=== PATIENT | male | born 1940 | race Caucasian/White ===

== ENCOUNTER → 2016-10-20 | Outpatient (CLI) | payer MEDICARE ==
[~2016-10-20] MED LIST: /WARF5TA; CORD200T; LASI40TA; LIPI80TA; LUMIGAN EYE; PRIN20TA3; TENO100T
[2016-10-20 07:56] LABS: INR 2.89
== END ==
LOC: M LAB 06:47
PROVIDERS: ATTEND Physician Assistant
DX: I48.0 Paroxysmal atrial fibrillation (principal)

== ENCOUNTER 2016-10-25 11:48 | Inpatient (IN) | payer MEDICARE ==
[~2016-10-25] VITALS: Ht 175.3 cm; Wt 99.5 kg
[~2016-10-25 11:48] MED LIST changes: -AMIO20TA PO; -AMLO5TAB2 PO; -ATEN50TA2 PO; -ATOR40TA PO; -AUGM875T27 PO; -BACL10TA2 PO; -DRIS50002 PO; -FURO40TA2 PO; -LISI40TAB PO; -LOSA100T36 PO; -METF-699 PO; -OLOP1OPD OU; -TRAV04OPD OU; -WARF-18 PO; -WARF-23 PO
[2016-10-25] MEDS ORDERED: ALBUTEROL SULFATE 2.5 MG/0.5 ML INH NEB SOLN As Ordered ONE (13:04)
[2016-10-25] MEDS ORDERED: IPRATROPIUM 0.5MG/ALBUTEROL 2.5MG INH SOL UD 3ML (DUONEB)(J7620) As Ordered ONE (13:04)
[2016-10-25] MEDS ORDERED: cefTRIAXone SOD 1 GM VIAL (J0696) As Ordered ONE (13:07)
[2016-10-25] MEDS ORDERED: AZITHROMYCIN INJ 500MG VIAL (J0456) As Ordered ONE (13:07)
[2016-10-25 13:17] LABS: BASO % 0.4 % (0.0-1.0); EOS # 0.1 K/mm3 (0.0-0.50); EOS % 1.7 % (0.0-3.0); LARGE UNSTAINED CELL # 0.2 K/mm3 (0.0-0.4); LARGE UNSTAINED CELL % 4.1 % (0.0-4.0); LYMPH # 0.8 K/mm3 (1.5-4.5); LYMPH % 17.5 % (24.0-44.0); MEAN CORPUSCULAR HGB CONC 34.5 g/dl (32.0-36.5); MEAN CORPUSCULAR VOLUME 89.9 fl (80.0-96.0); MONO # 0.3 K/mm3 (0.0-0.8); MONO % 6.1 % (0.0-5.0); NEUTROPHILS # 3.1 K/mm3 (1.8-7.7); NEUTROPHILS % 70.3 % (36.0-66.0); PLATELET COUNT, AUTOMATED 181 k/mm3 (150-450); RED CELL DISTRIBUTION WIDTH 13.3 % (11.5-14.5); WHITE BLOOD COUNT 4.3 K/mm3 (4.0-10.0)
[2016-10-25 13:27] LABS: INR 2.64
[2016-10-25 13:30] LABS: ANION GAP 9 MEQ/L (8-16); BLOOD UREA NITROGEN 16 MG/DL (7-18); CALCIUM LEVEL 8.2 MG/DL (8.8-10.2); CARBON DIOXIDE LEVEL 29 MEQ/L (21-32); CHLORIDE LEVEL 100 MEQ/L (98-107); CREATININE FOR GFR 1.06 MG/DL (0.70-1.30); GLOMERULAR FILTRATION RATE > 60.0 (>42); GLUCOSE, FASTING 130 MG/DL (83-110); POTASSIUM SERUM 3.6 MEQ/L (3.5-5.1); SODIUM LEVEL 138 MEQ/L (136-145)
[2016-10-25] MEDS ORDERED: WARF-18 PO (13:34)
[2016-10-25] MEDS ORDERED: FURO40TA2 PO (13:34)
[2016-10-25] MEDS ORDERED: ATEN50TA2 PO (13:34)
[2016-10-25] MEDS ORDERED: ATOR40TA PO (13:34)
[2016-10-25] MEDS ORDERED: LISI40TAB PO (13:34)
[2016-10-25] MEDS ORDERED: BACL10TA2 PO (13:34)
[2016-10-25] MEDS ORDERED: AMLO5TAB2 PO (13:34)
[2016-10-25] MEDS ORDERED: AMIO20TA PO (13:34)
[2016-10-25] MEDS ORDERED: WARF-23 PO (13:34)
[2016-10-25] MEDS ORDERED: METF-699 PO (13:34)
[2016-10-25] MEDS ORDERED: TRAV04OPD OU (13:35)
[2016-10-25] MEDS ORDERED: OLOP1OPD OU (13:35)
[2016-10-25] MEDS ORDERED: DRIS50002 PO (13:35)
[2016-10-25] MEDS ORDERED: LOSA100T36 PO (13:39)
[2016-10-25] MEDS ORDERED: IPRATROPIUM 0.5MG/ALBUTEROL 2.5MG INH SOL UD 3ML (DUONEB)(J7620) NEB PRN (14:45)
[2016-10-25] MEDS ORDERED: GLUCAGON FOR INJ 1 MG VIAL (J1610) SC PRN (14:45)
[2016-10-25] MEDS ORDERED: DEXTROSE 50% 50 ML SYRINGE IV PRN (14:45)
[2016-10-25] MEDS ORDERED: GLUCOSE 4 GM CHEW TABLET PO PRN (14:45)
[2016-10-25] MEDS ORDERED: WARFARIN SOD 5 MG TAB PO SCH (17:00)
--- NOTE | 2016-10-25 17:15 | EDDOCDS ---
Physician Documentation [facility] Name: Nick Bonner Age: 76 yrs Sex: Male : 1940 Arrival Date: 10/25/2016 Time: 11:48 Bed 18 Private MD: NO PRIMARY PHYSICIAN, . Disposition: 10/25/16 14:25 Hospitalization ordered by Harshad Burden for Inpatient Admission. Preliminary diagnosis are Pneumonia, unspecified organism, Acute combined systolic (congestive) and diastolic (congestive) heart failure. - Bed requested for 4 [place]. - Status is Inpatient Admission. [id number] - Condition is Stable. - Problem is an acute exacerbation. - Symptoms are unchanged. Historical: - Allergies: no known allergies; - Home Meds: 1. Coumadin 5 mg Oral tab 1 tab once daily (Last dose: 10/24/2016 17:00) 2. metformin 500 mg Oral tab 1 tab 2 times per day (Last dose: 10/25/2016) 3. atenolol 50 mg Oral tab 1 tab 2 times per day (Last dose: 10/25/2016) 4. amlodipine 5 mg Oral tab 1 tab once daily (Last dose: 10/25/2016) 5. cyclobenzaprine 10 mg Oral tab 1 tab 3 times per day (Last dose: 10/25/2016) 6. Lipitor 40 mg Oral tab 1 tab once daily (Last dose: 10/24/2016) 7. lisinopril 40 mg Oral tab 1 tab once daily (Last dose: 10/25/2016) 8. Pacerone 200 mg oral tab 1 tab once daily (Last dose: 10/25/2016) 9. furosemide 40 mg Oral tab 1 tab once daily (Last dose: 10/25/2016) - PMHx: Atrial Fib; CAD; CHF; Hypercholesterolemia; Hypertension; Diabetes - NIDDM: controlled; - PSHx: Pacemaker insertion 2010; Right ankle repair, nerve repair; - Social history: Smoking status: Patient states was never smoker of tobacco. No barriers to communication noted, The patient speaks fluent Armenian. - Family history: Not pertinent. - : The pt / caregiver states he / she is on anticoagulants: coumadin. Home medication list is obtained from the patient. - Exposure Risk Screening:: None identified. Vital Signs: 10/25 11:51 BP 152 / 78; Pulse 70; Resp 18 S; Temp 97.9(T); Pulse Ox 94% on R/A; Weight 102.06 kg / gr2 225 lbs (R); Height 5 ft. 9 in. (175.26 cm) (R); Pain 3/10; 12:16 BP 148 / 73 (auto/); cjh 12:20 Pulse 70 MON; Pulse Ox 92% ; cjh 12:29 Pulse 68 MON; Pulse Ox 94% ; cjh 12:31 BP 147 / 81 (auto/); cjh 12:46 BP 160 / 75 (auto/); cjh 12:47 Pulse 68 MON; Pulse Ox 96% ; cjh 13:01 BP 140 / 67 (auto/); cjh 13:01 Pulse 68 MON; Pulse Ox 95% ; cjh 14:16 BP 146 / 70 (auto/); cjh 14:16 Pulse 68 MON; Pulse Ox 96% ; cjh 14:31 BP 137 / 68 (auto/); cjh 14:31 Pulse 68 MON; Pulse Ox 96% ; cjh 14:45 Pulse 68 MON; Pulse Ox 95% ; cjh 14:46 BP 139 / 63 (auto/); cjh 15:00 Pulse 68 MON; Pulse Ox 96% ; cjh 15:01 BP 145 / 72 (auto/); cjh 15:15 Pulse 68 MON; Pulse Ox 95% ; cjh 15:16 BP 143 / 61 (auto/); cjh 15:30 Pulse 68 MON; Pulse Ox 95% ; cjh 15:31 BP 139 / 61 (auto/); cjh 15:45 Pulse 68 MON; Pulse Ox 95% ; cjh 15:46 BP 152 / 72 (auto/); cjh 16:16 BP 154 / 80 (auto/); cjh 16:16 BP 154 / 80; Pulse 68 MON; Resp 18; Temp 98.5; Pulse Ox 93% ; Pain 0/10; cjh 11:51 Body Mass Index 33.23 (102.06 kg, 175.26 cm) gr2 MDM: 12:11 ECG WITH READING ER PHYS+CARDIAG ordered. EDMS 12:57 azithromycin 500 mg IVPB once over 1 hrs; dilute in 250mL of D5W or NS ordered. ke 12:57 cefTRIAXone 1 grams IVPB once over 30 mins; dilute in 50mL of NS or D5W ordered. ke 12:57 -Blood Culture (Adults Only), peripheral from different site, or from device/port/PICC ke etc. if present ordered. 12:57 Christmas Tree Grower/Pulse Ox/q 15 min VS ordered. ke 12:57 IV Saline Lock ordered. ke 12:57 Oxygen at 4L/Min NC or Home dosage ordered. ke 12:57 Rhythm Strip to chart ordered. ke 12:57 Albuterol 5 mg Nebulizer once ordered. ke 12:57 Albuterol-Ipratropium 3 ml Inhalation once ordered. ke 12:57 Call Respiratory ordered. ke 12:58 Call Respiratory complete. ar3 12:58 B-Type Natiuretic Peptide Ordered. EDMS 12:58 Basic Metabolic Profile Ordered. EDMS 12:58 CBC with Diff Ordered. EDMS 12:58 Cardiac Injury Profile Ordered. EDMS 12:58 Troponin Ordered. EDMS 12:58 -Blood Culture (Adults Only), peripheral from different site, or from device/port/PICC ar3 etc. if present complete. 12:59 PT/INR Ordered. EDMS 12:59 -Blood Culture Ordered. EDMS 12:59 BED REQUEST+ADM ordered. EDMS 13:00 BLOOD CULTURES Ordered. EDMS 13:08 Financial registration complete. mm15 13:10 [facility] [place] was scanned into [employer] and attached to record. mm15 14:17 Misc Bulldogger Order ordered. ke 14:18 Misc Bulldogger Order complete. lbd 14:22 B-Type Natiuretic Peptide Reviewed. ke 14:22 Basic Metabolic Profile Reviewed. ke 14:22 CBC with Diff Reviewed. ke 14:22 PT/INR Reviewed. ke 14:22 Cardiac Injury Profile Reviewed. ke 14:22 Troponin Reviewed. ke 14:24 Reading, outside exam Ordered. EDMS 14:48 Admission / Observation Status ordered. EDMS 14:48 CONSISTENT CARBOHYDRATES ordered. EDMS 14:49 SPUTUM CULTURE AND GRAM STAIN Ordered. EDMS Administered Medications: 13:05 Drug: Albuterol 5 mg [albuterol sulfate 2.5 mg/0.5 mL solution for nebulization (1 mL)] 7 Route: Nebulizer; 13:15 Follow up: Response: Nebulizer completed sd7 13:05 Drug: Albuterol-Ipratropium 3 ml [ipratropium-albuterol 0.5 mg-3 mg(2.5 mg base)/3 mL sd7 nebulization soln (3 mL)] Route: Inhalation; 13:15 Follow up: Response: Nebulizer completed 13:21 Drug: cefTRIAXone 1 grams Route: IVPB; Infused Over: 30 mins; Site: right forearm; [facility] 14:11 Follow up: IV Status: Completed infusion; IV Intake: 50ml [facility] 14:11 Drug: azithromycin 500 mg [azithromycin 500 mg intravenous solution] Route: IVPB; cjh Infused Over: 1 hrs; Site: right forearm; 16:27 Follow up: IV Status: Completed infusion; IV Intake: 250ml [facility] Signatures: Dispatcher [employer] EDMS Saundra Weeks, Hazardous Materials Tanker Driver Unit lbd Nolbe Knight RN RN dwg Michele Sparrow, GRAIN BROKER AND MARKET OPERATOR GRAIN BROKER AND MARKET OPERATOR Radha King, SECURITIES LENDING TRADER SECURITIES LENDING TRADER ar3 Jenelle MagdalenoRN RN js13 Keysha Van RN RN [facility] [place] mm15 Micah Townsend RN Kathryn Moran sa RT The chart was reviewed and I authenticate all verbal orders and agree with the evaluation and treatment provided.Attachments: 13:10 [facility] Payment Agreement mm15 MTDD
--- NOTE | 2016-10-25 17:15 | EDDOCDS ---
Nurse's Notes [facility] Name: Nick Bonner Age: 76 yrs Sex: Male : 1940 Arrival Date: 10/25/2016 Time: 11:48 Bed 18 Private MD: NO PRIMARY PHYSICIAN, . Diagnosis: Pneumonia, unspecified organism;Acute combined systolic (congestive) and diastolic (congestive) heart failure Presentation: 10/25 11:55 Presenting complaint: Patient states: Productive cough, difficulty breathing for 5 dwg days, worsening progressively. Adult Sepsis Screening: The patient does not have new or worsening altered mentation. Patient's respiratory rate is less than 22. Systolic blood pressure is greater than 100. Patient has a qSOFA score of 0- Negative Sepsis Screen. Suicide/Homicide risk assessment- the patient denies having any suicidal and/or homicidal ideations and does not present with any other emotional, behavioral or mental health complaints. Status: Patient is not a digital service engineer or dependent. Transition of care: Patient was received from [facility]. Red Flag criteria, patient assessed and taken directly to a bed. 11:55 Acuity: INDIRA Level 3 [facility] 11:55 Method Of Arrival: Walkin/Carried/Asstd [facility] Triage Assessment: 12:02 General: Appears in no apparent distress. Pain: Denies pain. [facility] Historical: - Allergies: no known allergies; - Home Meds: 1. Coumadin 5 mg Oral tab 1 tab once daily (Last dose: 10/24/2016 17:00) 2. metformin 500 mg Oral tab 1 tab 2 times per day (Last dose: 10/25/2016) 3. atenolol 50 mg Oral tab 1 tab 2 times per day (Last dose: 10/25/2016) 4. amlodipine 5 mg Oral tab 1 tab once daily (Last dose: 10/25/2016) 5. cyclobenzaprine 10 mg Oral tab 1 tab 3 times per day (Last dose: 10/25/2016) 6. Lipitor 40 mg Oral tab 1 tab once daily (Last dose: 10/24/2016) 7. lisinopril 40 mg Oral tab 1 tab once daily (Last dose: 10/25/2016) 8. Pacerone 200 mg oral tab 1 tab once daily (Last dose: 10/25/2016) 9. furosemide 40 mg Oral tab 1 tab once daily (Last dose: 10/25/2016) - PMHx: Atrial Fib; CAD; CHF; Hypercholesterolemia; Hypertension; Diabetes - NIDDM: controlled; - PSHx: Pacemaker insertion 2010; Right ankle repair, nerve repair; - Social history: Smoking status: Patient states was never smoker of tobacco. No barriers to communication noted, The patient speaks fluent Nepali. - Family history: Not pertinent. - : The pt / caregiver states he / she is on anticoagulants: coumadin. Home medication list is obtained from the patient. - Exposure Risk Screening:: None identified. Screenin:20 Screening information is obtained from the patient. Fall risk: No risks identified. [facility] Assistance ADL's: requires no assistance with activities of daily living. Abuse/DV Screen: The patient / caregiver reports he/she is: not in a situation that causes fear, pain or injury. Nutritional screening: No deficits noted. Advance Directives: There is no active DNR order. home support is adequate. Assessment: 12:30 General: Appears in no apparent distress, Behavior is appropriate for age, cooperative. [facility] Pain: Denies pain. Neurological: Level of Consciousness is awake, alert, Oriented to person, place, time. Cardiovascular: Chest pain is denied. Respiratory: Airway is patent Respiratory effort is even, labored, Respiratory pattern is regular, symmetrical, Breath sounds are coarse bilaterally. GI: No deficits noted. : Urine is clear. Derm: Skin is pink, warm & dry. Musculoskeletal: Range of motion intact in all extremities. 13:21 General: no new problems or complaints, resting quietly, respiratory treatment in [facility] process, denies additional needs. 14:13 General: resting quietly, IV"s infusing without difficulty, awaiting dispo, no new [facility] problems or complaints. 15:30 General: IV medication infusing without difficulty, denies further needs at present. [facility] 16:29 General: Appears in no apparent distress, comfortable, Behavior is appropriate for age, [facility] cooperative, denies pain, visitor at bedside, no new problems or complaints, awaiting admission. 16:44 General: no changes from previous, transport to [facility] [place] pending. [facility] Vital Signs: 11:51 BP 152 / 78; Pulse 70; Resp 18 S; Temp 97.9(T); Pulse Ox 94% on R/A; Weight 102.06 kg gr2 (R); Height 5 ft. 9 in. (175.26 cm) (R); Pain 3/10; 12:16 BP 148 / 73 (auto/); cjh 12:20 Pulse 70 MON; Pulse Ox 92% ; cjh 12:29 Pulse 68 MON; Pulse Ox 94% ; cjh 12:31 BP 147 / 81 (auto/); cjh 12:46 BP 160 / 75 (auto/); cjh 12:47 Pulse 68 MON; Pulse Ox 96% ; cjh 13:01 BP 140 / 67 (auto/); cjh 13:01 Pulse 68 MON; Pulse Ox 95% ; cjh 14:16 BP 146 / 70 (auto/); cjh 14:16 Pulse 68 MON; Pulse Ox 96% ; cjh 14:31 BP 137 / 68 (auto/); cjh 14:31 Pulse 68 MON; Pulse Ox 96% ; cjh 14:45 Pulse 68 MON; Pulse Ox 95% ; cjh 14:46 BP 139 / 63 (auto/); cjh 15:00 Pulse 68 MON; Pulse Ox 96% ; cjh 15:01 BP 145 / 72 (auto/); cjh 15:15 Pulse 68 MON; Pulse Ox 95% ; cjh 15:16 BP 143 / 61 (auto/); cjh 15:30 Pulse 68 MON; Pulse Ox 95% ; cjh 15:31 BP 139 / 61 (auto/); cjh 15:45 Pulse 68 MON; Pulse Ox 95% ; cjh 15:46 BP 152 / 72 (auto/); cjh 16:16 BP 154 / 80 (auto/); cjh 16:16 BP 154 / 80; Pulse 68 MON; Resp 18; Temp 98.5; Pulse Ox 93% ; Pain 0/10; cjh 11:51 Body Mass Index 33.23 (102.06 kg, 175.26 cm) gr2 Vitals: 11:51 Log In Time: October 25, 2016 at 11:51. gr2 ED Course: 11:51 Patient visited by Toña Marrufo. gr2 11:51 NO PRIMARY PHYSICIAN, . is Private Physician. gr2 11:51 Patient moved to Waiting gr2 11:53 Patient visited by Toña Marrufo. gr2 11:53 Patient moved to Pre RCE gr2 11:57 Triage Initiated dwg 12:03 Patient moved to 18 dwg 12:18 EKG done. (by ED staff). Reviewed by Brandon Duval MD. ar3 12:20 Patient visited by Radha Terry PCA. ar3 12:20 The patient / caregiver is instructed regarding the plan of care and ED course. Patient saurabh has correct armband on for positive identification. Placed in gown. Bed in low position. Call light in reach. Side rails up X2. lgsw on. Pulse ox on. Cardiac monitoring not applicable on this patient. 12:20 Inserted saline lock: 20 gauge in right forearm and blood collected. The patient [facility] tolerated the procedure well. Labs drawn. (by ED staff). Sent per order to lab. Labs/Blood culture drawn. 12:45 [facility] Sparrow FNP [facility]. ke 12:45 Patient visited by Michele Sparrow FNP. ke 12:45 Patient visited by Michele Sparrow FNP. ke 12:59 PT/INR Sent. [facility] 13:00 -Blood Culture Sent. [facility] 13:00 B-Type Natiuretic Peptide Sent. [facility] 13:00 Basic Metabolic Profile Sent. [facility] 13:00 CBC with Diff Sent. [facility] 13:00 Cardiac Injury Profile Sent. [facility] 13:00 Troponin Sent. [facility] 13:10 [facility] Payment Agreement was scanned into [employer] and attached to record. mm15 13:17 Patient visited by Michele Sparrow FNP. ke 13:54 Patient visited by Michele Sparrow FNP. ke 14:21 Patient visited by Michele Sparrow FNP. ke 14:25 Harshad Burden is Hospitalizing Provider. ke 16:16 No procedures done that require assistance. [facility] Administered Medications: 13:05 Drug: Albuterol 5 mg [albuterol sulfate 2.5 mg/0.5 mL solution for nebulization (1 mL)] 7 Route: Nebulizer; 13:15 Follow up: Response: Nebulizer completed 13:05 Drug: Albuterol-Ipratropium 3 ml [ipratropium-albuterol 0.5 mg-3 mg(2.5 mg base)/3 mL sd7 nebulization soln (3 mL)] Route: Inhalation; 13:15 Follow up: Response: Nebulizer completed sd7 13:21 Drug: cefTRIAXone 1 grams Route: IVPB; Infused Over: 30 mins; Site: right forearm; cj 14:11 Follow up: IV Status: Completed infusion; IV Intake: 50ml cjh 14:11 Drug: azithromycin 500 mg [azithromycin 500 mg intravenous solution] Route: IVPB; cjh Infused Over: 1 hrs; Site: right forearm; 16:27 Follow up: IV Status: Completed infusion; IV Intake: 250ml cjh Intake: 14:11 IV: 50.00ml; Total: 50.00ml. cjh 16:27 IV: 250.00ml; Total: 300.00ml. cjh RT: 13:07 Initial Med Neb Given as ordered Patient was instructed and evaluated on procedure sd7 Patient tolerated procedure well without adverse effect. Respiratory: Airway is patent Respiratory effort is unlabored, Breath sounds with wheezes bilaterally. at expiration. Order Results: Lab Order: B-Type Natiuretic Peptide; SPEC'M 10/25/16 12:52 Test: BRAIN NATRIURETIC PEPTIDE; Value: 186; Range: <100; Abnormal: Above high normal; Units: PG/ML; Status: F Lab Order: Basic Metabolic Profile; SPEC'M 10/25/16 12:52 Test: GLUCOSE, FASTING; Value: 130; Range: 83-110; Abnormal: Above high normal; Units: MG/DL; Status: F Test: BLOOD UREA NITROGEN; Value: 16; Range: 7-18; Units: MG/DL; Status: F Test: CREATININE FOR GFR; Value: 1.06; Range: 0.70-1.30; Units: MG/DL; Status: F Test: GLOMERULAR FILTRATION RATE; Value: > 60.0; Range: >42; Status: F Test: SODIUM LEVEL; Value: 138; Range: 136-145; Units: MEQ/L; Status: F Test: POTASSIUM SERUM; Value: 3.6; Range: 3.5-5.1; Units: MEQ/L; Status: F Test: CHLORIDE LEVEL; Value: 100; Range: 98-107; Units: MEQ/L; Status: F Test: CARBON DIOXIDE LEVEL; Value: 29; Range: 21-32; Units: MEQ/L; Status: F Test: ANION GAP; Value: 9; Range: 8-16; Units: MEQ/L; Status: F Test: CALCIUM LEVEL; Value: 8.2; Range: 8.8-10.2; Abnormal: Below low normal; Units: MG/DL; Status: F Test Note: ; Units are mL/min/1.73 m2 Chronic Kidney Disease Staging per NKF: Stage I & II GFR >=60 Normal to Mildly Decreased Stage III GFR 30-59 Moderately Decreased Stage IV GFR 15-29 Severely Decreased Stage V GFR <15 Very Little GFR Left ESRD GFR <15 on NAVIGATION TEACHER Lab Order: CBC with Diff; SPEC'M 10/25/16 12:52 Test: WHITE BLOOD COUNT; Value: 4.3; Range: 4.0-10.0; Units: K/mm3; Status: F Test: RED BLOOD COUNT; Value: 4.00; Range: 4.30-6.10; Abnormal: Below low normal; Units: M/mm3; Status: F Test: HEMOGLOBIN; Value: 12.4; Range: 14.0-18.0; Abnormal: Below low normal; Units: g/dl; Status: F Test: HEMATOCRIT; Value: 36.0; Range: 42.0-52.0; Abnormal: Below low normal; Units: %; Status: F Test: MEAN CORPUSCULAR VOLUME; Value: 89.9; Range: 80.0-96.0; Units: fl; Status: F Test: MEAN CORPUSCULAR HEMOGLOBIN; Value: 31.0; Range: 27.0-33.0; Units: pg; Status: F Test: MEAN CORPUSCULAR HGB CONC; Value: 34.5; Range: 32.0-36.5; Units: g/dl; Status: F Test: RED CELL DISTRIBUTION WIDTH; Value: 13.3; Range: 11.5-14.5; Units: %; Status: F Test: PLATELET COUNT, AUTOMATED; Value: 181; Range: 150-450; Units: k/mm3; Status: F Test: NEUTROPHILS %; Value: 70.3; Range: 36.0-66.0; Abnormal: Above high normal; Units: %; Status: F Test: LYMPH %; Value: 17.5; Range: 24.0-44.0; Abnormal: Below low normal; Units: %; Status: F Test: MONO %; Value: 6.1; Range: 0.0-5.0; Abnormal: Above high normal; Units: %; Status: F Test: EOS %; Value: 1.7; Range: 0.0-3.0; Units: %; Status: F Test: BASO %; Value: 0.4; Range: 0.0-1.0; Units: %; Status: F Test: LARGE UNSTAINED CELL %; Value: 4.1; Range: 0.0-4.0; Abnormal: Above high normal; Units: %; Status: F Test: NEUTROPHILS #; Value: 3.1; Range: 1.8-7.7; Units: K/mm3; Status: F Test: LYMPH #; Value: 0.8; Range: 1.5-4.5; Abnormal: Below low normal; Units: K/mm3; Status: F Test: MONO #; Value: 0.3; Range: 0.0-0.8; Units: K/mm3; Status: F Test: EOS #; Value: 0.1; Range: 0.0-0.50; Units: K/mm3; Status: F Test: BASO #; Value: 0.0; Range: 0.0-0.2; Units: K/mm3; Status: F Test: LARGE UNSTAINED CELL #; Value: 0.2; Range: 0.0-0.4; Units: K/mm3; Status: F Lab Order: Cardiac Injury Profile; SPEC'M 10/25/16 12:52 Test: CPK CREATINE PHOSPHOKINASE; Value: 83; Range: 39-308; Units: U/L; Status: F Test: CK-MB VALUE MASS; Value: 1.2; Range: 0.0-3.6; Units: NG/ML; Status: F Test: MB/CK RELATIVE INDEX; Value: 1.44; Range: < OR =4; Status: F Test Note: ; DIAGNOSIS CRITERIA MMB ng/ml Relative Index (RI) NON-AMI < or = 5 N/A [place] > 5 < or = 4 AMI > 5 > 4 Lab Order: Troponin; SPEC'M 10/25/16 12:52 Test: TROPONIN I; Value: < 0.02; Range: < 0.10; Units: NG/ML; Status: F Test Note: ; Troponin I Reference Interval for Siemens [place] LOCI: 99th Percentile= 0.00-0.045 ng/ml Risk Stratification: <= 0.10 ng/ml Decreased Risk for Adverse Clinical Events. 0.10-1.50 ng/ml Increased Risk for Adverse Clinical Events. Evaluation of additional criterion and/or repeat testing in 2-6 hours is suggested to rule out myocardial damage. >= 1.50 ng/ml Indicative of Myocardial Injury. Lab Order: PT/INR; SPEC'M 10/25/16 12:52 Test: PROTHROMBIN TIME; Value: 28.2; Range: 12.3-14.5; Abnormal: Above high normal; Units: SECONDS; Status: F Test: INR; Value: 2.64; Status: F Test Note: ; THERAPUTIC HUMAN INR VALUES INDICATIONS NORMAL RANGES PROPHYLAXIS/TREATMENT OF: VENOUS THROMBOSIS 2.0-3.0 PULMONARY EMBOLISM 2.0-3.0 PREVENTION OF SYSTEMIC EMBOLISM FROM: TISSUE HEART VALVES 2.0-3.0 ACUTE MYOCARDIAL INFARCTION 2.0-3.0 VALVULAR HEART DISEASE 2.0-3.0 ATRIAL FIBRILLATION 2.0-3.0 MECHANICAL VALVES(HIGH RISK) 2.5-3.5 RECURRENT MYOCARDIAL INFARCTION 2.5-3.5 Outcome: 14:25 Decision to Hospitalize by Provider. ke 16:42 Discharge Assessment: Patient awake, alert and oriented x 3. No cognitive and/or [facility] functional deficits noted. Patient verbalized understanding of disposition instructions. patient administered narcotics - no. The following High Risk Discharge criteria are identified: None. Admitted to Med/Surg via stretcher, with chart. Condition: good Condition: stable Condition: improved. No special radiology studies were completed. Property :Personal belongings accompany Pt. 17:14 Patient left the ED. [id number] Signatures: Noble Knight, RN RN Michele Shah, STEREOTYPER APPRENTICE STEREOTYPER APPRENTICE Radha King, MARCELL OFFSHORE DIVER wing3 Jenelle Magdaleno RN RN js13 Keysha Van RN RN [facility] Toña Marrufo gr2 [place] mm15 Kathryn Park,RT RT sd7 MTDD
[2016-10-25 17:20] VITALS: BP 161/85
[2016-10-25] MEDS: HumaLOG INSULIN (NovoLOG) PER UNIT SC SCH ×2 (17:30→20:06)
[2016-10-25] MEDS: FUROSEMIDE 40 MG/4 ML VIAL (J1940) IV SCH (18:04)
--- NOTE | 2016-10-25 18:04 | HPE ---
DATE OF ADMISSION: 10/25/2016 PRIMARY CARE PROVIDER: Priscilla Liriano REASON FOR ADMISSION: Shortness of breath getting progressively worse over the past 5 days. DOCUMENT IMPROVEMENT SPECIALIST: Dr. Kowalski HISTORY OF PRESENT ILLNESS: The patient is a 76-year-old male with past medical history significant for atrial fibrillation, coronary artery disease, congestive heart failure, hypertension, hyperlipidemia, non-insulin dependent diabetes presented to the emergency room complaining of worsening difficulty breathing for the past 5 days. Stated he had no sick contacts but has been having productive cough with green sputum. In the emergency room Chest xray from urgent care clinic was reviewed, which showed middle lobe pneumonia. He was given a dose of ceftriaxone and a dose of azithromycin as well as a breathing treatment. Hospitalist was called for the admission. The patient states he is not normally on any oxygen at home. He denied any chest pain. Denied any nausea or vomiting. Denied any palpitation. Denied any fevers but was complaining of chills. REVIEW OF SYSTEMS: 12-point review of systems obtained, all which was negative except for those mentioned above. PAST MEDICAL HISTORY: Significant for atrial fibrillation and coronary artery disease, congestive heart failure, hyperlipidemia, hypertension, non-insulin dependent diabetes. PAST SURGICAL HISTORY: Significant for pacemaker insertion in 2010, right ankle repair, pilonidal cyst. SOCIAL HISTORY: The patient denies any tobacco use. Lives at home with his sister. Drinks occasionally. ALLERGIES: No known drug allergies. HOME MEDICATIONS: Include - amiodarone 200 mg by mouth daily - amlodipine 5 mg by mouth daily - atenolol 50 mg by mouth twice a day - atorvastatin 40 mg at bedtime - baclofen 10 mg by mouth twice a day - Lasix 40 mg daily - lisinopril 40 mg daily - losartan 100 mg by mouth daily - metformin 500 mg by mouth twice a day with meals - Coumadin 2.5 mg Monday, Monday, Monday, 5 mg Monday, , Monday, Monday FAMILY HISTORY: Noncontributory. PHYSICAL EXAMINATION: Blood pressure 150/78, pulse 70, respiratory rate 18, temperature 97.9, pulse ox 94% on room air. HEENT: Pupils equal round reactive to light accommodation is supple. No jugular venous distention. LUNGS: Are clear bilaterally. ABDOMEN: Soft, nontender, nondistended. EXTREMITIES: No clubbing, cyanosis, trace edema. NEURO: Cranial nerves II XII grossly intact. No focal deficits. CARDIAC: Regular rate and rhythm. LABORATORY FINDINGS: WBC 4.3, hemoglobin 12.4, hematocrit 36, platelet count 181 , sodium 130, 1003.6, chloride 100, BUN 16, creatinine 1.06, fasting glucose 130. INR 2.64. IMAGING: Chest x-ray of the report was reviewed. The images being loaded into our system which showed right lobe pneumonia. ASSESSMENT/PLAN: 1. Shortness of breath, likely secondary to pneumonia plus or minus congestive heart failure. We will continue the patient's home dose of Lasix. Will continue antibiotics started in the emergency room; ceftriaxone, azithromycin. We will admit the patient to med/surg, monitor overnight. Continue oxygen, titrate for pulse ox of 90 or higher. Continue DuoNebs as needed sputum culture was ordered. Blood cultures were ordered from the emergency room as well as Acapella. 2. History of atrial fibrillation. Continue the patient's Pacerone as well as a Coumadin . Currently therapeutic. Will continue to order daily INRs. 3. History of congestive heart failure. No current echocardiogram on record. The patient had mildly elevated BNP of 186, does not appear to be grossly overloaded. 4. History of hypertension. Continue the patient's home medications of atenolol, amlodipine, lisinopril. 5. Hyperlipidemia. Continue Lipitor 40 mg daily. 6. Diabetes. Hold metformin while in the hospital. Will start the patient on insulin sliding scale with Accu-Cheks before meals and at bedtime 8. Deep vein thrombosis. The patient is already on Coumadin with a therapeutic INR. 9. History of coronary artery disease. No history of stents or bypass. The patient denies any chest pain at this time and negative troponin. The patient will be seen by Dr. Richardson in the morning. SHYAM
[2016-10-25] MEDS: ATENOLOL 50 MG TAB PO SCH (20:07)
[2016-10-25] MEDS: BACLOFEN 10 MG TAB PO SCH (20:08)
[2016-10-25] MEDS: ATORVASTATIN 20 MG TAB PO SCH (20:08)
[2016-10-25] MEDS: LATANOPROST 0.005% OPHTH SOLN 2.5 ML OU SCH (20:08)
[2016-10-25] MEDS: OLOPATADINE 0.1% OPHTH SOL 5ML(PATANOL) OU SCH (20:08)
[2016-10-25] MEDS: IPRATROPIUM 0.5MG/ALBUTEROL 2.5MG INH SOL UD 3ML (DUONEB)(J7620) NEB SCH (20:16)
[2016-10-25 22:00] VITALS: BP 161/76
[2016-10-26] MEDS: IPRATROPIUM 0.5MG/ALBUTEROL 2.5MG INH SOL UD 3ML (DUONEB)(J7620) NEB SCH ×4 (01:25→19:24)
[2016-10-26] MEDS: ACETAMINOPHEN TAB 650MG DOSE (2X325MG) PO PRN ×2 (01:47→15:19)
[2016-10-26 06:37] LABS: BASO % 0.7 % (0.0-1.0); EOS # 0.1 K/mm3 (0.0-0.50); EOS % 2.2 % (0.0-3.0); LARGE UNSTAINED CELL # 0.2 K/mm3 (0.0-0.4); LARGE UNSTAINED CELL % 3.1 % (0.0-4.0); LYMPH % 17.8 % (24.0-44.0); MEAN CORPUSCULAR HEMOGLOBIN 30.5 pg (27.0-33.0); MEAN CORPUSCULAR HGB CONC 33.2 g/dl (32.0-36.5); MONO # 0.3 K/mm3 (0.0-0.8); MONO % 5.6 % (0.0-5.0); NEUTROPHILS # 3.4 K/mm3 (1.8-7.7); NEUTROPHILS % 70.6 % (36.0-66.0); PLATELET COUNT, AUTOMATED 171 k/mm3 (150-450); RED CELL DISTRIBUTION WIDTH 14.1 % (11.5-14.5); WHITE BLOOD COUNT 4.9 K/mm3 (4.0-10.0)
[2016-10-26 06:42] LABS: INR 2.9
[2016-10-26 07:00] LABS: ALBUMIN 3.2 GM/DL (3.2-5.2); ALBUMIN/GLOBULIN RATIO 0.86 (1.00-1.93); ALKALINE PHOSPHATASE 95 U/L (45-117); ALT/SGPT 28 U/L (12-78); ANION GAP 9 MEQ/L (8-16); AST/SGOT 16 U/L (15-37); BILIRUBIN,TOTAL 0.5 MG/DL (0.2-1.0); BLOOD UREA NITROGEN 16 MG/DL (7-18); CALCIUM LEVEL 7.7 MG/DL (8.8-10.2); CARBON DIOXIDE LEVEL 30 MEQ/L (21-32); CHLORIDE LEVEL 101 MEQ/L (98-107); CREATININE FOR GFR 0.99 MG/DL (0.70-1.30); GLOMERULAR FILTRATION RATE > 60.0 (>42); GLUCOSE, FASTING 123 MG/DL (83-110); MAGNESIUM LEVEL 2.3 MG/DL (1.8-2.4); SODIUM LEVEL 140 MEQ/L (136-145); TOTAL PROTEIN 6.9 GM/DL (6.4-8.2)
--- NOTE | 2016-10-26 07:56 | ECGEPIP ---
Stationary ECG Study 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
[2016-10-26] MEDS: HumaLOG INSULIN (NovoLOG) PER UNIT SC SCH ×4 (09:00→21:00)
[2016-10-26] MEDS: BACLOFEN 10 MG TAB PO SCH ×2 (09:04→21:26)
[2016-10-26] MEDS: AMIODARONE 200 MG TAB (PACERONE) PO SCH (09:04)
[2016-10-26] MEDS: amLODIPine 5 MG TAB PO SCH (09:05)
[2016-10-26] MEDS: LOSARTAN 50 MG TAB PO SCH (09:05)
[2016-10-26] MEDS: ATENOLOL 50 MG TAB PO SCH ×2 (09:06→21:26)
[2016-10-26] MEDS: OLOPATADINE 0.1% OPHTH SOL 5ML(PATANOL) OU SCH ×2 (09:06→21:26)
[2016-10-26] MEDS: FUROSEMIDE 40 MG/4 ML VIAL (J1940) IV SCH ×2 (09:06→18:07)
[2016-10-26] MEDS: LISINOPRIL 40 MG TAB PO SCH (09:06)
--- NOTE | 2016-10-26 10:31 | IPN ---
DATE: 10/26/2016 Pleasant, 76-year-old gentleman seen at bedside resting comfortably. He continues on two liters of oxygen. This was titrated down earlier today. He feels that his breathing is moderately better. He denies any chest pain, productive sputum, cough or hemoptysis. OBJECTIVE: Temperature is 97.3, pulse 70, respiratory rate 20, blood pressure (BP) 123/61, SpO2 is 93% on 2 liters. General: The patient appears to be in no acute distress. He is alert and pleasant. HEENT: Unremarkable. Lungs: Diminished bibasilar breath sounds. Occasional wheeze, clears with cough. Heart: Regular rate and rhythm. Abdomen: Obese. Soft. Nontender. Nondistended. Positive bowel sounds. No masses. No rebound. Extremities: Trace edema at the ankles. No calf tenderness. LABORATORY DATA: White count 4.9, hemoglobin 12.0, and platelets 171,000. Sodium 140, potassium 3.0 - which we will supplement, chloride 101, bicarbonate 30, anion gap 9, BUN 16, creatinine is 0.99, glucose 123, magnesium 2.3, total bilirubin 0.5, AST 16, ALT 28, alkaline phosphatase 95, albumin 3.2, INR 2.90. Sputum culture is pending. Blood cultures are negative times two. ASSESSMENT AND PLAN: 1. Acute hypoxic respiratory failure secondary to community acquired pneumonia. Sputum culture is pending at this time. Will continue with Rocephin and Zithromax as well as Acapella and DuoNeb. His oxygen requirements are a little less today. Will continue to try and titrate. He has no history of requiring oxygen at home. 2. History of congestive heart failure. BNP was 186. He did not appear to be grossly volume over loaded. Will continue with his home dose of Lasix twice daily. However, his potassium was low today and will supplement this. 3. Hypokalemia. Will supplement with daily potassium. 4. Atrial fibrillation. He is currently rate controlled and therapeutic on his dose of Coumadin with INR between 2-3. 5. Hypertension. Stable on atenolol, amlodipine and lisinopril. 6. Hyperlipidemia. Continue Lipitor. 7. Diabetes. Metformin is on hold while he is in the hospital. Continue with finger sticks before meals and at bedtime. Consistent carbohydrate diet. Sliding scale insulin coverage. 8. Deep vein thrombosis (DVT) prophylaxis. He is currently therapeutic on his dose of Coumadin. 9. History of coronary artery disease. No history of stents or bypass. He denies chest pain. Had a negative troponin. Will continue to follow him daily. DISPOSITION: Anticipate home discharge in the next 24-48 hours.
[2016-10-26] MEDS: POTASSIUM CHLORIDE 10 MEQ SR TABLET PO SCH (11:27)
[2016-10-26] MEDS: AZITHROMYCIN 500 MG, VIAL MATE ADAPTER 1 EACH in D5W 250 ML IV SCH (13:01)
[2016-10-26 14:00] VITALS: BP 133/68
[2016-10-26] MEDS: cefTRIAXone SOD 1 GM in D5W MINI-BAG PLUS 50 ML IV SCH (14:53)
[2016-10-26] MEDS ORDERED: WARFARIN SOD 2.5 MG TAB PO SCH (17:00)
[2016-10-26] MEDS: ATORVASTATIN 20 MG TAB PO SCH (21:25)
[2016-10-26] MEDS: LATANOPROST 0.005% OPHTH SOLN 2.5 ML OU SCH (21:26)
[2016-10-26 22:00] VITALS: BP 124/85
[2016-10-27] MEDS: IPRATROPIUM 0.5MG/ALBUTEROL 2.5MG INH SOL UD 3ML (DUONEB)(J7620) NEB SCH ×4 (00:20→20:03)
[2016-10-27 06:00] VITALS: BP 146/86
[2016-10-27 06:38] LABS: BASO % 0.4 % (0.0-1.0); EOS # 0.1 K/mm3 (0.0-0.50); LARGE UNSTAINED CELL # 0.2 K/mm3 (0.0-0.4); LARGE UNSTAINED CELL % 4.3 % (0.0-4.0); LYMPH # 0.9 K/mm3 (1.5-4.5); LYMPH % 25.2 % (24.0-44.0); MEAN CORPUSCULAR HEMOGLOBIN 31.4 pg (27.0-33.0); MEAN CORPUSCULAR HGB CONC 35.1 g/dl (32.0-36.5); MEAN CORPUSCULAR VOLUME 89.7 fl (80.0-96.0); MONO # 0.2 K/mm3 (0.0-0.8); MONO % 6.4 % (0.0-5.0); NEUTROPHILS # 2.1 K/mm3 (1.8-7.7); NEUTROPHILS % 59.8 % (36.0-66.0); PLATELET COUNT, AUTOMATED 172 k/mm3 (150-450); RED CELL DISTRIBUTION WIDTH 13.2 % (11.5-14.5); WHITE BLOOD COUNT 3.6 K/mm3 (4.0-10.0)
[2016-10-27 06:43] LABS: INR 3.15
[2016-10-27 07:07] LABS: ALBUMIN 3.2 GM/DL (3.2-5.2); ALBUMIN/GLOBULIN RATIO 0.89 (1.00-1.93); ALKALINE PHOSPHATASE 90 U/L (45-117); ALT/SGPT 33 U/L (12-78); ANION GAP 10 MEQ/L (8-16); AST/SGOT 21 U/L (15-37); BILIRUBIN,TOTAL 0.4 MG/DL (0.2-1.0); BLOOD UREA NITROGEN 17 MG/DL (7-18); CALCIUM LEVEL 7.8 MG/DL (8.8-10.2); CARBON DIOXIDE LEVEL 28 MEQ/L (21-32); CHLORIDE LEVEL 102 MEQ/L (98-107); CREATININE FOR GFR 0.92 MG/DL (0.70-1.30); GLOMERULAR FILTRATION RATE > 60.0 (>42); GLUCOSE, FASTING 150 MG/DL (83-110); MAGNESIUM LEVEL 2.5 MG/DL (1.8-2.4); POTASSIUM SERUM 3.4 MEQ/L (3.5-5.1); SODIUM LEVEL 140 MEQ/L (136-145); TOTAL PROTEIN 6.8 GM/DL (6.4-8.2)
[2016-10-27] MEDS: AMIODARONE 200 MG TAB (PACERONE) PO SCH (09:16)
[2016-10-27] MEDS: HumaLOG INSULIN (NovoLOG) PER UNIT SC SCH ×4 (09:16→20:41)
[2016-10-27] MEDS: BACLOFEN 10 MG TAB PO SCH ×2 (09:16→20:44)
[2016-10-27] MEDS: amLODIPine 5 MG TAB PO SCH (09:17)
[2016-10-27] MEDS: POTASSIUM CHLORIDE 10 MEQ SR TABLET PO SCH (09:17)
[2016-10-27] MEDS: ATENOLOL 50 MG TAB PO SCH ×2 (09:18→20:44)
[2016-10-27] MEDS: LISINOPRIL 40 MG TAB PO SCH (09:18)
[2016-10-27] MEDS: FUROSEMIDE 40 MG/4 ML VIAL (J1940) IV SCH ×2 (09:18→17:09)
[2016-10-27] MEDS: LOSARTAN 50 MG TAB PO SCH (09:18)
[2016-10-27] MEDS: OLOPATADINE 0.1% OPHTH SOL 5ML(PATANOL) OU SCH ×2 (09:19→20:47)
[2016-10-27] MEDS: AZITHROMYCIN 500 MG, VIAL MATE ADAPTER 1 EACH in D5W 250 ML IV SCH (13:06)
--- NOTE | 2016-10-27 13:57 | IPN ---
DATE: 10/27/2016 76-year-old gentleman seen at bedside. No overnight issues. He was able to walk in the hallway today. However, he does continue with supplemental oxygen and we will see if we can further titrate his oxygen needs down today. He denies any chest pain, shortness of breath, productive sputum, but he does continue with intermittent cough. OBJECTIVE: Temperature 96.5, pulse 69, respiratory rate is 18, blood pressure 146/86, SpO2 93% of 2 liters. GENERAL: The patient appears to be in no acute distress. Is alert and oriented. HEENT: Head is atraumatic, normocephalic. Eyes: Pupils equal, round, and reactive to light and accommoddation. Throat clear. LUNGS: Intermittent expiratory wheeze more notably on the right, clears with cough. HEART: Regular rate and rhythm. ABDOMEN: Soft, obese, nontender. EXTREMITIES: No edema. No calf tenderness. LABORATORY DATA: White count 3.6, hemoglobin 11.9 and platelets are 172,000, sodium 140, potassium 3.4, which we will supplement, chloride 102, bicarbonate 28, anion gap 10, BUN 17, creatinine 0.92, glucose 150, calcium 7.8, magnesium 2.5, AST 21, ALT 33, alkaline phosphatase 90, albumin is 3.2, INR 3.15, will hold his Coumadin dose this evening. Gram stain of the sputum is negative. Blood cultures negative times two for 48 hours. ASSESSMENT/PLAN: 1. Shortness of breath, community-acquired pneumonia. Continue to supplement oxygen. Will try to titrate him down today. He is walking in the hallway. If need be, we will consider discharging him home with oxygen tomorrow as he continues to improve clinically. 2. History of congestive heart failure. On admission BNP was 186. He did not appear to be volume overloaded. He continues on his current home dose of Lasix for the time being. 3. Hypokalemia, replete. 4. Atrial fibrillation, he is currently rate controlled. His INR was elevated today. Will hold his Coumadin dose this evening. It is possibly related to the antibiotic use. Will continue to monitor his INR. Once he is discharged will need close followup on this as well. 5. Hypertension. Stable on atenolol, amlodipine, and lisinopril. 6. Hyperlipidemia. Continue with Lipitor. 7. Diabetes. Metformin on hold till he is discharged. For the time being continue with fingersticks before food and at bedtime, consistent carbohydrate diet, and sliding scale insulin coverage. 8. History of coronary artery disease. No history of stents or bypass. He denies chest pain. Negative troponin on admission. Will continue on his antihypertensives and statin therapy. 9. Deep venous thrombosis (DVT) prophylaxis. Currently on Coumadin. He is supratherapeutic today, but no active signs of bleeding or bruising. We will simply hold his dose this evening and repeat INR tomorrow. DISPOSITION: Anticipate home discharge tomorrow. He likely will not need any home services other than home oxygen which he may need for the next week or two as he continues to improve regarding his community-acquired pneumonia.
[2016-10-27 14:00] VITALS: BP 135/65
[2016-10-27] MEDS: cefTRIAXone SOD 1 GM in D5W MINI-BAG PLUS 50 ML IV SCH (15:13)
[2016-10-27] MEDS ORDERED: AUGM875T27 PO (15:58)
--- NOTE | 2016-10-27 18:15 | EDDOCDS ---
Physician Documentation Name: Nick Bonner Age: 76 yrs Sex: Male : 1940 Arrival Date: 10/25/2016 Time: 11:48 Bed 18 Private MD: NO PRIMARY PHYSICIAN, . Disposition: 10/25/16 14:25 Hospitalization ordered by Harshad Burden for Inpatient Admission. Preliminary diagnosis are Pneumonia, unspecified organism, Acute combined systolic (congestive) and diastolic (congestive) heart failure. - Bed requested for 4 [place]. - Status is Inpatient Admission. [id number] - Condition is Stable. - Problem is an acute exacerbation. - Symptoms are unchanged. Historical: - Allergies: no known allergies; - Home Meds: 1. Coumadin 5 mg Oral tab 1 tab once daily (Last dose: 10/24/2016 17:00) 2. metformin 500 mg Oral tab 1 tab 2 times per day (Last dose: 10/25/2016) 3. atenolol 50 mg Oral tab 1 tab 2 times per day (Last dose: 10/25/2016) 4. amlodipine 5 mg Oral tab 1 tab once daily (Last dose: 10/25/2016) 5. cyclobenzaprine 10 mg Oral tab 1 tab 3 times per day (Last dose: 10/25/2016) 6. Lipitor 40 mg Oral tab 1 tab once daily (Last dose: 10/24/2016) 7. lisinopril 40 mg Oral tab 1 tab once daily (Last dose: 10/25/2016) 8. Pacerone 200 mg oral tab 1 tab once daily (Last dose: 10/25/2016) 9. furosemide 40 mg Oral tab 1 tab once daily (Last dose: 10/25/2016) - PMHx: Atrial Fib; CAD; CHF; Hypercholesterolemia; Hypertension; Diabetes - NIDDM: controlled; - PSHx: Pacemaker insertion 2010; Right ankle repair, nerve repair; - Social history: Smoking status: Patient states was never smoker of tobacco. No barriers to communication noted, The patient speaks fluent Kazakh. - Family history: Not pertinent. - : The pt / caregiver states he / she is on anticoagulants: coumadin. Home medication list is obtained from the patient. - Exposure Risk Screening:: None identified. Vital Signs: 10/25 11:51 BP 152 / 78; Pulse 70; Resp 18 S; Temp 97.9(T); Pulse Ox 94% on R/A; Weight 102.06 kg / gr2 225 lbs (R); Height 5 ft. 9 in. (175.26 cm) (R); Pain 3/10; 12:16 BP 148 / 73 (auto/); cjh 12:20 Pulse 70 MON; Pulse Ox 92% ; cjh 12:29 Pulse 68 MON; Pulse Ox 94% ; cjh 12:31 BP 147 / 81 (auto/); cjh 12:46 BP 160 / 75 (auto/); cjh 12:47 Pulse 68 MON; Pulse Ox 96% ; cjh 13:01 BP 140 / 67 (auto/); cjh 13:01 Pulse 68 MON; Pulse Ox 95% ; cjh 14:16 BP 146 / 70 (auto/); cjh 14:16 Pulse 68 MON; Pulse Ox 96% ; cjh 14:31 BP 137 / 68 (auto/); cjh 14:31 Pulse 68 MON; Pulse Ox 96% ; cjh 14:45 Pulse 68 MON; Pulse Ox 95% ; cjh 14:46 BP 139 / 63 (auto/); cjh 15:00 Pulse 68 MON; Pulse Ox 96% ; cjh 15:01 BP 145 / 72 (auto/); cjh 15:15 Pulse 68 MON; Pulse Ox 95% ; cjh 15:16 BP 143 / 61 (auto/); cjh 15:30 Pulse 68 MON; Pulse Ox 95% ; cjh 15:31 BP 139 / 61 (auto/); cjh 15:45 Pulse 68 MON; Pulse Ox 95% ; cjh 15:46 BP 152 / 72 (auto/); cjh 16:16 BP 154 / 80 (auto/); cjh 16:16 BP 154 / 80; Pulse 68 MON; Resp 18; Temp 98.5; Pulse Ox 93% ; Pain 0/10; cjh 11:51 Body Mass Index 33.23 (102.06 kg, 175.26 cm) gr2 MDM: 12:11 ECG WITH READING ER PHYS+CARDIAG ordered. EDMS 12:57 azithromycin 500 mg IVPB once over 1 hrs; dilute in 250mL of D5W or NS ordered. ke 12:57 cefTRIAXone 1 grams IVPB once over 30 mins; dilute in 50mL of NS or D5W ordered. ke 12:57 -Blood Culture (Adults Only), peripheral from different site, or from device/port/PICC ke etc. if present ordered. 12:57 Burring Machine Operator/Pulse Ox/q 15 min VS ordered. ke 12:57 IV Saline Lock ordered. ke 12:57 Oxygen at 4L/Min NC or Home dosage ordered. ke 12:57 Rhythm Strip to chart ordered. ke 12:57 Albuterol 5 mg Nebulizer once ordered. ke 12:57 Albuterol-Ipratropium 3 ml Inhalation once ordered. ke 12:57 Call Respiratory ordered. ke 12:58 Call Respiratory complete. ar3 12:58 B-Type Natiuretic Peptide Ordered. EDMS 12:58 Basic Metabolic Profile Ordered. EDMS 12:58 CBC with Diff Ordered. EDMS 12:58 Cardiac Injury Profile Ordered. EDMS 12:58 Troponin Ordered. EDMS 12:58 -Blood Culture (Adults Only), peripheral from different site, or from device/port/PICC ar3 etc. if present complete. 12:59 PT/INR Ordered. EDMS 12:59 -Blood Culture Ordered. EDMS 12:59 BED REQUEST+ADM ordered. EDMS 13:00 BLOOD CULTURES Ordered. EDMS 13:08 Financial registration complete. mm15 13:10 [facility] [place] Payment Agreement was scanned into [employer] and attached to record. mm15 14:17 Misc Trimmer Tailer Order ordered. ke 14:18 Misc Trimmer Tailer Order complete. lbd 14:22 B-Type Natiuretic Peptide Reviewed. ke 14:22 Basic Metabolic Profile Reviewed. ke 14:22 CBC with Diff Reviewed. ke 14:22 PT/INR Reviewed. ke 14:22 Cardiac Injury Profile Reviewed. ke 14:22 Troponin Reviewed. ke 14:24 Reading, outside exam Ordered. EDMS 14:48 Admission / Observation Status ordered. EDMS 14:48 CONSISTENT CARBOHYDRATES ordered. EDMS 14:49 SPUTUM CULTURE AND GRAM STAIN Ordered. EDMS 10/26 12:04 T-Sheet-- Draft Copy was scanned into [employer] and attached to record. gb 12:05 ECG/EKG was scanned into [employer] and attached to record. gb Administered Medications: 10/25 13:05 Drug: Albuterol 5 mg [albuterol sulfate 2.5 mg/0.5 mL solution for nebulization (1 mL)] sd7 Route: Nebulizer; 13:15 Follow up: Response: Nebulizer completed 13:05 Drug: Albuterol-Ipratropium 3 ml [ipratropium-albuterol 0.5 mg-3 mg(2.5 mg base)/3 mL nebulization soln (3 mL)] Route: Inhalation; 13:15 Follow up: Response: Nebulizer completed 13:21 Drug: cefTRIAXone 1 grams Route: IVPB; Infused Over: 30 mins; Site: right forearm; [facility] 14:11 Follow up: IV Status: Completed infusion; IV Intake: 50ml [facility] 14:11 Drug: azithromycin 500 mg [azithromycin 500 mg intravenous solution] Route: IVPB; cjh Infused Over: 1 hrs; Site: right forearm; 16:27 Follow up: IV Status: Completed infusion; IV Intake: 250ml [facility] Signatures: Dispatcher Med[employer] EDMS Saundra Weeks, Crutcher Helper Unit lbd Noble Knight, RN RN dwg Lyly Brand, Reg Reg gb Michele Sparrow, BRAKE OPERATOR SHEET METAL BRAKE OPERATOR SHEET METAL ke Radha Terry, ASSOCIATE SALES MANAGER ASSOCIATE SALES MANAGER ar3 Jenelle MagdalenoRN RN js13 Keysha Van RN RN [facility] [place] mm15 Micah Townsend, RN RN Kathryn Hernandez RT The chart was reviewed and I authenticate all verbal orders and agree with the evaluation and treatment provided.Attachments: 13:10 [facility] Payment Agreement mm15 10/26 12:04 T-Sheet-- Draft Copy gb 12:05 ECG/EKG gb Chart Complete MTDD
--- NOTE | 2016-10-27 18:15 | EDDOCDS ---
Physician Documentation [facility] Name: Nick Bonner Age: 76 yrs Sex: Male : 1940 Arrival Date: 10/25/2016 Time: 11:48 Bed 18 Private MD: NO PRIMARY PHYSICIAN, . Disposition: 10/25/16 14:25 Hospitalization ordered by Harshad Burden for Inpatient Admission. Preliminary diagnosis are Pneumonia, unspecified organism, Acute combined systolic (congestive) and diastolic (congestive) heart failure. - Bed requested for 4 [place]. - Status is Inpatient Admission. [id number] - Condition is Stable. - Problem is an acute exacerbation. - Symptoms are unchanged. Historical: - Allergies: no known allergies; - Home Meds: 1. Coumadin 5 mg Oral tab 1 tab once daily (Last dose: 10/24/2016 17:00) 2. metformin 500 mg Oral tab 1 tab 2 times per day (Last dose: 10/25/2016) 3. atenolol 50 mg Oral tab 1 tab 2 times per day (Last dose: 10/25/2016) 4. amlodipine 5 mg Oral tab 1 tab once daily (Last dose: 10/25/2016) 5. cyclobenzaprine 10 mg Oral tab 1 tab 3 times per day (Last dose: 10/25/2016) 6. Lipitor 40 mg Oral tab 1 tab once daily (Last dose: 10/24/2016) 7. lisinopril 40 mg Oral tab 1 tab once daily (Last dose: 10/25/2016) 8. Pacerone 200 mg oral tab 1 tab once daily (Last dose: 10/25/2016) 9. furosemide 40 mg Oral tab 1 tab once daily (Last dose: 10/25/2016) - PMHx: Atrial Fib; CAD; CHF; Hypercholesterolemia; Hypertension; Diabetes - NIDDM: controlled; - PSHx: Pacemaker insertion 2010; Right ankle repair, nerve repair; - Social history: Smoking status: Patient states was never smoker of tobacco. No barriers to communication noted, The patient speaks fluent Divehi. - Family history: Not pertinent. - : The pt / caregiver states he / she is on anticoagulants: coumadin. Home medication list is obtained from the patient. - Exposure Risk Screening:: None identified. Vital Signs: 10/25 11:51 BP 152 / 78; Pulse 70; Resp 18 S; Temp 97.9(T); Pulse Ox 94% on R/A; Weight 102.06 kg / gr2 225 lbs (R); Height 5 ft. 9 in. (175.26 cm) (R); Pain 3/10; 12:16 BP 148 / 73 (auto/); cjh 12:20 Pulse 70 MON; Pulse Ox 92% ; cjh 12:29 Pulse 68 MON; Pulse Ox 94% ; cjh 12:31 BP 147 / 81 (auto/); cjh 12:46 BP 160 / 75 (auto/); cjh 12:47 Pulse 68 MON; Pulse Ox 96% ; cjh 13:01 BP 140 / 67 (auto/); cjh 13:01 Pulse 68 MON; Pulse Ox 95% ; cjh 14:16 BP 146 / 70 (auto/); cjh 14:16 Pulse 68 MON; Pulse Ox 96% ; cjh 14:31 BP 137 / 68 (auto/); cjh 14:31 Pulse 68 MON; Pulse Ox 96% ; cjh 14:45 Pulse 68 MON; Pulse Ox 95% ; cjh 14:46 BP 139 / 63 (auto/); cjh 15:00 Pulse 68 MON; Pulse Ox 96% ; cjh 15:01 BP 145 / 72 (auto/); cjh 15:15 Pulse 68 MON; Pulse Ox 95% ; cjh 15:16 BP 143 / 61 (auto/); cjh 15:30 Pulse 68 MON; Pulse Ox 95% ; cjh 15:31 BP 139 / 61 (auto/); cjh 15:45 Pulse 68 MON; Pulse Ox 95% ; cjh 15:46 BP 152 / 72 (auto/); cjh 16:16 BP 154 / 80 (auto/); cjh 16:16 BP 154 / 80; Pulse 68 MON; Resp 18; Temp 98.5; Pulse Ox 93% ; Pain 0/10; cjh 11:51 Body Mass Index 33.23 (102.06 kg, 175.26 cm) gr2 MDM: 12:11 ECG WITH READING ER PHYS+CARDIAG ordered. EDMS 12:57 azithromycin 500 mg IVPB once over 1 hrs; dilute in 250mL of D5W or NS ordered. ke 12:57 cefTRIAXone 1 grams IVPB once over 30 mins; dilute in 50mL of NS or D5W ordered. ke 12:57 -Blood Culture (Adults Only), peripheral from different site, or from device/port/PICC ke etc. if present ordered. 12:57 Performing Arts Technicians/Pulse Ox/q 15 min VS ordered. ke 12:57 IV Saline Lock ordered. ke 12:57 Oxygen at 4L/Min NC or Home dosage ordered. ke 12:57 Rhythm Strip to chart ordered. ke 12:57 Albuterol 5 mg Nebulizer once ordered. ke 12:57 Albuterol-Ipratropium 3 ml Inhalation once ordered. ke 12:57 Call Respiratory ordered. ke 12:58 Call Respiratory complete. ar3 12:58 B-Type Natiuretic Peptide Ordered. EDMS 12:58 Basic Metabolic Profile Ordered. EDMS 12:58 CBC with Diff Ordered. EDMS 12:58 Cardiac Injury Profile Ordered. EDMS 12:58 Troponin Ordered. EDMS 12:58 -Blood Culture (Adults Only), peripheral from different site, or from device/port/PICC ar3 etc. if present complete. 12:59 PT/INR Ordered. EDMS 12:59 -Blood Culture Ordered. EDMS 12:59 BED REQUEST+ADM ordered. EDMS 13:00 BLOOD CULTURES Ordered. EDMS 13:08 Financial registration complete. mm15 13:10 [facility] [place] Payment Agreement was scanned into [employer] and attached to record. mm15 14:17 Misc Assistant Operator Order ordered. ke 14:18 Misc Assistant Operator Order complete. lbd 14:22 B-Type Natiuretic Peptide Reviewed. ke 14:22 Basic Metabolic Profile Reviewed. ke 14:22 CBC with Diff Reviewed. ke 14:22 PT/INR Reviewed. ke 14:22 Cardiac Injury Profile Reviewed. ke 14:22 Troponin Reviewed. ke 14:24 Reading, outside exam Ordered. EDMS 14:48 Admission / Observation Status ordered. EDMS 14:48 CONSISTENT CARBOHYDRATES ordered. EDMS 14:49 SPUTUM CULTURE AND GRAM STAIN Ordered. EDMS 10/26 12:04 T-Sheet-- Draft Copy was scanned into Wing[employer] and attached to record. gb 12:05 ECG/EKG was scanned into [employer] and attached to record. gb Administered Medications: 10/25 13:05 Drug: Albuterol 5 mg [albuterol sulfate 2.5 mg/0.5 mL solution for nebulization (1 mL)] sd7 Route: Nebulizer; 13:15 Follow up: Response: Nebulizer completed 13:05 Drug: Albuterol-Ipratropium 3 ml [ipratropium-albuterol 0.5 mg-3 mg(2.5 mg base)/3 mL nebulization soln (3 mL)] Route: Inhalation; 13:15 Follow up: Response: Nebulizer completed 13:21 Drug: cefTRIAXone 1 grams Route: IVPB; Infused Over: 30 mins; Site: right forearm; [facility] 14:11 Follow up: IV Status: Completed infusion; IV Intake: 50ml [facility] 14:11 Drug: azithromycin 500 mg [azithromycin 500 mg intravenous solution] Route: IVPB; cjh Infused Over: 1 hrs; Site: right forearm; 16:27 Follow up: IV Status: Completed infusion; IV Intake: 250ml [facility] Signatures: Dispatcher Med[employer] EDMS Saundra Weeks, Mesh Man Unit lbd Noble Knight, RN RN dwg Lyly Brand, Reg Reg gb Michele Sparrow, ARMED SECURITY OFFICER ARMED SECURITY OFFICER ke Radha Terry, STEEPLECHASE JOCKEY STEEPLECHASE JOCKEY ar3 Jenelle MagdalenoRN RN js13 Keysha Van RN RN [facility] [place] mm15 Micah Townsend, RN RN Kathryn Hernandez RT The chart was reviewed and I authenticate all verbal orders and agree with the evaluation and treatment provided.Attachments: 13:10 [facility] Payment Agreement mm15 10/26 12:04 T-Sheet-- Draft Copy gb 12:05 ECG/EKG gb Chart Complete MTDD
--- NOTE | 2016-10-27 18:16 | EDDOCDS ---
Nurse's Notes [facility] Name: Nick Bonner Age: 76 yrs Sex: Male : 1940 Arrival Date: 10/25/2016 Time: 11:48 Bed 18 Private MD: NO PRIMARY PHYSICIAN, . Diagnosis: Pneumonia, unspecified organism;Acute combined systolic (congestive) and diastolic (congestive) heart failure Presentation: 10/25 11:55 Presenting complaint: Patient states: Productive cough, difficulty breathing for 5 dwg days, worsening progressively. Adult Sepsis Screening: The patient does not have new or worsening altered mentation. Patient's respiratory rate is less than 22. Systolic blood pressure is greater than 100. Patient has a qSOFA score of 0- Negative Sepsis Screen. Suicide/Homicide risk assessment- the patient denies having any suicidal and/or homicidal ideations and does not present with any other emotional, behavioral or mental health complaints. Status: Patient is not a shared services manager or dependent. Transition of care: Patient was received from [facility]. Red Flag criteria, patient assessed and taken directly to a bed. 11:55 Acuity: INDIRA Level [facility] 11:55 Method Of Arrival: Walkin/Carried/Asstd [facility] Triage Assessment: 12:02 General: Appears in no apparent distress. Pain: Denies pain. [facility] Historical: - Allergies: no known allergies; - Home Meds: 1. Coumadin 5 mg Oral tab 1 tab once daily (Last dose: 10/24/2016 17:00) 2. metformin 500 mg Oral tab 1 tab 2 times per day (Last dose: 10/25/2016) 3. atenolol 50 mg Oral tab 1 tab 2 times per day (Last dose: 10/25/2016) 4. amlodipine 5 mg Oral tab 1 tab once daily (Last dose: 10/25/2016) 5. cyclobenzaprine 10 mg Oral tab 1 tab 3 times per day (Last dose: 10/25/2016) 6. Lipitor 40 mg Oral tab 1 tab once daily (Last dose: 10/24/2016) 7. lisinopril 40 mg Oral tab 1 tab once daily (Last dose: 10/25/2016) 8. Pacerone 200 mg oral tab 1 tab once daily (Last dose: 10/25/2016) 9. furosemide 40 mg Oral tab 1 tab once daily (Last dose: 10/25/2016) - PMHx: Atrial Fib; CAD; CHF; Hypercholesterolemia; Hypertension; Diabetes - NIDDM: controlled; - PSHx: Pacemaker insertion 2010; Right ankle repair, nerve repair; - Social history: Smoking status: Patient states was never smoker of tobacco. No barriers to communication noted, The patient speaks fluent Portuguese. - Family history: Not pertinent. - : The pt / caregiver states he / she is on anticoagulants: coumadin. Home medication list is obtained from the patient. - Exposure Risk Screening:: None identified. Screenin:20 Screening information is obtained from the patient. Fall risk: No risks identified. [facility] Assistance ADL's: requires no assistance with activities of daily living. Abuse/DV Screen: The patient / caregiver reports he/she is: not in a situation that causes fear, pain or injury. Nutritional screening: No deficits noted. Advance Directives: There is no active DNR order. home support is adequate. Assessment: 12:30 General: Appears in no apparent distress, Behavior is appropriate for age, cooperative. [facility] Pain: Denies pain. Neurological: Level of Consciousness is awake, alert, Oriented to person, place, time. Cardiovascular: Chest pain is denied. Respiratory: Airway is patent Respiratory effort is even, labored, Respiratory pattern is regular, symmetrical, Breath sounds are coarse bilaterally. GI: No deficits noted. : Urine is clear. Derm: Skin is pink, warm & dry. Musculoskeletal: Range of motion intact in all extremities. 13:21 General: no new problems or complaints, resting quietly, respiratory treatment in [facility] process, denies additional needs. 14:13 General: resting quietly, IV"s infusing without difficulty, awaiting dispo, no new [facility] problems or complaints. 15:30 General: IV medication infusing without difficulty, denies further needs at present. [facility] 16:29 General: Appears in no apparent distress, comfortable, Behavior is appropriate for age, [facility] cooperative, denies pain, visitor at bedside, no new problems or complaints, awaiting admission. 16:44 General: no changes from previous, transport to [facility] [place] [facility] Vital Signs: 11:51 BP 152 / 78; Pulse 70; Resp 18 S; Temp 97.9(T); Pulse Ox 94% on R/A; Weight 102.06 kg gr2 (R); Height 5 ft. 9 in. (175.26 cm) (R); Pain 3/10; 12:16 BP 148 / 73 (auto/); cjh 12:20 Pulse 70 MON; Pulse Ox 92% ; cjh 12:29 Pulse 68 MON; Pulse Ox 94% ; cjh 12:31 BP 147 / 81 (auto/); cjh 12:46 BP 160 / 75 (auto/); cjh 12:47 Pulse 68 MON; Pulse Ox 96% ; cjh 13:01 BP 140 / 67 (auto/); cjh 13:01 Pulse 68 MON; Pulse Ox 95% ; cjh 14:16 BP 146 / 70 (auto/); cjh 14:16 Pulse 68 MON; Pulse Ox 96% ; cjh 14:31 BP 137 / 68 (auto/); cjh 14:31 Pulse 68 MON; Pulse Ox 96% ; cjh 14:45 Pulse 68 MON; Pulse Ox 95% ; cjh 14:46 BP 139 / 63 (auto/); cjh 15:00 Pulse 68 MON; Pulse Ox 96% ; cjh 15:01 BP 145 / 72 (auto/); cjh 15:15 Pulse 68 MON; Pulse Ox 95% ; cjh 15:16 BP 143 / 61 (auto/); cjh 15:30 Pulse 68 MON; Pulse Ox 95% ; cjh 15:31 BP 139 / 61 (auto/); cjh 15:45 Pulse 68 MON; Pulse Ox 95% ; cjh 15:46 BP 152 / 72 (auto/); cjh 16:16 BP 154 / 80 (auto/); cjh 16:16 BP 154 / 80; Pulse 68 MON; Resp 18; Temp 98.5; Pulse Ox 93% ; Pain 0/10; cjh 11:51 Body Mass Index 33.23 (102.06 kg, 175.26 cm) gr2 Vitals: 11:51 Log In Time: October 25, 2016 at 11:51. gr2 ED Course: 11:51 Patient visited by Toña Marrufo. gr2 11:51 NO PRIMARY PHYSICIAN, . is Private Physician. gr2 11:51 Patient moved to Waiting gr2 11:53 Patient visited by Toña Marrufo. gr2 11:53 Patient moved to Pre RCE gr2 11:57 Triage Initiated dwg 12:03 Patient moved to 18 dwg 12:18 EKG done. (by ED staff). Reviewed by Brandon Duval MD. ar3 12:20 Patient visited by Radha Terry PCA. ar3 12:20 The patient / caregiver is instructed regarding the plan of care and ED course. Patient saurabh has correct armband on for positive identification. Placed in gown. Bed in low position. Call light in reach. Side rails up X2. monitor technician on. Pulse ox on. Cardiac monitoring not applicable on this patient. 12:20 Inserted saline lock: 20 gauge in right forearm and blood collected. The patient raul tolerated the procedure well. Labs drawn. (by ED staff). Sent per order to lab. Labs/Blood culture drawn. 12:45 [facility] Sparrow FNP [facility] ke 12:45 Patient visited by Michele Sparrow FNP. ke 12:45 Patient visited by Michele Sparrow FNP. ke 12:59 PT/INR Sent. [facility] 13:00 -Blood Culture Sent. [facility] 13:00 B-Type Natiuretic Peptide Sent. [facility] 13:00 Basic Metabolic Profile Sent. [facility] 13:00 CBC with Diff Sent. [facility] 13:00 Cardiac Injury Profile Sent. [facility] 13:[address] [facility] 13:10 [facility] Payment Agreement was scanned into [employer] and attached to record. mm15 13:17 Patient visited by Michele Sparrow FNP. ke 13:54 Patient visited by Michele Sparrow FNP. ke 14:21 Patient visited by Michele Sparrow FNP. ke 14:25 Harshad Burden is Hospitalizing Provider. ke 16:16 No procedures done that require assistance. [facility] 10/26 12:04 T-Sheet-- Draft Copy was scanned into [employer] and attached to record. gb 12:05 ECG/EKG was scanned into [employer] and attached to record. gb Administered Medications: 10/25 13:05 Drug: Albuterol 5 mg [albuterol sulfate 2.5 mg/0.5 mL solution for nebulization (1 mL)] Route: Nebulizer; 13:15 Follow up: Response: Nebulizer completed sd 13:05 Drug: Albuterol-Ipratropium 3 ml [ipratropium-albuterol 0.5 mg-3 mg(2.5 mg base)/3 mL nebulization soln (3 mL)] Route: Inhalation; 13:15 Follow up: Response: Nebulizer completed 13:21 Drug: cefTRIAXone 1 grams Route: IVPB; Infused Over: 30 mins; Site: right forearm; [facility] 14:11 Follow up: IV Status: Completed infusion; IV Intake: 50ml [facility] 14:11 Drug: azithromycin 500 mg [azithromycin 500 mg intravenous solution] Route: IVPB; cjh Infused Over: 1 hrs; Site: right forearm; 16:27 Follow up: IV Status: Completed infusion; IV Intake: 250ml [facility] Intake: 14:11 IV: 50.00ml; Total: 50.00ml. [facility] 16:27 IV: 250.00ml; Total: 300.00ml. [facility] RT: 13:07 Initial Med Neb Given as ordered Patient was instructed and evaluated on procedure 7 Patient tolerated procedure well without adverse effect. Respiratory: Airway is patent Respiratory effort is unlabored, Breath sounds with wheezes bilaterally. at expiration. Order Results: Lab Order: B-Type Natiuretic Peptide; SPEC'M 10/25/16 12:52 Test: BRAIN NATRIURETIC PEPTIDE; Value: 186; Range: <100; Abnormal: Above high normal; Units: PG/ML; Status: F Lab Order: Basic Metabolic Profile; SPEC'M 10/25/16 12:52 Test: GLUCOSE, FASTING; Value: 130; Range: 83-110; Abnormal: Above high normal; Units: MG/DL; Status: F Test: BLOOD UREA NITROGEN; Value: 16; Range: 7-18; Units: MG/DL; Status: F Test: CREATININE FOR GFR; Value: 1.06; Range: 0.70-1.30; Units: MG/DL; Status: F Test: GLOMERULAR FILTRATION RATE; Value: > 60.0; Range: >42; Status: F Test: SODIUM LEVEL; Value: 138; Range: 136-145; Units: MEQ/L; Status: F Test: POTASSIUM SERUM; Value: 3.6; Range: 3.5-5.1; Units: MEQ/L; Status: F Test: CHLORIDE LEVEL; Value: 100; Range: 98-107; Units: MEQ/L; Status: F Test: CARBON DIOXIDE LEVEL; Value: 29; Range: 21-32; Units: MEQ/L; Status: F Test: ANION GAP; Value: 9; Range: 8-16; Units: MEQ/L; Status: F Test: CALCIUM LEVEL; Value: 8.2; Range: 8.8-10.2; Abnormal: Below low normal; Units: MG/DL; Status: F Test Note: ; Units are mL/min/1.73 m2 Chronic Kidney Disease Staging per NKF: Stage I & II GFR >=60 Normal to Mildly Decreased Stage III GFR 30-59 Moderately Decreased Stage IV GFR 15-29 Severely Decreased Stage V GFR <15 Very Little GFR Left ESRD GFR <15 on CATERPILLAR TRACTOR OPERATOR Lab Order: CBC with Diff; SPEC'M 10/25/16 12:52 Test: WHITE BLOOD COUNT; Value: 4.3; Range: 4.0-10.0; Units: K/mm3; Status: F Test: RED BLOOD COUNT; Value: 4.00; Range: 4.30-6.10; Abnormal: Below low normal; Units: M/mm3; Status: F Test: HEMOGLOBIN; Value: 12.4; Range: 14.0-18.0; Abnormal: Below low normal; Units: g/dl; Status: F Test: HEMATOCRIT; Value: 36.0; Range: 42.0-52.0; Abnormal: Below low normal; Units: %; Status: F Test: MEAN CORPUSCULAR VOLUME; Value: 89.9; Range: 80.0-96.0; Units: fl; Status: F Test: MEAN CORPUSCULAR HEMOGLOBIN; Value: 31.0; Range: 27.0-33.0; Units: pg; Status: F Test: MEAN CORPUSCULAR HGB CONC; Value: 34.5; Range: 32.0-36.5; Units: g/dl; Status: F Test: RED CELL DISTRIBUTION WIDTH; Value: 13.3; Range: 11.5-14.5; Units: %; Status: F Test: PLATELET COUNT, AUTOMATED; Value: 181; Range: 150-450; Units: k/mm3; Status: F Test: NEUTROPHILS %; Value: 70.3; Range: 36.0-66.0; Abnormal: Above high normal; Units: %; Status: F Test: LYMPH %; Value: 17.5; Range: 24.0-44.0; Abnormal: Below low normal; Units: %; Status: F Test: MONO %; Value: 6.1; Range: 0.0-5.0; Abnormal: Above high normal; Units: %; Status: F Test: EOS %; Value: 1.7; Range: 0.0-3.0; Units: %; Status: F Test: BASO %; Value: 0.4; Range: 0.0-1.0; Units: %; Status: F Test: LARGE UNSTAINED CELL %; Value: 4.1; Range: 0.0-4.0; Abnormal: Above high normal; Units: %; Status: F Test: NEUTROPHILS #; Value: 3.1; Range: 1.8-7.7; Units: K/mm3; Status: F Test: LYMPH #; Value: 0.8; Range: 1.5-4.5; Abnormal: Below low normal; Units: K/mm3; Status: F Test: MONO #; Value: 0.3; Range: 0.0-0.8; Units: K/mm3; Status: F Test: EOS #; Value: 0.1; Range: 0.0-0.50; Units: K/mm3; Status: F Test: BASO #; Value: 0.0; Range: 0.0-0.2; Units: K/mm3; Status: F Test: LARGE UNSTAINED CELL #; Value: 0.2; Range: 0.0-0.4; Units: K/mm3; Status: F Lab Order: Cardiac Injury Profile; SPEC'M 10/25/16 12:52 Test: CPK CREATINE PHOSPHOKINASE; Value: 83; Range: 39-308; Units: U/L; Status: F Test: CK-MB VALUE MASS; Value: 1.2; Range: 0.0-3.6; Units: NG/ML; Status: F Test: MB/CK RELATIVE INDEX; Value: 1.44; Range: < OR =4; Status: F Test Note: ; DIAGNOSIS CRITERIA MMB ng/ml Relative Index (RI) NON-AMI < or = 5 N/A ME[place]ONE > 5 < or = 4 AMI > 5 > 4 Lab Order: Troponin; SPEC'M 10/25/16 12:52 Test: TROPONIN I; Value: < 0.02; Range: < 0.10; Units: NG/ML; Status: F Test Note: ; Troponin I Reference Interval for Siemens [place] LOCI: 99th Percentile= 0.00-0.045 ng/ml Risk Stratification: <= 0.10 ng/ml Decreased Risk for Adverse Clinical Events. 0.10-1.50 ng/ml Increased Risk for Adverse Clinical Events. Evaluation of additional criterion and/or repeat testing in 2-6 hours is suggested to rule out myocardial damage. >= 1.50 ng/ml Indicative of Myocardial Injury. Lab Order: PT/INR; SPEC'M 10/25/16 12:52 Test: PROTHROMBIN TIME; Value: 28.2; Range: 12.3-14.5; Abnormal: Above high normal; Units: SECONDS; Status: F Test: INR; Value: 2.64; Status: F Test Note: ; THERAPUTIC HUMAN INR VALUES INDICATIONS NORMAL RANGES PROPHYLAXIS/TREATMENT OF: VENOUS THROMBOSIS 2.0-3.0 PULMONARY EMBOLISM 2.0-3.0 PREVENTION OF SYSTEMIC EMBOLISM FROM: TISSUE HEART VALVES 2.0-3.0 ACUTE MYOCARDIAL INFARCTION 2.0-3.0 VALVULAR HEART DISEASE 2.0-3.0 ATRIAL FIBRILLATION 2.0-3.0 MECHANICAL VALVES(HIGH RISK) 2.5-3.5 RECURRENT MYOCARDIAL INFARCTION 2.5-3.5 Outcome: 14:25 Decision to Hospitalize by Provider. ke 16:42 Discharge Assessment: Patient awake, alert and oriented x 3. No cognitive and/or [facility] functional deficits noted. Patient verbalized understanding of disposition instructions. patient administered narcotics - no. The following High Risk Discharge criteria are identified: None. Admitted to Med/Surg via stretcher, with chart. Condition: good Condition: stable Condition: improved. No special radiology studies were completed. Property :Personal belongings accompany Pt. 17:14 Patient left the ED. [id number] Signatures: Noble Knight RN RN Lyly Hong, Reg Reg gb Michele Sparrow, SPECIAL MACHINE STITCHER SPECIAL MACHINE STITCHER ke Radha Terry, CAR WHACKER CAR WHACKER ar3 Jenelle Magdaleno RN RN [id number] Keysha Van RN RN [facility] Toña Marrufo gr2 [place] mm15 Kathryn Park,RT RT sd7 Chart Complete MTDD
[2016-10-27 20:35] VITALS: BP 131/73
[2016-10-27] MEDS: ATORVASTATIN 20 MG TAB PO SCH (20:44)
[2016-10-27] MEDS: LATANOPROST 0.005% OPHTH SOLN 2.5 ML OU SCH (20:47)
[2016-10-28] MEDS: IPRATROPIUM 0.5MG/ALBUTEROL 2.5MG INH SOL UD 3ML (DUONEB)(J7620) NEB SCH ×2 (01:30→07:45)
[2016-10-28 06:25] VITALS: BP 137/78
[2016-10-28 07:05] LABS: BASO % 1.1 % (0.0-1.0); EOS # 0.2 K/mm3 (0.0-0.50); EOS % 4.6 % (0.0-3.0); LARGE UNSTAINED CELL # 0.2 K/mm3 (0.0-0.4); LYMPH # 1.1 K/mm3 (1.5-4.5); LYMPH % 30.3 % (24.0-44.0); MEAN CORPUSCULAR HEMOGLOBIN 30.4 pg (27.0-33.0); MEAN CORPUSCULAR HGB CONC 33.5 g/dl (32.0-36.5); MEAN CORPUSCULAR VOLUME 90.7 fl (80.0-96.0); MONO # 0.2 K/mm3 (0.0-0.8); MONO % 6.4 % (0.0-5.0); NEUTROPHILS # 1.9 K/mm3 (1.8-7.7); NEUTROPHILS % 52.6 % (36.0-66.0); PLATELET COUNT, AUTOMATED 199 k/mm3 (150-450); RED CELL DISTRIBUTION WIDTH 13.3 % (11.5-14.5); WHITE BLOOD COUNT 3.7 K/mm3 (4.0-10.0)
[2016-10-28 07:07] LABS: INR 2.72
[2016-10-28 07:20] LABS: ALBUMIN 3.3 GM/DL (3.2-5.2); ALBUMIN/GLOBULIN RATIO 0.83 (1.00-1.93); ALKALINE PHOSPHATASE 95 U/L (45-117); ALT/SGPT 34 U/L (12-78); ANION GAP 7 MEQ/L (8-16); AST/SGOT 18 U/L (15-37); BILIRUBIN,TOTAL 0.4 MG/DL (0.2-1.0); BLOOD UREA NITROGEN 17 MG/DL (7-18); CALCIUM LEVEL 8.3 MG/DL (8.8-10.2); CARBON DIOXIDE LEVEL 31 MEQ/L (21-32); CHLORIDE LEVEL 104 MEQ/L (98-107); CREATININE FOR GFR 0.95 MG/DL (0.70-1.30); GLOMERULAR FILTRATION RATE > 60.0 (>42); GLUCOSE, FASTING 141 MG/DL (83-110); MAGNESIUM LEVEL 2.6 MG/DL (1.8-2.4); POTASSIUM SERUM 3.8 MEQ/L (3.5-5.1); SODIUM LEVEL 142 MEQ/L (136-145); TOTAL PROTEIN 7.3 GM/DL (6.4-8.2)
[2016-10-28 08:35] VITALS: BP 166/81
[2016-10-28] MEDS: BACLOFEN 10 MG TAB PO SCH (08:35)
[2016-10-28] MEDS: LISINOPRIL 40 MG TAB PO SCH (08:35)
[2016-10-28] MEDS: ATENOLOL 50 MG TAB PO SCH (08:35)
[2016-10-28] MEDS: AMIODARONE 200 MG TAB (PACERONE) PO SCH (08:35)
[2016-10-28] MEDS: HumaLOG INSULIN (NovoLOG) PER UNIT SC SCH (08:35)
[2016-10-28] MEDS: amLODIPine 5 MG TAB PO SCH (08:36)
[2016-10-28] MEDS: LOSARTAN 50 MG TAB PO SCH (08:36)
[2016-10-28] MEDS: POTASSIUM CHLORIDE 10 MEQ SR TABLET PO SCH (08:36)
[2016-10-28] MEDS: FUROSEMIDE 40 MG/4 ML VIAL (J1940) IV SCH (08:37)
[2016-10-28] MEDS: OLOPATADINE 0.1% OPHTH SOL 5ML(PATANOL) OU SCH (08:37)
--- NOTE | 2016-10-28 14:07 | DSES ---
DATE OF ADMISSION: 10/27/2016 DATE OF DISCHARGE: 10/28/2016 PRIMARY CARE PROVIDER: Dr. Liriano CONSULTATIONS: None. PROCEDURES PERFORMED: None. COMPLICATIONS: None. ADMISSION/DISCHARGE DIAGNOSES: 1. Progressive shortness of breath related to pneumonia. 2. History of atrial fibrillation, rate controlled, on Pacerone and anticoagulated with Coumadin. 3. History of congestive heart failure (CHF), stable. 4. History of hypertension. 5. Hyperlipidemia. 6. Diabetes. 7. Coronary artery disease. BRIEF HOSPITAL COURSE: Mr. Bonner is a pleasant 76-year-old male who presented to the emergency department with acute onset shortness of breath, worsening over 24 hours, but after further history apparently it had been progressively getting worse for five days prior to presenting to the emergency department. He did have a productive cough with green sputum. The chest x-ray at urgent care did suggest a right middle lobe pneumonia. While in the emergency department, he was given a dose of Rocephin, Zithromax, and nebulizer. The hospitalist was called requesting for inpatient treatment. He was requiring between 2-3 liters of oxygen per nasal cannula which is new for him. His labs were relatively unremarkable. He did have a BNP of 186, but did not appear to be grossly volume overloaded. At any rate, he was admitted and continued on his medications. He was given pulmonary toilette, nebulizers, Rocephin and Zithromax. He was gradually titrated down to 1 liter per nasal cannula. On the day of discharge, he was felt to be relatively close to his baseline, but still requiring some intermittent oxygen supplementation. Will go ahead and discharge him home today with antibiotics and oxygen supplementation as needed. He can followup with Dr. Liriano within the next week or so. PHYSICAL EXAMINATION: Temperature is 96.7, pulse 70, respiratory rate 16, blood pressure (BP) 137/78, and SPO2 92% on 1 liter. He does desaturate to less than 86% on room air while at rest. White count 13.7, hemoglobin 11.9, platelets 199,000. Sodium 142, potassium 3.8, chloride 104, bicarb 31, anion gap 7, BUN 17, creatinine 0.95, glucose 141, magnesium 2.6, albumin is 3.3, INR 2.72. HEENT: Unremarkable. Lungs: Diminished bibasilar breath sounds with occasional rhonchi on the right, clears with cough. Heart regular rate and rhythm. Abdomen: Soft. Extremities: No edema. No calf tenderness. DISCHARGE CONDITION: Good. DISPOSITION: Discharge to home with supplemental oxygen. DISCHARGE MEDICATIONS: - Augmentin 875 mg twice a day - amiodarone 200 mg daily - Norvasc 5 mg daily - atenolol 50 mg twice a day - Lipitor 40 mg at bedtime - baclofen 10 mg twice a day - Lasix 40 mg daily - lisinopril 40 mg daily - losartan 100 mg daily - metformin 500 mg twice a day - Patanol eye drops 1 drop each eye twice a day - Travatan Z 1 drop each eye at bedtime - vitamin D 50,000 units monthly - Coumadin, 2.5 mg three times week and 5 mg four times weekly on alternating days DISCHARGE INSTRUCTIONS: Discharge to home. Follow up with Dr. Liriano in a week. Activity as tolerated and regular diet. He was set up with supplemental home oxygen which can be tapered off by Dr. Liriano when she sees him on followup. Finish his antibiotics and continue with his prescription medications. Consistent carb diet. Activity as tolerated. Return to the emergency department if symptoms should worsen or progress. He voices understanding.
== END 2016-10-28 11:35 | disposition home or self-care (01) | DRG 193 ==
LOC: M ED 11:48 → M ED INP 14:39 → M MSPAV 17:15 → OBSVTOIN 10-27 10:02
PROVIDERS: ADMIT Internal Medicine; ATTEND Hospitalist
DX: J18.9 Pneumonia, unspecified organism (principal); R06.02 Shortness of breath; I50.43 Acute on chronic combined systolic (congestive) and diastolic (congestive) heart failure; I10 Essential (primary) hypertension; E11.9 Type 2 diabetes mellitus without complications; E87.6 Hypokalemia; I25.10 Atherosclerotic heart disease of native coronary artery without angina pectoris; E78.5 Hyperlipidemia, unspecified; I48.91 Unspecified atrial fibrillation; Z79.01 Long term (current) use of anticoagulants; Z79.899 Other long term (current) drug therapy; Z95.0 Presence of cardiac pacemaker; Z79.84 Long term (current) use of oral hypoglycemic drugs

== ENCOUNTER → 2016-10-25 | Outpatient (REF) | payer MEDICARE ==
[~2016-10-25] MED LIST changes: +AMIO20TA PO; +AMLO5TAB2 PO; +ATEN50TA2 PO; +ATOR40TA PO; +AUGM875T27 PO; +BACL10TA2 PO; +DRIS50002 PO; +FURO40TA2 PO; +LISI40TAB PO; +LOSA100T36 PO; +METF-699 PO; +OLOP1OPD OU; +TRAV04OPD OU; +WARF-18 PO; +WARF-23 PO
[2016-10-25 12:21] LABS: ANION GAP 10 MEQ/L (8-16); BLOOD UREA NITROGEN 16 MG/DL (7-18); CALCIUM LEVEL 8.6 MG/DL (8.8-10.2); CARBON DIOXIDE LEVEL 30 MEQ/L (21-32); CHLORIDE LEVEL 99 MEQ/L (98-107); CREATININE FOR GFR 1.04 MG/DL (0.70-1.30); GLOMERULAR FILTRATION RATE > 60.0 (>42); GLUCOSE, FASTING 126 MG/DL (83-110); POTASSIUM SERUM 3.8 MEQ/L (3.5-5.1); SODIUM LEVEL 139 MEQ/L (136-145)
[2016-10-25 12:58] LABS: BASO % 0.4 % (0.0-1.0); EOS # 0.1 K/mm3 (0.0-0.50); EOS % 1.8 % (0.0-3.0); LARGE UNSTAINED CELL # 0.2 K/mm3 (0.0-0.4); LARGE UNSTAINED CELL % 4.2 % (0.0-4.0); LYMPH % 18.2 % (24.0-44.0); MEAN CORPUSCULAR HEMOGLOBIN 31.1 pg (27.0-33.0); MEAN CORPUSCULAR HGB CONC 34.5 g/dl (32.0-36.5); MONO # 0.4 K/mm3 (0.0-0.8); MONO % 6.5 % (0.0-5.0); NEUTROPHILS # 3.7 K/mm3 (1.8-7.7); NEUTROPHILS % 68.9 % (36.0-66.0); PLATELET COUNT, AUTOMATED 205 k/mm3 (150-450); RED CELL DISTRIBUTION WIDTH 13.3 % (11.5-14.5); WHITE BLOOD COUNT 5.4 K/mm3 (4.0-10.0)
== END ==
LOC: M LAB REF 12:02
PROVIDERS: ATTEND Physician Assistant
DX: R06.02 Shortness of breath (principal)

== ENCOUNTER → 2016-10-31 | Outpatient (CLI) | payer MEDICARE ==
[~2016-10-31] MED LIST changes: +AMIO20TA PO; +AMLO5TAB2 PO; +ATEN50TA2 PO; +ATOR40TA PO; +AUGM875T27 PO; +BACL10TA2 PO; +DRIS50002 PO; +FURO40TA2 PO; +LISI40TAB PO; +LOSA100T36 PO; +METF-699 PO; +OLOP1OPD OU; +TRAV04OPD OU; +WARF-18 PO; +WARF-23 PO
[2016-10-31 07:48] LABS: INR 2.4
== END ==
LOC: M LAB 06:32
PROVIDERS: ATTEND Hospitalist
DX: Z79.01 Long term (current) use of anticoagulants (principal)

== ENCOUNTER → 2016-12-14 | Outpatient (CLI) | payer MEDICARE ==
[2016-12-14 06:54] LABS: INR 1.66
== END ==
LOC: M LAB 06:17
PROVIDERS: ATTEND Physician Assistant
DX: I48.0 Paroxysmal atrial fibrillation (principal)

== ENCOUNTER → 2016-12-22 | Outpatient (CLI) | payer MEDICARE ==
[2016-12-22 08:57] LABS: MEAN CORPUSCULAR HEMOGLOBIN 30.9 pg (27.0-33.0); MEAN CORPUSCULAR HGB CONC 32.9 g/dl (32.0-36.5); MEAN CORPUSCULAR VOLUME 93.7 fl (80.0-96.0); RED CELL DISTRIBUTION WIDTH 14.6 % (11.5-14.5); WHITE BLOOD COUNT 6.1 K/mm3 (4.0-10.0)
[2016-12-22 09:06] LABS: INR 2.4
[2016-12-22 09:26] LABS: ALBUMIN 3.8 GM/DL (3.2-5.2); ALBUMIN/GLOBULIN RATIO 1.12 (1.00-1.93); ALKALINE PHOSPHATASE 99 U/L (45-117); ALT/SGPT 30 U/L (12-78); ANION GAP 7 MEQ/L (8-16); AST/SGOT 16 U/L (15-37); BILIRUBIN,TOTAL 0.5 MG/DL (0.2-1.0); BLOOD UREA NITROGEN 15 MG/DL (7-18); CALCIUM LEVEL 8.4 MG/DL (8.8-10.2); CARBON DIOXIDE LEVEL 31 MEQ/L (21-32); CHLORIDE LEVEL 102 MEQ/L (98-107); CREATININE FOR GFR 1.04 MG/DL (0.70-1.30); GLOMERULAR FILTRATION RATE > 60.0 (>42); GLUCOSE, FASTING 166 MG/DL (83-110); MAGNESIUM LEVEL 2.3 MG/DL (1.8-2.4); POTASSIUM SERUM 4.1 MEQ/L (3.5-5.1); SODIUM LEVEL 140 MEQ/L (136-145); TOTAL PROTEIN 7.2 GM/DL (6.4-8.2)
--- NOTE | 2016-12-22 09:29 | REP ---
PA and lateral chest: Comparison is 06/23/2016. Lung miller are clear. Cardiac size is normal. The ruthy, mediastinum, bony thorax are unremarkable and unchanged. A dual-chamber pacemaker is again identified. Impression: Essentially negative chest. No interval change. Dual-chamber pacemaker is again identified. Signed by Noble Salgado MD 12/22/2016 09:21 A
== END ==
LOC: M LAB 08:34
PROVIDERS: ATTEND Physician Assistant
DX: I50.32 Chronic diastolic (congestive) heart failure (principal)

== ENCOUNTER → 2017-01-19 | Outpatient (CLI) | payer MEDICARE ==
[2017-01-19 08:15] LABS: INR 3.27
== END ==
LOC: M LAB 07:36
PROVIDERS: ATTEND Physician Assistant
DX: I48.0 Paroxysmal atrial fibrillation (principal); Z51.81 Encounter for therapeutic drug level monitoring; Z79.01 Long term (current) use of anticoagulants

== ENCOUNTER → 2017-01-31 | Outpatient (CLI) | payer MEDICARE ==
[2017-01-31 09:31] LABS: INR 2.73
== END ==
LOC: M LAB 08:44
PROVIDERS: ATTEND Physician Assistant
DX: I48.0 Paroxysmal atrial fibrillation (principal)

== ENCOUNTER → 2017-02-14 | Outpatient (CLI) | payer MEDICARE ==
[2017-02-14 07:31] LABS: BASO % 0.5 % (0.0-1.0); EOS # 0.1 K/mm3 (0.0-0.50); LARGE UNSTAINED CELL # 0.2 K/mm3 (0.0-0.4); LARGE UNSTAINED CELL % 3.5 % (0.0-4.0); LYMPH # 1.5 K/mm3 (1.5-4.5); LYMPH % 23.7 % (24.0-44.0); MEAN CORPUSCULAR HEMOGLOBIN 32.3 pg (27.0-33.0); MEAN CORPUSCULAR HGB CONC 33.9 g/dl (32.0-36.5); MEAN CORPUSCULAR VOLUME 95.2 fl (80.0-96.0); MONO # 0.4 K/mm3 (0.0-0.8); MONO % 6.8 % (0.0-5.0); NEUTROPHILS % 63.6 % (36.0-66.0); PLATELET COUNT, AUTOMATED 264 k/mm3 (150-450); RED CELL DISTRIBUTION WIDTH 13.4 % (11.5-14.5); WHITE BLOOD COUNT 6.3 K/mm3 (4.0-10.0)
[2017-02-14 07:43] LABS: ALBUMIN 3.7 GM/DL (3.2-5.2); ALBUMIN/GLOBULIN RATIO 1.16 (1.00-1.93); ALKALINE PHOSPHATASE 79 U/L (45-117); ALT/SGPT 25 U/L (12-78); ANION GAP 7 MEQ/L (8-16); AST/SGOT 11 U/L (15-37); BILIRUBIN,TOTAL 0.5 MG/DL (0.2-1.0); BLOOD UREA NITROGEN 22 MG/DL (7-18); CALCIUM LEVEL 8.4 MG/DL (8.8-10.2); CARBON DIOXIDE LEVEL 31 MEQ/L (21-32); CHLORIDE LEVEL 103 MEQ/L (98-107); CHOLESTEROL LEVEL 143 MG/DL (<200); CREATININE FOR GFR 1.06 MG/DL (0.70-1.30); GLOMERULAR FILTRATION RATE > 60.0 (>42); GLUCOSE, FASTING 157 MG/DL (83-110); POTASSIUM SERUM 4.2 MEQ/L (3.5-5.1); SODIUM LEVEL 141 MEQ/L (136-145); TOTAL PROTEIN 6.9 GM/DL (6.4-8.2); TRIGLYCERIDES LEVEL 170 MG/DL (<150)
== END ==
LOC: M LAB 06:47
PROVIDERS: ATTEND Family Medicine
DX: E11.65 Type 2 diabetes mellitus with hyperglycemia (principal)

== ENCOUNTER → 2017-02-28 | Outpatient (CLI) | payer MEDICARE ==
[2017-02-28 11:13] LABS: INR 2.19
== END ==
LOC: M LAB 10:30
PROVIDERS: ATTEND Nurse Practitioner Family
DX: I48.0 Paroxysmal atrial fibrillation (principal)

== ENCOUNTER → 2017-03-30 | Outpatient (CLI) | payer MEDICARE ==
[2017-03-30 07:14] LABS: INR 2.08
== END ==
LOC: M LAB 06:50
PROVIDERS: ATTEND Nurse Practitioner Family
DX: I48.0 Paroxysmal atrial fibrillation (principal)

== ENCOUNTER → 2017-04-27 | Outpatient (CLI) | payer MEDICARE ==
[~2017-04-27] MED LIST changes: +AMIO200T PO; -AMIO20TA PO; -ATOR40TA PO; +ATOR40TA75 PO; -AUGM875T27 PO; +AUGM875T28 PO; +IRON18TA2 PO
[2017-04-27 07:50] LABS: INR 2.78
== END ==
LOC: M LAB 07:03
PROVIDERS: ATTEND Physician Assistant
DX: I48.0 Paroxysmal atrial fibrillation (principal)

== ENCOUNTER → 2017-05-04 | Outpatient (CLI) | payer MEDICARE ==
[2017-05-04 09:20] LABS: BASO % 0.6 % (0.0-1.0); EOS # 0.2 K/mm3 (0.0-0.50); LARGE UNSTAINED CELL # 0.2 K/mm3 (0.0-0.4); LARGE UNSTAINED CELL % 2.1 % (0.0-4.0); LYMPH # 1.5 K/mm3 (1.5-4.5); LYMPH % 17.2 % (24.0-44.0); MEAN CORPUSCULAR HEMOGLOBIN 31.4 pg (27.0-33.0); MEAN CORPUSCULAR HGB CONC 34.2 g/dl (32.0-36.5); MEAN CORPUSCULAR VOLUME 91.7 fl (80.0-96.0); MONO # 0.6 K/mm3 (0.0-0.8); MONO % 6.3 % (0.0-5.0); NEUTROPHILS # 6.3 K/mm3 (1.8-7.7); NEUTROPHILS % 71.8 % (36.0-66.0); PLATELET COUNT, AUTOMATED 309 k/mm3 (150-450); WHITE BLOOD COUNT 8.8 K/mm3 (4.0-10.0)
[2017-05-04 09:47] LABS: ALBUMIN 3.5 GM/DL (3.2-5.2); ALBUMIN/GLOBULIN RATIO 0.97 (1.00-1.93); ALKALINE PHOSPHATASE 80 U/L (45-117); ALT/SGPT 31 U/L (12-78); ANION GAP 6 MEQ/L (8-16); AST/SGOT 15 U/L (15-37); BILIRUBIN,TOTAL 0.7 MG/DL (0.2-1.0); BLOOD UREA NITROGEN 29 MG/DL (7-18); CALCIUM LEVEL 8.8 MG/DL (8.8-10.2); CARBON DIOXIDE LEVEL 31 MEQ/L (21-32); CHLORIDE LEVEL 99 MEQ/L (98-107); CREATININE FOR GFR 1.13 MG/DL (0.70-1.30); GLOMERULAR FILTRATION RATE > 60.0 (>42); GLUCOSE, FASTING 173 MG/DL (83-110); POTASSIUM SERUM 3.7 MEQ/L (3.5-5.1); SODIUM LEVEL 136 MEQ/L (136-145); TOTAL PROTEIN 7.1 GM/DL (6.4-8.2)
[2017-05-04 10:03] LABS: INR 2.76
== END ==
LOC: M LAB 08:31
PROVIDERS: ATTEND Family Medicine
DX: I48.1 Persistent atrial fibrillation (principal)

== ENCOUNTER → 2017-05-12 | Outpatient (CLI) | payer MEDICARE ==
[2017-05-12 08:03] LABS: BASO % 0.7 % (0.0-1.0); EOS # 0.2 K/mm3 (0.0-0.50); EOS % 2.3 % (0.0-3.0); LARGE UNSTAINED CELL # 0.2 K/mm3 (0.0-0.4); LARGE UNSTAINED CELL % 3.1 % (0.0-4.0); LYMPH # 1.3 K/mm3 (1.5-4.5); LYMPH % 18.9 % (24.0-44.0); MEAN CORPUSCULAR HEMOGLOBIN 30.9 pg (27.0-33.0); MEAN CORPUSCULAR HGB CONC 33.5 g/dl (32.0-36.5); MEAN CORPUSCULAR VOLUME 92.1 fl (80.0-96.0); MONO # 0.4 K/mm3 (0.0-0.8); MONO % 6.6 % (0.0-5.0); NEUTROPHILS # 4.6 K/mm3 (1.8-7.7); NEUTROPHILS % 68.3 % (36.0-66.0); PLATELET COUNT, AUTOMATED 367 k/mm3 (150-450); RED CELL DISTRIBUTION WIDTH 13.8 % (11.5-14.5); WHITE BLOOD COUNT 6.7 K/mm3 (4.0-10.0)
[2017-05-12 08:08] LABS: INR 3.29
[2017-05-12 08:27] LABS: ALBUMIN 3.8 GM/DL (3.2-5.2); ALBUMIN/GLOBULIN RATIO 1.09 (1.00-1.93); BILIRUBIN,TOTAL 0.5 MG/DL (0.2-1.0); CALCIUM LEVEL 9.1 MG/DL (8.8-10.2); CREATININE FOR GFR 1.44 MG/DL (0.70-1.30); GLOMERULAR FILTRATION RATE 50.9 (>42); POTASSIUM SERUM 4.4 MEQ/L (3.5-5.1); TOTAL PROTEIN 7.3 GM/DL (6.4-8.2)
== END ==
LOC: M LAB 06:33
PROVIDERS: ATTEND Family Medicine
DX: L03.116 Cellulitis of left lower limb (principal); Z79.01 Long term (current) use of anticoagulants

== ENCOUNTER → 2017-05-16 | Outpatient (CLI) | payer MEDICARE ==
[2017-05-16 09:03] LABS: BASO # 0.1 K/mm3 (0.0-0.2); EOS # 0.1 K/mm3 (0.0-0.50); EOS % 2.4 % (0.0-3.0); LARGE UNSTAINED CELL # 0.1 K/mm3 (0.0-0.4); LARGE UNSTAINED CELL % 2.2 % (0.0-4.0); LYMPH # 1.1 K/mm3 (1.5-4.5); LYMPH % 16.9 % (24.0-44.0); MEAN CORPUSCULAR HGB CONC 33.4 g/dl (32.0-36.5); MEAN CORPUSCULAR VOLUME 92.8 fl (80.0-96.0); MONO # 0.4 K/mm3 (0.0-0.8); MONO % 6.9 % (0.0-5.0); NEUTROPHILS % 70.6 % (36.0-66.0); PLATELET COUNT, AUTOMATED 317 k/mm3 (150-450); RED CELL DISTRIBUTION WIDTH 14.4 % (11.5-14.5); WHITE BLOOD COUNT 5.6 K/mm3 (4.0-10.0)
[2017-05-16 09:36] LABS: CALCIUM LEVEL 8.5 MG/DL (8.8-10.2); CREATININE FOR GFR 1.28 MG/DL (0.70-1.30); GLOMERULAR FILTRATION RATE 58.3 (>42); POTASSIUM SERUM 4.3 MEQ/L (3.5-5.1)
[2017-05-18 00:08] LABS: Lyme Disease IgG/IgM Antibodie <0.91 ISR (0.00-0.90); Lyme Disease IgM Ab Quantitati <0.80 index (0.00-0.79)
== END ==
LOC: M LAB 08:31
PROVIDERS: ATTEND Family Medicine
DX: L03.116 Cellulitis of left lower limb (principal)

== ENCOUNTER → 2017-05-29 | Outpatient (CLI) | payer MEDICARE ==
[2017-05-29 08:00] LABS: INR 3.07
== END ==
LOC: M LAB 06:41
PROVIDERS: ATTEND Physician Assistant
DX: I48.0 Paroxysmal atrial fibrillation (principal)

== ENCOUNTER → 2017-06-26 | Outpatient (CLI) | payer MEDICARE ==
[2017-06-26 07:06] LABS: INR 2.6
== END ==
LOC: M LAB 06:34
PROVIDERS: ATTEND Physician Assistant
DX: I48.0 Paroxysmal atrial fibrillation (principal)

== ENCOUNTER → 2017-06-27 | Outpatient (CLI) | payer MEDICARE ==
[2017-06-27 07:48] LABS: MEAN CORPUSCULAR HGB CONC 34.7 g/dl (32.0-36.5); MEAN CORPUSCULAR VOLUME 92.1 fl (80.0-96.0); RED CELL DISTRIBUTION WIDTH 13.7 % (11.5-14.5); WHITE BLOOD COUNT 6.7 K/mm3 (4.0-10.0)
[2017-06-27 08:03] LABS: ALBUMIN 3.8 GM/DL (3.2-5.2); ALBUMIN/GLOBULIN RATIO 1.09 (1.00-1.93); ALKALINE PHOSPHATASE 77 U/L (45-117); ALT/SGPT 30 U/L (12-78); ANION GAP 7 MEQ/L (8-16); AST/SGOT 14 U/L (15-37); BILIRUBIN,TOTAL 0.7 MG/DL (0.2-1.0); BLOOD UREA NITROGEN 21 MG/DL (7-18); CALCIUM LEVEL 8.6 MG/DL (8.8-10.2); CARBON DIOXIDE LEVEL 32 MEQ/L (21-32); CHLORIDE LEVEL 103 MEQ/L (98-107); CREATININE FOR GFR 1.11 MG/DL (0.70-1.30); GLOMERULAR FILTRATION RATE > 60.0 (>42); GLUCOSE, FASTING 147 MG/DL (83-110); MAGNESIUM LEVEL 2.5 MG/DL (1.8-2.4); POTASSIUM SERUM 4.1 MEQ/L (3.5-5.1); SODIUM LEVEL 142 MEQ/L (136-145); TOTAL PROTEIN 7.3 GM/DL (6.4-8.2)
== END ==
LOC: M LAB 06:39
PROVIDERS: ATTEND Physician Assistant
DX: I50.32 Chronic diastolic (congestive) heart failure (principal); I48.0 Paroxysmal atrial fibrillation

== ENCOUNTER → 2017-06-28 | Outpatient (CLI) | payer MEDICARE ==
--- NOTE | 2017-06-29 07:09 | REP ---
PA and lateral chest: Comparisons are 12/22/2016 and 06/23/2016. The small focal zone of increased density above the dome of the left hemidiaphragm as a change from prior studies, compatible with focal discoid atelectasis. The remainder the lung miller are clear and unchanged. Cardiac size is normal. There is a dual-chamber pacemaker, unchanged. The ruthy, mediastinum, and bony thorax are unremarkable except for mild grade 1 compression deformity of the T11 vertebral body, unchanged. Impression: Minor discoid atelectasis above the left hemidiaphragm. 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 Pacemaker. Otherwise, negative PA and lateral chest. Signed by Noble Salgado MD 06/28/2017 12:05 P
== END ==
LOC: M LAB 11:27 → M RAD 11:27
PROVIDERS: ATTEND Physician Assistant
DX: I48.0 Paroxysmal atrial fibrillation (principal)

== ENCOUNTER → 2017-07-25 | Outpatient (CLI) | payer MEDICARE ==
[2017-07-25 07:17] LABS: INR 2.23
== END ==
LOC: M LAB 06:37
PROVIDERS: ATTEND Physician Assistant
DX: I48.0 Paroxysmal atrial fibrillation (principal)

== ENCOUNTER → 2017-08-09 | Outpatient (CLI) | payer MEDICARE ==
[2017-08-09 07:30] LABS: ALBUMIN 3.7 GM/DL (3.2-5.2); ALBUMIN/GLOBULIN RATIO 1.06 (1.00-1.93); ALKALINE PHOSPHATASE 87 U/L (45-117); ALT/SGPT 27 U/L (12-78); ANION GAP 7 MEQ/L (8-16); AST/SGOT 11 U/L (7-37); BILIRUBIN,TOTAL 0.6 MG/DL (0.2-1.0); BLOOD UREA NITROGEN 24 MG/DL (7-18); CARBON DIOXIDE LEVEL 32 MEQ/L (21-32); CHLORIDE LEVEL 100 MEQ/L (98-107); CREATININE FOR GFR 0.97 MG/DL (0.70-1.30); GLOMERULAR FILTRATION RATE > 60.0 (>42); GLUCOSE, FASTING 158 MG/DL (83-110); POTASSIUM SERUM 3.8 MEQ/L (3.5-5.1); SODIUM LEVEL 139 MEQ/L (136-145); TOTAL PROTEIN 7.2 GM/DL (6.4-8.2)
== END ==
LOC: M LAB 06:20
PROVIDERS: ATTEND Family Medicine
DX: E11.65 Type 2 diabetes mellitus with hyperglycemia (principal)

== ENCOUNTER 2017-08-21 07:00 | Day surgery (SDC) | payer MEDICARE ==
[~2017-08-21] VITALS: Ht 175.3 cm; Wt 103.0 kg
[2017-08-21] MEDS ORDERED: NS 1,000 ML IV ONE (07:30)
[2017-08-21] MEDS ORDERED: PROPOFOL 200 MG/20 ML VIAL As Ordered ONE (08:28)
[2017-08-21] MEDS ORDERED: LIDOCAINE 2% INJ 100 MG/5 ML SDV (FOR ANES.) As Ordered ONE (08:29)
--- NOTE | 2017-08-21 08:42 | ROOR ---
Patient Name: Nick Bonner Procedure Date: 08/21/2017 8:10 AM Date of : 1940 Age: 77 Room: [facility] Gender: Male Note Status: Finalized Procedure: Total Colonoscopy to Cecum + Cold Snare Polypectomy + Hemoclips Indications: Screening for colorectal malignant neoplasm, Last colonoscopy: 2006 Providers: River Esposito MD Referring MD: Priscilla Liriano MD Requesting Provider: Medicines: Monitored Anesthesia Care Complications: No immediate complications. Procedure: Pre-Anesthesia Assessment: - The heart rate, respiratory rate, oxygen saturations, blood pressure, adequacy of pulmonary ventilation, and response to care were monitored throughout the procedure. The Colonoscope was introduced through the anus and advanced to the cecum, identified by appendiceal orifice and ileocecal valve. The colonoscopy was performed without difficulty. The patient tolerated the procedure well. The quality of the bowel preparation was excellent. Findings: The perianal and digital rectal examinations were normal. Non-bleeding internal hemorrhoids were found during retroflexion. The hemorrhoids were small and Grade I (internal hemorrhoids that do not prolapse). Multiple small and large-mouthed diverticula were found in the recto-sigmoid colon, sigmoid colon and descending colon. Multiple sessile polyps were found in the cecum. The polyps were small in size. These polyps were removed with a jumbo cold forceps. Resection and retrieval were complete. A medium polyp was found in the hepatic flexure. The polyp was sessile. The polyp was removed with a cold snare. Resection and retrieval were complete. To prevent bleeding after the polypectomy, three hemostatic clips were successfully placed (MR conditional). There was no bleeding at the end of the procedure. The exam was otherwise without abnormality on direct and retroflexion views. The exam was otherwise without abnormality. Impression: - Non-bleeding internal hemorrhoids. - Diverticulosis in the recto-sigmoid colon, in the sigmoid colon and in the descending colon. - Multiple small polyps in the cecum, removed with a jumbo cold forceps. Resected and retrieved. - One medium polyp at the hepatic flexure, removed with a cold snare. Resected and retrieved. Clips (MR conditional) were placed. - The examination was otherwise normal on direct and retroflexion views. - The examination was otherwise normal. - The exam was otherwise normal to the cecum. Recommendation: - Patient has a contact number available for emergencies. The signs and symptoms of potential delayed complications were discussed with the patient. Return to normal activities tomorrow. Written discharge instructions were provided to the patient. - High fiber diet. - Discharge patient to home. - Continue present medications. - Await pathology results. - Telephone GI clinic for pathology results in 1 week. - Repeat colonoscopy for symptoms only. - Check Portal Online for Path Results.([email or web address]) - Return to referring physician. - The findings and recommendations were discussed with the patient's family. River Esposito MD River Esposito MD 08/21/2017 8:41:42 AM This report has been signed electronically. Number of Addenda: 0 Note Initiated On: 08/21/2017 8:10 AM Estimated Blood Loss: Estimated blood loss: none.
[2017-08-21 09:01] VITALS: BP 130/71
== END 2017-08-21 09:04 | disposition home or self-care (01) ==
LOC: M OPP 07:00
PROVIDERS: ATTEND Internal Medicine Gastroenterology
DX: Z12.11 Encounter for screening for malignant neoplasm of colon (principal); K57.30 Diverticulosis of large intestine without perforation or abscess without bleeding; K64.0 First degree hemorrhoids; I11.0 Hypertensive heart disease with heart failure; E78.00 Pure hypercholesterolemia, unspecified; I50.9 Heart failure, unspecified; E11.9 Type 2 diabetes mellitus without complications; Z79.84 Long term (current) use of oral hypoglycemic drugs; Z79.01 Long term (current) use of anticoagulants; Z79.899 Other long term (current) drug therapy

== ENCOUNTER → 2017-08-24 | Outpatient (CLI) | payer MEDICARE ==
[2017-08-24 07:44] LABS: INR 1.25
== END ==
LOC: M LAB 06:35
PROVIDERS: ATTEND Nurse Practitioner Family
DX: I48.0 Paroxysmal atrial fibrillation (principal)

== ENCOUNTER → 2017-09-04 | Outpatient (CLI) | payer MEDICARE ==
[2017-09-04 07:51] LABS: INR 1.68
== END ==
LOC: M LAB 06:30
PROVIDERS: ATTEND Nurse Practitioner Family
DX: I48.0 Paroxysmal atrial fibrillation (principal)

== ENCOUNTER → 2017-09-11 | Outpatient (CLI) | payer MEDICARE ==
[~2017-09-11] MED LIST changes: +TRAM50TA2 PO; +[UNRECOGNIZED DRUG - CODE] XX
[2017-09-11 07:44] LABS: INR 2.01
== END ==
LOC: M LAB 06:13
PROVIDERS: ATTEND Physician Assistant
DX: I48.0 Paroxysmal atrial fibrillation (principal)

== ENCOUNTER 2017-09-13 19:31 | Emergency (ER) | payer MEDICARE ==
[~2017-09-13] VITALS: Ht 175.3 cm; Wt 100.0 kg
[~2017-09-13 19:31] MED LIST changes: -TRAM50TA2 PO; -[UNRECOGNIZED DRUG - CODE] XX
[2017-09-13] MEDS ORDERED: [UNRECOGNIZED DRUG - CODE] XX ×2 (21:49→21:52)
--- NOTE | 2017-09-13 21:50 | REP ---
AP pelvis and left hip: AP pelvis: There are no pelvic fracture. The sacroiliac articulations and right left hip articulations are unremarkable. There is lumbar scoliosis convex left. Impression: No pelvic fracture. Left hip AP and frog-leg views: There is no hip fracture or dislocation. Mineralization joint space are normal. There are no calcifications or foreign bodies. Impression: Negative left hip. Signed by Noble Salgado MD 09/13/2017 09:39 P
--- NOTE | 2017-09-13 21:50 | REP ---
Left femur two views: AP and lateral views of the mid and distal left femur are performed. Proximal femurs excluded at the film margin. There is no fracture or dislocation. There is a bone island in the distal femoral shaft. Signed by Noble Salgado MD 09/13/2017 09:41 P
[2017-09-13] MEDS ORDERED: PERCOCET 5MG/325MG TAB PO ONE (22:00)
[2017-09-13 22:08] VITALS: BP 148/83
[2017-09-18] MEDS ORDERED: TRAM50TA2 PO (20:21)
== END 2017-09-13 22:08 | disposition home or self-care (01) ==
LOC: M ED 19:31
DX: S76.112A Strain of left quadriceps muscle, fascia and tendon, initial encounter (principal); W19.XXXA Unspecified fall, initial encounter; Y92.410 Unspecified street and highway as the place of occurrence of the external cause; Y93.89 Activity, other specified; Y99.8 Other external cause status; Z79.899 Other long term (current) drug therapy; Z79.01 Long term (current) use of anticoagulants; Z79.84 Long term (current) use of oral hypoglycemic drugs

== ENCOUNTER 2017-09-18 18:15 | Inpatient (IN) | payer MEDICARE ==
[2017-09-18] MEDS ORDERED: AMMONIA AROMATIC INHALANT (FLOOR STOCK) As Ordered (19:21)
[2017-09-18] MEDS: NS 1,000 ML IV ×2 (19:45→23:23)
[2017-09-18] MEDS ORDERED: LIDOCAINE 2% 5ML JELLY UROJET As Ordered (19:58)
[2017-09-18 20:09] LABS: BASO % 0.1 % (0.0-1.0); IMMATURE GRANULOCYTE # 0.1 10^3/uL (0-0); IMMATURE GRANULOCYTE % 0.5 % (0-0); LYMPH # 0.6 10^3/uL (1.5-4.5); LYMPH % 4.4 % (24.0-44.0); MEAN CORPUSCULAR HEMOGLOBIN 31.3 pg (27.0-33.0); MEAN CORPUSCULAR HGB CONC 34.1 g/dl (32.0-36.5); MEAN CORPUSCULAR VOLUME 91.8 fl (80.0-96.0); MONO # 0.9 10^3/uL (0.0-0.8); MONO % 6.9 % (0.0-5.0); NEUTROPHILS # 11.9 10^3/uL (1.8-7.7); NEUTROPHILS % 88.1 % (36.0-66.0); PLATELET COUNT, AUTOMATED 332 10^3/uL (150-450); RED CELL DISTRIBUTION WIDTH 13.5 % (11.5-14.5); WHITE BLOOD COUNT 13.6 10^3/uL (4.0-10.0)
[2017-09-18 20:27] LABS: KETONE, URINE AUTO RFX NEGATIVE (NEGATIVE); LEUKOCYTE ESTERASE UR AUTO RFX NEGATIVE (NEGATIVE); MUCUS, URINE RFX SMALL (NEGATIVE); NITRITE, URINE AUTO RFX NEGATIVE (NEGATIVE); RBC, URINE AUTO RFX 0 /HPF (0-3); SPECIFIC GRAVITY UR AUTO RFX 1.013 (1.002-1.035); SQUAM EPITHELIAL CELL UR AURFX 0 /HPF (0-6); WBC, URINE AUTO RFX 0 /HPF (0-3)
[2017-09-18] MEDS ORDERED: GLUCOSE 4 GM CHEW TABLET PO (20:30)
[2017-09-18] MEDS ORDERED: DEXTROSE 50% 50 ML SYRINGE IV (20:30)
[2017-09-18] MEDS ORDERED: GLUCAGON FOR INJ 1 MG VIAL (J1610) SC (20:30)
[2017-09-18] MEDS: HumaLOG INSULIN (NovoLOG) PER UNIT SC (21:00)
[2017-09-18] MEDS: ATENOLOL 50 MG TAB PO (23:51)
[2017-09-18] MEDS: ATORVASTATIN 20 MG TAB PO (23:51)
[2017-09-18] MEDS: LATANOPROST 0.005% OPHTH SOLN 2.5 ML OU (23:53)
[2017-09-18] MEDS: WARFARIN SOD 5 MG TAB PO (23:53)
[2017-09-18] MEDS: OLOPATADINE 0.1% OPHTH SOL 5ML(PATANOL) OU (23:54)
[2017-09-19 07:13] LABS: MEAN CORPUSCULAR HEMOGLOBIN 32.2 pg (27.0-33.0); MEAN CORPUSCULAR HGB CONC 34.9 g/dl (32.0-36.5); MEAN CORPUSCULAR VOLUME 92.4 fl (80.0-96.0); RED CELL DISTRIBUTION WIDTH 13.6 % (11.5-14.5); WHITE BLOOD COUNT 7.8 10^3/uL (4.0-10.0)
[2017-09-19 07:15] LABS: PLATELET COUNT, AUTOMATED 222 10^3/uL (150-450)
[2017-09-19 07:37] LABS: ANION GAP 11 MEQ/L (8-16); BLOOD UREA NITROGEN 81 MG/DL (7-18); CALCIUM LEVEL 8.3 MG/DL (8.8-10.2); CARBON DIOXIDE LEVEL 26 MEQ/L (21-32); CHLORIDE LEVEL 101 MEQ/L (98-107); CREATININE FOR GFR 2.92 MG/DL (0.70-1.30); GLOMERULAR FILTRATION RATE 22.5 (>42); GLUCOSE, FASTING 178 MG/DL (83-110); POTASSIUM SERUM 3.6 MEQ/L (3.5-5.1); SODIUM LEVEL 138 MEQ/L (136-145)
[2017-09-19 08:12] LABS: MEAN CORPUSCULAR HEMOGLOBIN 31.4 pg (27.0-33.0); MEAN CORPUSCULAR HGB CONC 33.8 g/dl (32.0-36.5); MEAN CORPUSCULAR VOLUME 92.9 fl (80.0-96.0); PLATELET COUNT, AUTOMATED 228 10^3/uL (150-450); RED CELL DISTRIBUTION WIDTH 13.7 % (11.5-14.5); WHITE BLOOD COUNT 8.4 10^3/uL (4.0-10.0)
[2017-09-19] MEDS: amLODIPine 5 MG TAB PO (08:59)
[2017-09-19] MEDS: HumaLOG INSULIN (NovoLOG) PER UNIT SC ×4 (08:59→21:00)
[2017-09-19] MEDS: NS 1,000 ML IV ×3 (09:00→21:13)
[2017-09-19] MEDS: AMIODARONE 200 MG TAB (PACERONE) PO (09:00)
[2017-09-19] MEDS: ATENOLOL 50 MG TAB PO ×2 (09:00→21:13)
[2017-09-19] MEDS: OLOPATADINE 0.1% OPHTH SOL 5ML(PATANOL) OU ×2 (09:01→21:13)
[2017-09-19] MEDS: ACETAMINOPHEN 500 MG TAB PO (12:18)
[2017-09-19 13:37] LABS: IMMEDIATE SPIN CROSSMATCH 1 2
[2017-09-19] MEDS: ATORVASTATIN 20 MG TAB PO (21:12)
[2017-09-19] MEDS: LATANOPROST 0.005% OPHTH SOLN 2.5 ML OU (21:13)
[2017-09-20] MEDS: NS 1,000 ML IV ×2 (04:45→17:19)
[2017-09-20 06:03] LABS: MEAN CORPUSCULAR HGB CONC 34.4 g/dl (32.0-36.5); PLATELET COUNT, AUTOMATED 202 10^3/uL (150-450); RED CELL DISTRIBUTION WIDTH 14.8 % (11.5-14.5); WHITE BLOOD COUNT 7.3 10^3/uL (4.0-10.0)
[2017-09-20 06:12] LABS: INR 1.87
[2017-09-20 06:24] LABS: ANION GAP 8 MEQ/L (8-16); BLOOD UREA NITROGEN 61 MG/DL (7-18); CALCIUM LEVEL 7.8 MG/DL (8.8-10.2); CARBON DIOXIDE LEVEL 24 MEQ/L (21-32); CHLORIDE LEVEL 108 MEQ/L (98-107); CREATININE FOR GFR 2.27 MG/DL (0.70-1.30); GLUCOSE, FASTING 157 MG/DL (83-110); POTASSIUM SERUM 3.3 MEQ/L (3.5-5.1); SODIUM LEVEL 140 MEQ/L (136-145)
[2017-09-20] MEDS: HumaLOG INSULIN (NovoLOG) PER UNIT SC ×4 (08:01→20:55)
[2017-09-20] MEDS: POTASSIUM CHLORIDE 10 MEQ SR TABLET PO (08:01)
[2017-09-20] MEDS: AMIODARONE 200 MG TAB (PACERONE) PO (08:01)
[2017-09-20] MEDS: ATENOLOL 50 MG TAB PO ×2 (08:01→20:55)
[2017-09-20] MEDS: OLOPATADINE 0.1% OPHTH SOL 5ML(PATANOL) OU ×2 (08:02→20:56)
[2017-09-20] MEDS: amLODIPine 5 MG TAB PO (08:02)
[2017-09-20] MEDS: traMADol 50 MG TAB PO (10:00)
[2017-09-20] MEDS: ATORVASTATIN 20 MG TAB PO (20:55)
[2017-09-20] MEDS: LATANOPROST 0.005% OPHTH SOLN 2.5 ML OU (20:56)
[2017-09-21] MEDS: NS 1,000 ML IV ×2 (05:52→12:16)
[2017-09-21 06:05] LABS: MEAN CORPUSCULAR HEMOGLOBIN 30.8 pg (27.0-33.0); MEAN CORPUSCULAR HGB CONC 33.2 g/dl (32.0-36.5); MEAN CORPUSCULAR VOLUME 92.6 fl (80.0-96.0); PLATELET COUNT, AUTOMATED 270 10^3/uL (150-450); RED CELL DISTRIBUTION WIDTH 14.6 % (11.5-14.5); WHITE BLOOD COUNT 10.2 10^3/uL (4.0-10.0)
[2017-09-21 06:32] LABS: INR 1.67
[2017-09-21 06:41] LABS: ANION GAP 8 MEQ/L (8-16); BLOOD UREA NITROGEN 40 MG/DL (7-18); CALCIUM LEVEL 8.4 MG/DL (8.8-10.2); CARBON DIOXIDE LEVEL 29 MEQ/L (21-32); CHLORIDE LEVEL 105 MEQ/L (98-107); CREATININE FOR GFR 1.54 MG/DL (0.70-1.30); GLUCOSE, FASTING 149 MG/DL (83-110); POTASSIUM SERUM 3.9 MEQ/L (3.5-5.1); SODIUM LEVEL 142 MEQ/L (136-145)
[2017-09-21] MEDS: PHYTONADIONE 5 MG TAB PO (10:44)
[2017-09-21] MEDS: AMIODARONE 200 MG TAB (PACERONE) PO (10:45)
[2017-09-21] MEDS: ATENOLOL 50 MG TAB PO ×2 (10:45→20:52)
[2017-09-21] MEDS: amLODIPine 5 MG TAB PO (10:45)
[2017-09-21] MEDS: OLOPATADINE 0.1% OPHTH SOL 5ML(PATANOL) OU ×2 (10:47→20:51)
[2017-09-21] MEDS: HumaLOG INSULIN (NovoLOG) PER UNIT SC ×4 (10:49→20:53)
[2017-09-21] MEDS: SENNA 8.6 MG TAB (SENOKOT) PO ×2 (12:14→20:52)
[2017-09-21] MEDS: LATANOPROST 0.005% OPHTH SOLN 2.5 ML OU (20:51)
[2017-09-21] MEDS: ATORVASTATIN 20 MG TAB PO (20:52)
[2017-09-22 06:14] LABS: MEAN CORPUSCULAR HEMOGLOBIN 30.4 pg (27.0-33.0); MEAN CORPUSCULAR HGB CONC 33.7 g/dl (32.0-36.5); MEAN CORPUSCULAR VOLUME 90.2 fl (80.0-96.0); PLATELET COUNT, AUTOMATED 279 10^3/uL (150-450); RED CELL DISTRIBUTION WIDTH 14.1 % (11.5-14.5); WHITE BLOOD COUNT 9.1 10^3/uL (4.0-10.0)
[2017-09-22 06:32] LABS: INR 1.29
[2017-09-22 06:36] LABS: ANION GAP 9 MEQ/L (8-16); BLOOD UREA NITROGEN 26 MG/DL (7-18); CALCIUM LEVEL 7.8 MG/DL (8.8-10.2); CARBON DIOXIDE LEVEL 25 MEQ/L (21-32); CHLORIDE LEVEL 107 MEQ/L (98-107); CREATININE FOR GFR 1.27 MG/DL (0.70-1.30); GLOMERULAR FILTRATION RATE 58.7 (>42); GLUCOSE, FASTING 158 MG/DL (83-110); POTASSIUM SERUM 3.5 MEQ/L (3.5-5.1); SODIUM LEVEL 141 MEQ/L (136-145)
[2017-09-22] MEDS: SENNA 8.6 MG TAB (SENOKOT) PO ×2 (09:29→21:26)
[2017-09-22] MEDS: ATENOLOL 50 MG TAB PO ×2 (09:30→21:26)
[2017-09-22] MEDS: HumaLOG INSULIN (NovoLOG) PER UNIT SC ×4 (09:31→21:00)
[2017-09-22] MEDS: AMIODARONE 200 MG TAB (PACERONE) PO (09:31)
[2017-09-22] MEDS: OLOPATADINE 0.1% OPHTH SOL 5ML(PATANOL) OU ×2 (09:32→23:02)
[2017-09-22] MEDS ORDERED: fentaNYL 100 MCG/2 ML INJECTION (J3010) As Ordered ×2 (16:38→18:41)
[2017-09-22] MEDS ORDERED: MIDAZOLAM INJ 2 MG/2 ML VIAL (J2250) As Ordered (16:38)
[2017-09-22] MEDS ORDERED: KETAMINE HCL 200 MG/20 ML VIAL As Ordered (16:56)
[2017-09-22] MEDS: ceFAZolin 2 GM/D5W 50 ML IV BAG (J0690 PER 500MG) As Ordered (17:20)
[2017-09-22] MEDS: ceFAZolin 1GM INJ (J0690 PER 500MG) As Ordered ×2 (17:35→18:23)
[2017-09-22] MEDS: fentaNYL 100 MCG/2 ML INJECTION (J3010) IV ×4 (18:44→19:02)
[2017-09-22] MEDS: PERCOCET 5MG/325MG TAB PO ×2 (18:55→19:25)
[2017-09-22] MEDS ORDERED: PERCOCET 5MG/325MG TAB As Ordered ×2 (18:56→19:24)
[2017-09-22] MEDS: LR 1,000 ML IV (19:15)
[2017-09-22] MEDS ORDERED: ONDANSETRON 4MG/2ML VIAL (J2405) IV (19:15)
[2017-09-22] MEDS: MORPHINE 4 MG/ML 1ML SYRINGE IV (21:11)
[2017-09-22] MEDS: WARFARIN SOD 5 MG TAB PO (21:26)
[2017-09-22] MEDS: ATORVASTATIN 20 MG TAB PO (21:26)
[2017-09-22] MEDS: LATANOPROST 0.005% OPHTH SOLN 2.5 ML OU (23:02)
[2017-09-22] MEDS: NORCO, ANEXSIA 5/325MG TABLET (HYDROcodone/ACETAMINOPHEN) PO (23:04)
[2017-09-23] MEDS: MORPHINE 4 MG/ML 1ML SYRINGE IV (02:00)
[2017-09-23] MEDS: NORCO, ANEXSIA 5/325MG TABLET (HYDROcodone/ACETAMINOPHEN) PO ×4 (05:47→20:03)
[2017-09-23 06:23] LABS: MEAN CORPUSCULAR HEMOGLOBIN 31.1 pg (27.0-33.0); MEAN CORPUSCULAR HGB CONC 33.8 g/dl (32.0-36.5); PLATELET COUNT, AUTOMATED 288 10^3/uL (150-450); RED CELL DISTRIBUTION WIDTH 14.1 % (11.5-14.5); WHITE BLOOD COUNT 10.9 10^3/uL (4.0-10.0)
[2017-09-23 06:38] LABS: INR 1.25
[2017-09-23 07:02] LABS: ANION GAP 6 MEQ/L (8-16); BLOOD UREA NITROGEN 22 MG/DL (7-18); CARBON DIOXIDE LEVEL 28 MEQ/L (21-32); CHLORIDE LEVEL 104 MEQ/L (98-107); CREATININE FOR GFR 1.27 MG/DL (0.70-1.30); GLOMERULAR FILTRATION RATE 58.7 (>42); GLUCOSE, FASTING 197 MG/DL (83-110); POTASSIUM SERUM 3.8 MEQ/L (3.5-5.1); SODIUM LEVEL 138 MEQ/L (136-145)
[2017-09-23] MEDS: OLOPATADINE 0.1% OPHTH SOL 5ML(PATANOL) OU ×2 (08:55→20:02)
[2017-09-23] MEDS: SENNA 8.6 MG TAB (SENOKOT) PO ×2 (08:56→20:02)
[2017-09-23] MEDS: AMIODARONE 200 MG TAB (PACERONE) PO (08:56)
[2017-09-23] MEDS: HumaLOG INSULIN (NovoLOG) PER UNIT SC ×4 (08:57→20:12)
[2017-09-23] MEDS: amLODIPine 5 MG TAB PO (08:57)
[2017-09-23] MEDS: ATENOLOL 50 MG TAB PO ×2 (09:01→20:02)
[2017-09-23] MEDS: WARFARIN SOD 7.5 MG TAB PO (17:17)
[2017-09-23] MEDS: LATANOPROST 0.005% OPHTH SOLN 2.5 ML OU (20:02)
[2017-09-23] MEDS: ATORVASTATIN 20 MG TAB PO (20:02)
[2017-09-24 06:46] LABS: MEAN CORPUSCULAR HEMOGLOBIN 30.6 pg (27.0-33.0); MEAN CORPUSCULAR HGB CONC 32.9 g/dl (32.0-36.5); MEAN CORPUSCULAR VOLUME 92.9 fl (80.0-96.0); PLATELET COUNT, AUTOMATED 260 10^3/uL (150-450); RED CELL DISTRIBUTION WIDTH 13.9 % (11.5-14.5); WHITE BLOOD COUNT 10.1 10^3/uL (4.0-10.0)
[2017-09-24 06:59] LABS: INR 1.57
[2017-09-24 07:03] LABS: ANION GAP 8 MEQ/L (8-16); BLOOD UREA NITROGEN 20 MG/DL (7-18); CALCIUM LEVEL 7.5 MG/DL (8.8-10.2); CARBON DIOXIDE LEVEL 26 MEQ/L (21-32); CHLORIDE LEVEL 104 MEQ/L (98-107); CREATININE FOR GFR 1.22 MG/DL (0.70-1.30); GLOMERULAR FILTRATION RATE > 60.0 (>42); GLUCOSE, FASTING 192 MG/DL (83-110); POTASSIUM SERUM 3.6 MEQ/L (3.5-5.1); SODIUM LEVEL 138 MEQ/L (136-145)
[2017-09-24] MEDS: ATENOLOL 50 MG TAB PO ×2 (09:13→21:19)
[2017-09-24] MEDS: amLODIPine 5 MG TAB PO (09:13)
[2017-09-24] MEDS: SENNA 8.6 MG TAB (SENOKOT) PO ×2 (09:13→21:19)
[2017-09-24] MEDS: OLOPATADINE 0.1% OPHTH SOL 5ML(PATANOL) OU ×2 (09:14→21:19)
[2017-09-24] MEDS: AMIODARONE 200 MG TAB (PACERONE) PO (09:14)
[2017-09-24] MEDS: HumaLOG INSULIN (NovoLOG) PER UNIT SC ×4 (09:16→21:00)
[2017-09-24] MEDS: NORCO, ANEXSIA 5/325MG TABLET (HYDROcodone/ACETAMINOPHEN) PO ×4 (09:22→19:11)
[2017-09-24] MEDS: FUROSEMIDE 40 MG TAB PO (16:57)
[2017-09-24] MEDS: WARFARIN SOD 7.5 MG TAB PO (19:05)
[2017-09-24] MEDS: LATANOPROST 0.005% OPHTH SOLN 2.5 ML OU (21:19)
[2017-09-24] MEDS: ATORVASTATIN 20 MG TAB PO (21:19)
[2017-09-25] MEDS: NORCO, ANEXSIA 5/325MG TABLET (HYDROcodone/ACETAMINOPHEN) PO ×3 (04:52→17:30)
[2017-09-25 07:06] LABS: MEAN CORPUSCULAR HGB CONC 33.2 g/dl (32.0-36.5); MEAN CORPUSCULAR VOLUME 93.3 fl (80.0-96.0); PLATELET COUNT, AUTOMATED 266 10^3/uL (150-450); RED CELL DISTRIBUTION WIDTH 13.7 % (11.5-14.5); WHITE BLOOD COUNT 9.6 10^3/uL (4.0-10.0)
[2017-09-25 07:21] LABS: INR 1.87
[2017-09-25 07:31] LABS: ANION GAP 10 MEQ/L (8-16); BLOOD UREA NITROGEN 17 MG/DL (7-18); CALCIUM LEVEL 7.5 MG/DL (8.8-10.2); CARBON DIOXIDE LEVEL 26 MEQ/L (21-32); CHLORIDE LEVEL 104 MEQ/L (98-107); GLOMERULAR FILTRATION RATE > 60.0 (>42); GLUCOSE, FASTING 134 MG/DL (83-110); POTASSIUM SERUM 3.6 MEQ/L (3.5-5.1); SODIUM LEVEL 140 MEQ/L (136-145)
[2017-09-25] MEDS: AMIODARONE 200 MG TAB (PACERONE) PO (08:16)
[2017-09-25] MEDS: FUROSEMIDE 40 MG TAB PO (08:16)
[2017-09-25] MEDS: SENNA 8.6 MG TAB (SENOKOT) PO ×2 (08:16→20:55)
[2017-09-25] MEDS: HumaLOG INSULIN (NovoLOG) PER UNIT SC ×4 (08:16→21:00)
[2017-09-25] MEDS: ATENOLOL 50 MG TAB PO ×2 (08:17→20:58)
[2017-09-25] MEDS: OLOPATADINE 0.1% OPHTH SOL 5ML(PATANOL) OU ×2 (08:17→20:58)
[2017-09-25] MEDS: amLODIPine 5 MG TAB PO (08:17)
[2017-09-25] MEDS: MAGNESIUM CITRATE 300 ML BTL PO ×2 (10:45→13:19)
[2017-09-25] MEDS: MIRALAX *UNIT DOSE* 17GM PACKET PO (13:19)
[2017-09-25] MEDS: MOM 30ML SUSPENSION UDC PO (13:19)
[2017-09-25] MEDS: WARFARIN SOD 7.5 MG TAB PO (17:29)
[2017-09-25] MEDS: ATORVASTATIN 20 MG TAB PO (20:55)
[2017-09-25] MEDS: LATANOPROST 0.005% OPHTH SOLN 2.5 ML OU (20:58)
[2017-09-26 08:17] LABS: MEAN CORPUSCULAR HEMOGLOBIN 30.7 pg (27.0-33.0); MEAN CORPUSCULAR HGB CONC 33.1 g/dl (32.0-36.5); MEAN CORPUSCULAR VOLUME 92.9 fl (80.0-96.0); PLATELET COUNT, AUTOMATED 314 10^3/uL (150-450); RED CELL DISTRIBUTION WIDTH 13.7 % (11.5-14.5); WHITE BLOOD COUNT 9.9 10^3/uL (4.0-10.0)
[2017-09-26 08:40] LABS: ANION GAP 8 MEQ/L (8-16); BLOOD UREA NITROGEN 19 MG/DL (7-18); CALCIUM LEVEL 7.7 MG/DL (8.8-10.2); CARBON DIOXIDE LEVEL 29 MEQ/L (21-32); CHLORIDE LEVEL 102 MEQ/L (98-107); CREATININE FOR GFR 1.16 MG/DL (0.70-1.30); GLOMERULAR FILTRATION RATE > 60.0 (>42); GLUCOSE, FASTING 197 MG/DL (83-110); MAGNESIUM LEVEL 2.1 MG/DL (1.8-2.4); POTASSIUM SERUM 3.9 MEQ/L (3.5-5.1); SODIUM LEVEL 139 MEQ/L (136-145)
[2017-09-26] MEDS: HumaLOG INSULIN (NovoLOG) PER UNIT SC ×4 (08:45→21:00)
[2017-09-26] MEDS: AMIODARONE 200 MG TAB (PACERONE) PO (08:46)
[2017-09-26] MEDS: MIRALAX *UNIT DOSE* 17GM PACKET PO (08:46)
[2017-09-26] MEDS: SENNA 8.6 MG TAB (SENOKOT) PO ×2 (08:46→21:58)
[2017-09-26] MEDS: MOM 30ML SUSPENSION UDC PO (08:46)
[2017-09-26] MEDS: amLODIPine 5 MG TAB PO (08:47)
[2017-09-26] MEDS: NORCO, ANEXSIA 5/325MG TABLET (HYDROcodone/ACETAMINOPHEN) PO ×3 (08:47→21:59)
[2017-09-26] MEDS: FUROSEMIDE 40 MG TAB PO (08:48)
[2017-09-26] MEDS: OLOPATADINE 0.1% OPHTH SOL 5ML(PATANOL) OU ×2 (08:48→21:58)
[2017-09-26] MEDS: ATENOLOL 50 MG TAB PO ×2 (08:48→21:58)
[2017-09-26] MEDS: WARFARIN SOD 2.5 MG TAB PO (18:08)
[2017-09-26] MEDS: ATORVASTATIN 20 MG TAB PO (21:58)
[2017-09-26] MEDS: LATANOPROST 0.005% OPHTH SOLN 2.5 ML OU (21:58)
[2017-09-27] MEDS: NORCO, ANEXSIA 5/325MG TABLET (HYDROcodone/ACETAMINOPHEN) PO ×4 (04:45→22:13)
[2017-09-27 06:59] LABS: MEAN CORPUSCULAR HGB CONC 32.7 g/dl (32.0-36.5); MEAN CORPUSCULAR VOLUME 91.9 fl (80.0-96.0); PLATELET COUNT, AUTOMATED 338 10^3/uL (150-450); RED CELL DISTRIBUTION WIDTH 13.8 % (11.5-14.5); WHITE BLOOD COUNT 8.1 10^3/uL (4.0-10.0)
[2017-09-27 07:06] LABS: ANION GAP 6 MEQ/L (8-16); BLOOD UREA NITROGEN 18 MG/DL (7-18); CALCIUM LEVEL 7.5 MG/DL (8.8-10.2); CARBON DIOXIDE LEVEL 31 MEQ/L (21-32); CHLORIDE LEVEL 102 MEQ/L (98-107); GLOMERULAR FILTRATION RATE > 60.0 (>42); GLUCOSE, FASTING 137 MG/DL (83-110); MAGNESIUM LEVEL 2.3 MG/DL (1.8-2.4); SODIUM LEVEL 139 MEQ/L (136-145)
[2017-09-27] MEDS: MIRALAX *UNIT DOSE* 17GM PACKET PO (08:59)
[2017-09-27] MEDS: amLODIPine 5 MG TAB PO (08:59)
[2017-09-27] MEDS: HumaLOG INSULIN (NovoLOG) PER UNIT SC ×4 (08:59→21:00)
[2017-09-27] MEDS: MOM 30ML SUSPENSION UDC PO (08:59)
[2017-09-27] MEDS: SENNA 8.6 MG TAB (SENOKOT) PO ×2 (08:59→22:13)
[2017-09-27] MEDS: AMIODARONE 200 MG TAB (PACERONE) PO (09:00)
[2017-09-27] MEDS: ATENOLOL 50 MG TAB PO ×2 (09:00→22:14)
[2017-09-27] MEDS: FUROSEMIDE 40 MG TAB PO (09:00)
[2017-09-27] MEDS: OLOPATADINE 0.1% OPHTH SOL 5ML(PATANOL) OU ×2 (09:01→22:12)
[2017-09-27] MEDS: WARFARIN SOD 5 MG TAB PO (16:55)
[2017-09-27] MEDS: LATANOPROST 0.005% OPHTH SOLN 2.5 ML OU (22:12)
[2017-09-27] MEDS: ATORVASTATIN 20 MG TAB PO (22:13)
[2017-09-28] MEDS: HumaLOG INSULIN (NovoLOG) PER UNIT SC ×4 (08:05→21:00)
[2017-09-28] MEDS: MIRALAX *UNIT DOSE* 17GM PACKET PO (08:06)
[2017-09-28] MEDS: SENNA 8.6 MG TAB (SENOKOT) PO ×2 (08:06→22:31)
[2017-09-28] MEDS: MOM 30ML SUSPENSION UDC PO (08:06)
[2017-09-28] MEDS: FUROSEMIDE 40 MG TAB PO (08:07)
[2017-09-28] MEDS: AMIODARONE 200 MG TAB (PACERONE) PO (08:07)
[2017-09-28] MEDS: ATENOLOL 50 MG TAB PO ×3 (08:07→22:31)
[2017-09-28] MEDS: amLODIPine 5 MG TAB PO (08:08)
[2017-09-28] MEDS: OLOPATADINE 0.1% OPHTH SOL 5ML(PATANOL) OU ×2 (08:08→22:33)
[2017-09-28] MEDS: NORCO, ANEXSIA 5/325MG TABLET (HYDROcodone/ACETAMINOPHEN) PO ×2 (10:24→22:32)
[2017-09-28] MEDS: WARFARIN SOD 2.5 MG TAB PO (17:38)
[2017-09-28] MEDS: ATORVASTATIN 20 MG TAB PO (22:31)
[2017-09-28] MEDS: LATANOPROST 0.005% OPHTH SOLN 2.5 ML OU (22:33)
[2017-09-29 07:24] LABS: MEAN CORPUSCULAR HEMOGLOBIN 30.3 pg (27.0-33.0); MEAN CORPUSCULAR HGB CONC 32.6 g/dl (32.0-36.5); MEAN CORPUSCULAR VOLUME 93.1 fl (80.0-96.0); PLATELET COUNT, AUTOMATED 390 10^3/uL (150-450); RED CELL DISTRIBUTION WIDTH 13.5 % (11.5-14.5); WHITE BLOOD COUNT 8.2 10^3/uL (4.0-10.0)
[2017-09-29 07:38] LABS: INR 2.94
[2017-09-29 07:49] LABS: ANION GAP 3 MEQ/L (8-16); BLOOD UREA NITROGEN 17 MG/DL (7-18); CALCIUM LEVEL 8.1 MG/DL (8.8-10.2); CARBON DIOXIDE LEVEL 33 MEQ/L (21-32); CHLORIDE LEVEL 102 MEQ/L (98-107); CREATININE FOR GFR 1.03 MG/DL (0.70-1.30); GLOMERULAR FILTRATION RATE > 60.0 (>42); GLUCOSE, FASTING 133 MG/DL (83-110); MAGNESIUM LEVEL 2.6 MG/DL (1.8-2.4); POTASSIUM SERUM 4.6 MEQ/L (3.5-5.1); SODIUM LEVEL 138 MEQ/L (136-145)
[2017-09-29] MEDS: FUROSEMIDE 40 MG TAB PO (08:02)
[2017-09-29] MEDS: AMIODARONE 200 MG TAB (PACERONE) PO (08:02)
[2017-09-29] MEDS: SENNA 8.6 MG TAB (SENOKOT) PO ×2 (08:02→21:03)
[2017-09-29] MEDS: MIRALAX *UNIT DOSE* 17GM PACKET PO (08:02)
[2017-09-29] MEDS: MOM 30ML SUSPENSION UDC PO (08:02)
[2017-09-29] MEDS: ATENOLOL 50 MG TAB PO ×2 (08:03→21:03)
[2017-09-29] MEDS: amLODIPine 5 MG TAB PO (08:04)
[2017-09-29] MEDS: HumaLOG INSULIN (NovoLOG) PER UNIT SC ×4 (08:04→20:51)
[2017-09-29] MEDS: OLOPATADINE 0.1% OPHTH SOL 5ML(PATANOL) OU ×2 (09:00→21:03)
[2017-09-29] MEDS: NORCO, ANEXSIA 5/325MG TABLET (HYDROcodone/ACETAMINOPHEN) PO (13:53)
[2017-09-29] MEDS: WARFARIN SOD 4 MG TAB PO (17:15)
[2017-09-29] MEDS: ATORVASTATIN 20 MG TAB PO (21:02)
[2017-09-29] MEDS: LATANOPROST 0.005% OPHTH SOLN 2.5 ML OU (21:03)
[2017-09-30] MEDS: NORCO, ANEXSIA 5/325MG TABLET (HYDROcodone/ACETAMINOPHEN) PO ×3 (03:32→17:26)
[2017-09-30] MEDS: MIRALAX *UNIT DOSE* 17GM PACKET PO (08:54)
[2017-09-30] MEDS: MOM 30ML SUSPENSION UDC PO (08:54)
[2017-09-30] MEDS: HumaLOG INSULIN (NovoLOG) PER UNIT SC ×4 (08:54→21:00)
[2017-09-30] MEDS: AMIODARONE 200 MG TAB (PACERONE) PO (08:56)
[2017-09-30] MEDS: SENNA 8.6 MG TAB (SENOKOT) PO ×2 (08:56→22:01)
[2017-09-30] MEDS: amLODIPine 5 MG TAB PO (08:56)
[2017-09-30] MEDS: ATENOLOL 50 MG TAB PO ×2 (08:56→22:04)
[2017-09-30] MEDS: FUROSEMIDE 40 MG TAB PO (08:56)
[2017-09-30] MEDS: OLOPATADINE 0.1% OPHTH SOL 5ML(PATANOL) OU ×2 (08:57→22:05)
[2017-09-30] MEDS: WARFARIN SOD 2.5 MG TAB PO (17:25)
[2017-09-30] MEDS: ATORVASTATIN 20 MG TAB PO (22:00)
[2017-09-30] MEDS: LATANOPROST 0.005% OPHTH SOLN 2.5 ML OU (22:05)
[2017-10-01] MEDS: HumaLOG INSULIN (NovoLOG) PER UNIT SC ×4 (08:21→21:00)
[2017-10-01] MEDS: MOM 30ML SUSPENSION UDC PO (08:21)
[2017-10-01] MEDS: MIRALAX *UNIT DOSE* 17GM PACKET PO (08:21)
[2017-10-01] MEDS: SENNA 8.6 MG TAB (SENOKOT) PO ×2 (08:22→21:01)
[2017-10-01] MEDS: NORCO, ANEXSIA 5/325MG TABLET (HYDROcodone/ACETAMINOPHEN) PO ×2 (08:22→12:22)
[2017-10-01] MEDS: amLODIPine 5 MG TAB PO (08:23)
[2017-10-01] MEDS: AMIODARONE 200 MG TAB (PACERONE) PO (08:23)
[2017-10-01] MEDS: FUROSEMIDE 40 MG TAB PO (08:23)
[2017-10-01] MEDS: ATENOLOL 50 MG TAB PO ×2 (08:23→21:03)
[2017-10-01] MEDS: OLOPATADINE 0.1% OPHTH SOL 5ML(PATANOL) OU ×2 (08:24→21:03)
[2017-10-01] MEDS: WARFARIN SOD 4 MG TAB PO (17:37)
[2017-10-01] MEDS: ATORVASTATIN 20 MG TAB PO (21:02)
[2017-10-01] MEDS: LATANOPROST 0.005% OPHTH SOLN 2.5 ML OU (21:03)
[2017-10-02] MEDS: NORCO, ANEXSIA 5/325MG TABLET (HYDROcodone/ACETAMINOPHEN) PO ×3 (01:10→22:40)
[2017-10-02 06:31] LABS: MEAN CORPUSCULAR HEMOGLOBIN 30.7 pg (27.0-33.0); MEAN CORPUSCULAR HGB CONC 32.5 g/dl (32.0-36.5); MEAN CORPUSCULAR VOLUME 94.4 fl (80.0-96.0); PLATELET COUNT, AUTOMATED 482 10^3/uL (150-450); RED CELL DISTRIBUTION WIDTH 14.1 % (11.5-14.5); WHITE BLOOD COUNT 7.4 10^3/uL (4.0-10.0)
[2017-10-02 06:51] LABS: INR 2.72
[2017-10-02 06:56] LABS: ANION GAP 5 MEQ/L (8-16); BLOOD UREA NITROGEN 18 MG/DL (7-18); CALCIUM LEVEL 8.3 MG/DL (8.8-10.2); CARBON DIOXIDE LEVEL 32 MEQ/L (21-32); CHLORIDE LEVEL 100 MEQ/L (98-107); CREATININE FOR GFR 1.01 MG/DL (0.70-1.30); GLOMERULAR FILTRATION RATE > 60.0 (>42); GLUCOSE, FASTING 119 MG/DL (83-110); MAGNESIUM LEVEL 2.9 MG/DL (1.8-2.4); POTASSIUM SERUM 4.4 MEQ/L (3.5-5.1); SODIUM LEVEL 137 MEQ/L (136-145)
[2017-10-02] MEDS: HumaLOG INSULIN (NovoLOG) PER UNIT SC ×4 (07:30→20:30)
[2017-10-02] MEDS: OLOPATADINE 0.1% OPHTH SOL 5ML(PATANOL) OU ×2 (09:00→20:30)
[2017-10-02] MEDS: MIRALAX *UNIT DOSE* 17GM PACKET PO (09:00)
[2017-10-02] MEDS: SENNA 8.6 MG TAB (SENOKOT) PO ×2 (09:00→20:26)
[2017-10-02] MEDS: FUROSEMIDE 40 MG TAB PO (09:00)
[2017-10-02] MEDS: ATENOLOL 50 MG TAB PO ×2 (09:00→20:29)
[2017-10-02] MEDS: AMIODARONE 200 MG TAB (PACERONE) PO (09:00)
[2017-10-02] MEDS: amLODIPine 5 MG TAB PO (09:00)
[2017-10-02] MEDS: WARFARIN SOD 4 MG TAB PO (16:23)
[2017-10-02] MEDS: ATORVASTATIN 20 MG TAB PO (20:29)
[2017-10-02] MEDS: LATANOPROST 0.005% OPHTH SOLN 2.5 ML OU (20:30)
[2017-10-02] MEDS: RAMELTEON 8 MG TAB (ROZEREM) PO (21:00)
[2017-10-03] MEDS: HumaLOG INSULIN (NovoLOG) PER UNIT SC ×4 (08:20→21:00)
[2017-10-03] MEDS: FUROSEMIDE 40 MG TAB PO (08:21)
[2017-10-03] MEDS: amLODIPine 5 MG TAB PO (08:21)
[2017-10-03] MEDS: NORCO, ANEXSIA 5/325MG TABLET (HYDROcodone/ACETAMINOPHEN) PO ×2 (08:21→14:24)
[2017-10-03] MEDS: AMIODARONE 200 MG TAB (PACERONE) PO (08:21)
[2017-10-03] MEDS: ATENOLOL 50 MG TAB PO ×2 (08:22→21:10)
[2017-10-03] MEDS: SENNA 8.6 MG TAB (SENOKOT) PO ×2 (08:22→21:10)
[2017-10-03] MEDS: MIRALAX *UNIT DOSE* 17GM PACKET PO (08:22)
[2017-10-03] MEDS: OLOPATADINE 0.1% OPHTH SOL 5ML(PATANOL) OU ×2 (08:23→21:12)
[2017-10-03] MEDS: WARFARIN SOD 2.5 MG TAB PO (17:16)
[2017-10-03] MEDS: RAMELTEON 8 MG TAB (ROZEREM) PO (21:00)
[2017-10-03] MEDS: ATORVASTATIN 20 MG TAB PO (21:10)
[2017-10-03] MEDS: LATANOPROST 0.005% OPHTH SOLN 2.5 ML OU (21:12)
[2017-10-04] MEDS: NORCO, ANEXSIA 5/325MG TABLET (HYDROcodone/ACETAMINOPHEN) PO ×2 (01:25→12:51)
[2017-10-04] MEDS: MIRALAX *UNIT DOSE* 17GM PACKET PO (09:11)
[2017-10-04] MEDS: HumaLOG INSULIN (NovoLOG) PER UNIT SC ×2 (09:11→12:51)
[2017-10-04] MEDS: ATENOLOL 50 MG TAB PO (09:12)
[2017-10-04] MEDS: amLODIPine 5 MG TAB PO (09:12)
[2017-10-04] MEDS: SENNA 8.6 MG TAB (SENOKOT) PO (09:12)
[2017-10-04] MEDS: AMIODARONE 200 MG TAB (PACERONE) PO (09:12)
[2017-10-04] MEDS: FUROSEMIDE 40 MG TAB PO (09:13)
[2017-10-04] MEDS: OLOPATADINE 0.1% OPHTH SOL 5ML(PATANOL) OU (09:13)
== END 2017-10-04 15:00 | disposition home health service (06) | DRG 982 ==
LOC: M MS5PR 09-22 16:56 → M ED 18:15 → M ED INP 20:24 → M MS4PR 22:55 → M MSPAV 23:07
PROC: 0LQM0ZZ Repair Left Upper Leg Tendon, Open Approach (ICD-10-PCS; principal; 2017-09-22 16:53)
DX: N17.9 Acute kidney failure, unspecified (principal); D62 Acute posthemorrhagic anemia; S76.112A Strain of left quadriceps muscle, fascia and tendon, initial encounter; X58.XXXA Exposure to other specified factors, initial encounter; Y92.9 Unspecified place or not applicable; Y93.9 Activity, unspecified; S76.192A Other specified injury of left quadriceps muscle, fascia and tendon, initial encounter; I48.91 Unspecified atrial fibrillation; E11.9 Type 2 diabetes mellitus without complications; E78.5 Hyperlipidemia, unspecified; I25.10 Atherosclerotic heart disease of native coronary artery without angina pectoris; I50.9 Heart failure, unspecified; K42.9 Umbilical hernia without obstruction or gangrene; Z95.0 Presence of cardiac pacemaker; Z79.899 Other long term (current) drug therapy; I11.0 Hypertensive heart disease with heart failure; E86.0 Dehydration

== ENCOUNTER → 2017-09-18 | Outpatient (CLI) | payer MEDICARE ==
[~2017-09-18] MED LIST changes: +TRAM50TA2 PO; +[UNRECOGNIZED DRUG - CODE] XX
[2017-09-18 18:43] LABS: CALCIUM LEVEL 8.6 MG/DL (8.8-10.2); CREATININE FOR GFR 3.16 MG/DL (0.70-1.30); GLOMERULAR FILTRATION RATE 20.5 (>42)
[2017-09-18 18:47] LABS: INR 1.88
== END ==
LOC: M LAB 17:53
PROVIDERS: ATTEND Orthopaedic Surgery
DX: Z01.812 Encounter for preprocedural laboratory examination (principal); S76.112A Strain of left quadriceps muscle, fascia and tendon, initial encounter; X58.XXXA Exposure to other specified factors, initial encounter; Y92.9 Unspecified place or not applicable; Y93.9 Activity, unspecified

== ENCOUNTER → 2017-10-23 | Outpatient (CLI) | payer MEDICARE ==
[2017-10-23 10:57] LABS: INR 1.36; PROTHROMBIN TIME 17.1 SECONDS (12.4-14.5)
== END ==
LOC: M LAB 10:07
DX: I48.0 Paroxysmal atrial fibrillation (principal)
CPT/HCPCS: 85610

== ENCOUNTER → 2017-10-31 | Outpatient (CLI) | payer MEDICARE ==
[2017-10-31 09:59] LABS: INR 2.09; PROTHROMBIN TIME 24.2 SECONDS (12.4-14.5)
== END ==
LOC: M LAB 08:49
DX: I48.0 Paroxysmal atrial fibrillation (principal)
CPT/HCPCS: 85610

== ENCOUNTER → 2017-11-21 | Outpatient (CLI) | payer MEDICARE ==
[2017-11-21 10:09] LABS: INR 2.23; PROTHROMBIN TIME 25.5 SECONDS (12.4-14.5)
== END ==
LOC: M LAB 09:07
DX: I48.0 Paroxysmal atrial fibrillation (principal); Z51.81 Encounter for therapeutic drug level monitoring; Z79.01 Long term (current) use of anticoagulants

== ENCOUNTER → 2017-11-21 | Outpatient (CLI) | payer MEDICARE ==
[2017-11-21 09:55] LABS: BASO % 0.6 % (0.0-1.0); EOS # 0.2 10^3/uL (0.0-0.50); EOS % 3.2 % (0.0-3.0); HEMATOCRIT 31.8 % (42.0-52.0); HEMOGLOBIN 10.7 g/dl (14.0-18.0); IMMATURE GRANULOCYTE % 0.6 % (0-3.0); LYMPH # 1.2 10^3/uL (1.5-4.5); LYMPH % 16.5 % (24.0-44.0); MEAN CORPUSCULAR HEMOGLOBIN 30.8 pg (27.0-33.0); MEAN CORPUSCULAR HGB CONC 33.6 g/dl (32.0-36.5); MEAN CORPUSCULAR VOLUME 91.6 fl (80.0-96.0); MONO # 0.5 10^3/uL (0.0-0.8); MONO % 7.6 % (0.0-5.0); NEUTROPHILS # 5.1 10^3/uL (1.8-7.7); NEUTROPHILS % 71.5 % (36.0-66.0); PLATELET COUNT, AUTOMATED 244 10^3/uL (150-450); RED BLOOD COUNT 3.47 10^6/uL (4.30-6.10); RED CELL DISTRIBUTION WIDTH 13.6 % (11.5-14.5); WHITE BLOOD COUNT 7.1 10^3/uL (4.0-10.0)
[2017-11-21 10:09] LABS: ANION GAP 7 MEQ/L (8-16); BLOOD UREA NITROGEN 21 MG/DL (7-18); CALCIUM LEVEL 8.3 MG/DL (8.8-10.2); CARBON DIOXIDE LEVEL 32 MEQ/L (21-32); CHLORIDE LEVEL 100 MEQ/L (98-107); CREATININE FOR GFR 1.04 MG/DL (0.70-1.30); GLOMERULAR FILTRATION RATE > 60.0 (>42); GLUCOSE, FASTING 182 MG/DL (70-100); POTASSIUM SERUM 3.6 MEQ/L (3.5-5.1); SODIUM LEVEL 139 MEQ/L (136-145)
[2017-11-21 10:11] LABS: ESTIMATED AVERAGE GLUCOSE 148 MG/DL (60-110); HEMOGLOBIN A1c 6.8 %
== END ==
LOC: M LAB 09:10
DX: E11.65 Type 2 diabetes mellitus with hyperglycemia (principal); I48.0 Paroxysmal atrial fibrillation; Z51.81 Encounter for therapeutic drug level monitoring; Z79.01 Long term (current) use of anticoagulants
CPT/HCPCS: 83036

== ENCOUNTER → 2017-12-19 | Outpatient (CLI) | payer MEDICARE | LOC: M LAB 09:17 | DX: I48.0 Paroxysmal atrial fibrillation (principal) | CPT/HCPCS: 85610 ==

== ENCOUNTER → 2018-02-14 | Outpatient (CLI) | payer MEDICARE ==
[2018-02-14 07:41] LABS: CHOLESTEROL LEVEL 131 MG/DL (<200); CHOLESTEROL RISK RATIO 2.847 (<5); HDL CHOLESTEROL 46 MG/DL (>40); LDL CHOLESTEROL 48.4 MG/DL (<100); NON-HDL-C 85 MG/DL; TRIGLYCERIDES LEVEL 183 MG/DL (<150)
[2018-02-14 07:48] LABS: CREATININE, URINE 25.6 MG/DL; MALB URINE SIEMENS 23.4 MG/L; MAU/CREAT RATIO 91.4 MCG/MG (0.0-30.0)
== END ==
LOC: M LAB 06:33
DX: E11.69 Type 2 diabetes mellitus with other specified complication (principal); I48.0 Paroxysmal atrial fibrillation; Z79.01 Long term (current) use of anticoagulants
CPT/HCPCS: 80061

== ENCOUNTER → 2018-02-14 | Outpatient (CLI) | payer MEDICARE ==
[2018-02-14 07:21] LABS: INR 1.94; PROTHROMBIN TIME 22.8 SECONDS (12.4-14.5)
== END ==
LOC: M LAB 06:38
DX: I48.0 Paroxysmal atrial fibrillation (principal); Z79.01 Long term (current) use of anticoagulants

== ENCOUNTER → 2018-03-01 | Outpatient (CLI) | payer MEDICARE ==
[2018-03-01 08:24] LABS: PROTHROMBIN TIME 25.2 SECONDS (12.4-14.5)
== END ==
LOC: M LAB 07:32
DX: I48.0 Paroxysmal atrial fibrillation (principal); Z79.01 Long term (current) use of anticoagulants
CPT/HCPCS: 85610

== ENCOUNTER → 2018-03-20 | Outpatient (CLI) | payer MEDICARE ==
[2018-03-20 12:15] LABS: PROTHROMBIN TIME 22.4 SECONDS (12.4-14.5)
== END ==
LOC: M LAB 11:35
DX: I48.0 Paroxysmal atrial fibrillation (principal)
CPT/HCPCS: 85610

== ENCOUNTER → 2018-04-02 | Outpatient (CLI) | payer MEDICARE ==
[2018-04-02 16:12] LABS: HEMATOCRIT 33.3 % (42.0-52.0); HEMOGLOBIN 11.5 g/dl (13.5-17.5); MEAN CORPUSCULAR HGB CONC 34.5 g/dl (32.0-36.5); MEAN CORPUSCULAR VOLUME 89.8 fl (80.0-96.0); PLATELET COUNT, AUTOMATED 252 10^3/uL (150-450); RED BLOOD COUNT 3.71 10^6/uL (4.30-6.10); RED CELL DISTRIBUTION WIDTH 13.6 % (11.5-14.5); WHITE BLOOD COUNT 7.5 10^3/uL (4.0-10.0)
[2018-04-02 16:22] LABS: INR 2.56; PROTHROMBIN TIME 28.6 SECONDS (12.4-14.5)
[2018-04-02 16:46] LABS: ALBUMIN/GLOBULIN RATIO 1.11 (1.00-1.93); ALKALINE PHOSPHATASE 77 U/L (45-117); ALT/SGPT 24 U/L (12-78); ANION GAP 8 MEQ/L (8-16); AST/SGOT 11 U/L (7-37); BILIRUBIN,TOTAL 0.5 MG/DL (0.2-1.0); BLOOD UREA NITROGEN 28 MG/DL (7-18); CALCIUM LEVEL 8.1 MG/DL (8.8-10.2); CARBON DIOXIDE LEVEL 29 MEQ/L (21-32); CHLORIDE LEVEL 106 MEQ/L (98-107); CREATININE FOR GFR 1.21 MG/DL (0.70-1.30); GLOMERULAR FILTRATION RATE > 60.0 (>42); GLUCOSE, FASTING 93 MG/DL (70-100); MAGNESIUM LEVEL 2.3 MG/DL (1.8-2.4); POTASSIUM SERUM 3.4 MEQ/L (3.5-5.1); SODIUM LEVEL 143 MEQ/L (136-145); TOTAL PROTEIN 7.6 GM/DL (6.4-8.2)
== END ==
LOC: M LAB 15:43
DX: I48.0 Paroxysmal atrial fibrillation (principal); Z95.0 Presence of cardiac pacemaker
CPT/HCPCS: 71046

== ENCOUNTER → 2018-04-10 | Outpatient (CLI) | payer MEDICARE ==
[2018-04-10 07:28] LABS: POTASSIUM SERUM 3.4 MEQ/L (3.5-5.1)
[2018-04-10 07:34] LABS: INR 2.36; PROTHROMBIN TIME 26.3 SECONDS (12.1-14.4)
== END ==
LOC: M LAB 06:42
DX: I48.0 Paroxysmal atrial fibrillation (principal)
CPT/HCPCS: 84132

== ENCOUNTER → 2018-04-24 | Outpatient (CLI) | payer MEDICARE ==
[2018-04-24 07:40] LABS: POTASSIUM SERUM 3.9 MEQ/L (3.5-5.1)
== END ==
LOC: M LAB 06:41
DX: E87.6 Hypokalemia (principal)
CPT/HCPCS: 84132

== ENCOUNTER → 2018-05-08 | Outpatient (CLI) | payer MEDICARE ==
[2018-05-08 07:11] LABS: ESTIMATED AVERAGE GLUCOSE 120 MG/DL (60-110); HEMOGLOBIN A1c 5.8 %
[2018-05-08 07:14] LABS: ANION GAP 8 MEQ/L (8-16); BLOOD UREA NITROGEN 20 MG/DL (7-18); CALCIUM LEVEL 8.1 MG/DL (8.8-10.2); CARBON DIOXIDE LEVEL 29 MEQ/L (21-32); CHLORIDE LEVEL 106 MEQ/L (98-107); CREATININE FOR GFR 1.18 MG/DL (0.70-1.30); GLOMERULAR FILTRATION RATE > 60.0 (>42); GLUCOSE, FASTING 108 MG/DL (70-100); SODIUM LEVEL 143 MEQ/L (136-145)
[2018-05-08 12:21] LABS: INR 2.69; PROTHROMBIN TIME 29.2 SECONDS (12.1-14.4)
== END ==
LOC: M LAB 06:28
DX: Z51.81 Encounter for therapeutic drug level monitoring (principal); E11.36 Type 2 diabetes mellitus with diabetic cataract; I48.0 Paroxysmal atrial fibrillation; Z79.01 Long term (current) use of anticoagulants
CPT/HCPCS: 83036

== ENCOUNTER → 2018-05-28 | Outpatient (CLI) | payer MEDICARE ==
[2018-05-28 15:24] LABS: INR 2.43; PROTHROMBIN TIME 26.9 SECONDS (12.1-14.4)
== END ==
LOC: M LAB 14:18
DX: Z51.81 Encounter for therapeutic drug level monitoring (principal); Z79.01 Long term (current) use of anticoagulants; I48.0 Paroxysmal atrial fibrillation
CPT/HCPCS: 85610

== ENCOUNTER → 2018-06-26 | Outpatient (CLI) | payer MEDICARE ==
[2018-06-26 10:29] LABS: INR 1.75; PROTHROMBIN TIME 20.8 SECONDS (12.1-14.4)
== END ==
LOC: M LAB 09:30
DX: I48.0 Paroxysmal atrial fibrillation (principal)
CPT/HCPCS: 85610

== ENCOUNTER → 2018-07-02 | Outpatient (REF) | payer MEDICARE | LOC: M LAB REF 17:06 | DX: L03.116 Cellulitis of left lower limb (principal) | CPT/HCPCS: 87254 ==

== ENCOUNTER 2018-07-04 11:08 | Inpatient (IN) | payer MEDICARE ==
[2018-07-04 12:30] LABS: BASO % 0.3 % (0.0-1.0); EOS # 0.1 10^3/uL (0.0-0.50); EOS % 1.1 % (0.0-3.0); HEMATOCRIT 31.1 % (42.0-52.0); HEMOGLOBIN 10.1 g/dl (13.5-17.5); IMMATURE GRANULOCYTE % 1.1 % (0-3.0); LYMPH # 1.5 10^3/uL (1.5-4.5); LYMPH % 16.7 % (24.0-44.0); MEAN CORPUSCULAR HEMOGLOBIN 31.2 pg (27.0-33.0); MEAN CORPUSCULAR HGB CONC 32.5 g/dl (32.0-36.5); MONO # 0.7 10^3/uL (0.0-0.8); MONO % 7.8 % (0.0-5.0); NEUTROPHILS # 6.6 10^3/uL (1.8-7.7); PLATELET COUNT, AUTOMATED 370 10^3/uL (150-450); RED BLOOD COUNT 3.24 10^6/uL (4.30-6.10); RED CELL DISTRIBUTION WIDTH 13.8 % (11.5-14.5)
[2018-07-04] MEDS: IPRATROPIUM 0.5MG/ALBUTEROL 2.5MG INH SOL UD 3ML (DUONEB)(J7620) NEB ×2 (12:50→21:57)
[2018-07-04 12:54] LABS: ERYTHROCYTE SEDIMENTATION RATE 106 mm/hr (0-20)
[2018-07-04 13:49] LABS: ANION GAP 11 MEQ/L (8-16); BLOOD UREA NITROGEN 26 MG/DL (7-18); C REACTIVE PROTEIN QUANTITATIV 3.15 MG/DL (0.00-0.30); CALCIUM LEVEL 8.6 MG/DL (8.8-10.2); CARBON DIOXIDE LEVEL 28 MEQ/L (21-32); CHLORIDE LEVEL 104 MEQ/L (98-107); CREATININE FOR GFR 1.29 MG/DL (0.70-1.30); GLOMERULAR FILTRATION RATE 57.6 (>42); GLUCOSE, FASTING 79 MG/DL (70-100); NT-PRO BNP 730 PG/ML (<450); POTASSIUM SERUM 4.1 MEQ/L (3.5-5.1); SODIUM LEVEL 143 MEQ/L (136-145); TROPONIN I < 0.02 NG/ML (< 0.10)
[2018-07-04] MEDS: cefTRIAXone SOD 1 GM in D5W MINI-BAG PLUS 50 ML IV (15:00)
[2018-07-04] MEDS ORDERED: DEXTROSE 50% 50 ML SYRINGE IV (15:30)
[2018-07-04] MEDS ORDERED: GLUCAGON FOR INJ 1 MG VIAL (J1610) SC (15:30)
[2018-07-04] MEDS ORDERED: IPRATROPIUM 0.5MG/ALBUTEROL 2.5MG INH SOL UD 3ML (DUONEB)(J7620) NEB (15:30)
[2018-07-04] MEDS ORDERED: GLUCOSE 4 GM CHEW TABLET PO (15:30)
[2018-07-04] MEDS ORDERED: traMADol 50 MG TAB PO (15:30)
[2018-07-04] MEDS ORDERED: ACETAMINOPHEN TAB 650MG DOSE (2X325MG) PO (15:45)
[2018-07-04] MEDS: BACLOFEN 10 MG TAB PO ×2 (16:43→20:37)
[2018-07-04 16:54] LABS: PROTHROMBIN TIME 42.3 SECONDS (12.1-14.4)
[2018-07-04] MEDS ORDERED: VANCOMYCIN HCL 1,000 MG, VIAL MATE ADAPTER 1 EACH in D5W 250 ML IV (17:00)
[2018-07-04] MEDS: HumaLOG INSULIN (NovoLOG) PER UNIT SC ×2 (17:30→20:43)
[2018-07-04] MEDS: LACTOBACILLUS ACIDOPHILUS CAP (BACID) PO ×2 (18:33→20:37)
[2018-07-04] MEDS: VANCOMYCIN HCL 1,000 MG, VIAL MATE ADAPTER 1 EACH in D5W 250 ML IV ×2 (18:33→20:36)
[2018-07-04 20:21] LABS: BEDSIDE GLUCOSE 159 MG/DL (83-110)
[2018-07-04] MEDS: SENOKOT S TAB PO (20:36)
[2018-07-04] MEDS: amLODIPine 5 MG TAB PO (20:37)
[2018-07-04] MEDS: ATENOLOL 50 MG TAB PO (20:37)
[2018-07-04] MEDS: ATORVASTATIN 20 MG TAB PO (20:38)
[2018-07-04] MEDS: LATANOPROST 0.005% OPHTH SOLN 2.5 ML OU (23:20)
[2018-07-05] MEDS: CEFEPIME HCL 2 GM in D5W MINI-BAG PLUS 50 ML IV ×3 (00:08→20:20)
[2018-07-05] MEDS: IPRATROPIUM 0.5MG/ALBUTEROL 2.5MG INH SOL UD 3ML (DUONEB)(J7620) NEB ×4 (01:34→20:41)
[2018-07-05 06:31] LABS: HEMATOCRIT 29.6 % (42.0-52.0); HEMOGLOBIN 9.5 g/dl (13.5-17.5); MEAN CORPUSCULAR HGB CONC 32.1 g/dl (32.0-36.5); MEAN CORPUSCULAR VOLUME 96.7 fl (80.0-96.0); PLATELET COUNT, AUTOMATED 347 10^3/uL (150-450); RED BLOOD COUNT 3.06 10^6/uL (4.30-6.10); WHITE BLOOD COUNT 8.1 10^3/uL (4.0-10.0)
[2018-07-05 06:41] LABS: INR 3.45; PROTHROMBIN TIME 35.6 SECONDS (12.1-14.4)
[2018-07-05 07:03] LABS: ALBUMIN 2.9 GM/DL (3.2-5.2); ALBUMIN/GLOBULIN RATIO 0.64 (1.00-1.93); ALKALINE PHOSPHATASE 85 U/L (45-117); ALT/SGPT 33 U/L (12-78); ANION GAP 7 MEQ/L (8-16); AST/SGOT 13 U/L (7-37); BILIRUBIN,TOTAL 0.4 MG/DL (0.2-1.0); BLOOD UREA NITROGEN 25 MG/DL (7-18); C REACTIVE PROTEIN QUANTITATIV 2.02 MG/DL (0.00-0.30); CALCIUM LEVEL 8.4 MG/DL (8.8-10.2); CARBON DIOXIDE LEVEL 30 MEQ/L (21-32); CHLORIDE LEVEL 103 MEQ/L (98-107); CREATININE FOR GFR 1.24 MG/DL (0.70-1.30); FREE THYROXINE INDEX 3.9 % (1.4-3.8); GLOMERULAR FILTRATION RATE > 60.0 (>42); GLUCOSE, FASTING 98 MG/DL (70-100); POTASSIUM SERUM 4.2 MEQ/L (3.5-5.1); SODIUM LEVEL 140 MEQ/L (136-145); T UPTAKE 40 % (33-40); THYROXINE (T4) 9.7 UG/DL (4.5-12.0); TOTAL PROTEIN 7.4 GM/DL (6.4-8.2)
[2018-07-05] MEDS: HumaLOG INSULIN (NovoLOG) PER UNIT SC ×4 (07:30→20:21)
[2018-07-05] MEDS: ATENOLOL 50 MG TAB PO ×2 (08:26→20:20)
[2018-07-05] MEDS: AMIODARONE 200 MG TAB (PACERONE) PO (08:26)
[2018-07-05] MEDS: FUROSEMIDE 40 MG TAB PO (08:26)
[2018-07-05] MEDS: LACTOBACILLUS ACIDOPHILUS CAP (BACID) PO ×3 (08:26→20:21)
[2018-07-05] MEDS: SENOKOT S TAB PO ×2 (08:26→20:21)
[2018-07-05] MEDS: BACLOFEN 10 MG TAB PO ×3 (08:27→20:21)
[2018-07-05] MEDS: POTASSIUM CHLORIDE 10 MEQ SR TABLET PO (08:27)
[2018-07-05] MEDS: LOSARTAN 50 MG TAB PO (08:27)
[2018-07-05] MEDS: OLOPATADINE 0.1% OPHTH SOL 5ML(PATANOL) OU (10:54)
[2018-07-05] MEDS: VANCOMYCIN HCL 1,000 MG, VIAL MATE ADAPTER 1 EACH in D5W 250 ML IV (10:54)
[2018-07-05 16:47] LABS: BEDSIDE GLUCOSE 121 MG/DL (83-110)
[2018-07-05] MEDS ORDERED: WARFARIN SOD 2.5 MG TAB PO (17:00)
[2018-07-05] MEDS: WARFARIN SOD 2.5 MG TAB PO (17:05)
[2018-07-05] MEDS: amLODIPine 5 MG TAB PO (20:21)
[2018-07-05] MEDS: ATORVASTATIN 20 MG TAB PO (20:21)
[2018-07-05] MEDS: LATANOPROST 0.005% OPHTH SOLN 2.5 ML OU (20:22)
[2018-07-06] MEDS: IPRATROPIUM 0.5MG/ALBUTEROL 2.5MG INH SOL UD 3ML (DUONEB)(J7620) NEB ×4 (01:03→20:14)
[2018-07-06] MEDS: VANCOMYCIN HCL 1,000 MG, VIAL MATE ADAPTER 1 EACH in D5W 250 ML IV (04:32)
[2018-07-06 06:42] LABS: HEMATOCRIT 28.6 % (42.0-52.0); HEMOGLOBIN 9.5 g/dl (13.5-17.5); MEAN CORPUSCULAR HEMOGLOBIN 31.3 pg (27.0-33.0); MEAN CORPUSCULAR HGB CONC 33.2 g/dl (32.0-36.5); MEAN CORPUSCULAR VOLUME 94.1 fl (80.0-96.0); PLATELET COUNT, AUTOMATED 323 10^3/uL (150-450); RED BLOOD COUNT 3.04 10^6/uL (4.30-6.10); RED CELL DISTRIBUTION WIDTH 13.9 % (11.5-14.5); WHITE BLOOD COUNT 6.6 10^3/uL (4.0-10.0)
[2018-07-06 07:05] LABS: INR 2.49; PROTHROMBIN TIME 27.4 SECONDS (12.1-14.4)
[2018-07-06 07:15] LABS: ALBUMIN 2.6 GM/DL (3.2-5.2); ALBUMIN/GLOBULIN RATIO 0.57 (1.00-1.93); ALKALINE PHOSPHATASE 88 U/L (45-117); ALT/SGPT 29 U/L (12-78); ANION GAP 5 MEQ/L (8-16); AST/SGOT 12 U/L (7-37); BILIRUBIN,TOTAL 0.5 MG/DL (0.2-1.0); BLOOD UREA NITROGEN 17 MG/DL (7-18); C REACTIVE PROTEIN QUANTITATIV 1.21 MG/DL (0.00-0.30); CALCIUM LEVEL 7.8 MG/DL (8.8-10.2); CARBON DIOXIDE LEVEL 29 MEQ/L (21-32); CHLORIDE LEVEL 105 MEQ/L (98-107); CREATININE FOR GFR 1.23 MG/DL (0.70-1.30); GLOMERULAR FILTRATION RATE > 60.0 (>42); GLUCOSE, FASTING 146 MG/DL (70-100); POTASSIUM SERUM 4.1 MEQ/L (3.5-5.1); SODIUM LEVEL 139 MEQ/L (136-145); TOTAL PROTEIN 7.2 GM/DL (6.4-8.2)
[2018-07-06] MEDS: SENOKOT S TAB PO ×2 (08:13→21:06)
[2018-07-06] MEDS: BACLOFEN 10 MG TAB PO ×3 (08:13→21:06)
[2018-07-06] MEDS: HumaLOG INSULIN (NovoLOG) PER UNIT SC ×4 (08:13→21:00)
[2018-07-06] MEDS: LACTOBACILLUS ACIDOPHILUS CAP (BACID) PO ×3 (08:14→21:06)
[2018-07-06] MEDS: ATENOLOL 50 MG TAB PO ×2 (08:15→21:08)
[2018-07-06] MEDS: AMIODARONE 200 MG TAB (PACERONE) PO (08:15)
[2018-07-06] MEDS: LOSARTAN 50 MG TAB PO (08:15)
[2018-07-06] MEDS: FUROSEMIDE 40 MG TAB PO (08:16)
[2018-07-06] MEDS: POTASSIUM CHLORIDE 10 MEQ SR TABLET PO (08:16)
[2018-07-06] MEDS: OLOPATADINE 0.1% OPHTH SOL 5ML(PATANOL) OU (08:17)
[2018-07-06] MEDS: CEFEPIME HCL 2 GM in D5W MINI-BAG PLUS 50 ML IV (08:17)
[2018-07-06] MEDS ORDERED: WARFARIN SOD 5 MG TAB PO (17:00)
[2018-07-06] MEDS: WARFARIN SOD 2.5 MG TAB PO (17:05)
[2018-07-06] MEDS: ATORVASTATIN 20 MG TAB PO (21:06)
[2018-07-06] MEDS: DOXYCYCLINE HYCLATE 100 MG TAB PO (21:06)
[2018-07-06] MEDS: amLODIPine 5 MG TAB PO (21:07)
[2018-07-06] MEDS: LATANOPROST 0.005% OPHTH SOLN 2.5 ML OU (21:09)
[2018-07-07] MEDS: IPRATROPIUM 0.5MG/ALBUTEROL 2.5MG INH SOL UD 3ML (DUONEB)(J7620) NEB ×4 (01:37→20:40)
[2018-07-07 05:50] LABS: HEMATOCRIT 29.3 % (42.0-52.0); HEMOGLOBIN 9.7 g/dl (13.5-17.5); MEAN CORPUSCULAR HEMOGLOBIN 31.7 pg (27.0-33.0); MEAN CORPUSCULAR HGB CONC 33.1 g/dl (32.0-36.5); MEAN CORPUSCULAR VOLUME 95.8 fl (80.0-96.0); PLATELET COUNT, AUTOMATED 324 10^3/uL (150-450); RED BLOOD COUNT 3.06 10^6/uL (4.30-6.10); WHITE BLOOD COUNT 6.5 10^3/uL (4.0-10.0)
[2018-07-07 06:09] LABS: ALBUMIN 2.8 GM/DL (3.2-5.2); ALBUMIN/GLOBULIN RATIO 0.64 (1.00-1.93); ALKALINE PHOSPHATASE 91 U/L (45-117); ALT/SGPT 31 U/L (12-78); ANION GAP 8 MEQ/L (8-16); AST/SGOT 14 U/L (7-37); BILIRUBIN,TOTAL 0.4 MG/DL (0.2-1.0); BLOOD UREA NITROGEN 20 MG/DL (7-18); CALCIUM LEVEL 8.3 MG/DL (8.8-10.2); CARBON DIOXIDE LEVEL 29 MEQ/L (21-32); CHLORIDE LEVEL 104 MEQ/L (98-107); GLOMERULAR FILTRATION RATE 57.1 (>42); GLUCOSE, FASTING 128 MG/DL (70-100); POTASSIUM SERUM 3.9 MEQ/L (3.5-5.1); SODIUM LEVEL 141 MEQ/L (136-145); TOTAL PROTEIN 7.2 GM/DL (6.4-8.2)
[2018-07-07 06:10] LABS: INR 2.14; PROTHROMBIN TIME 24.3 SECONDS (12.1-14.4)
[2018-07-07] MEDS: LACTOBACILLUS ACIDOPHILUS CAP (BACID) PO ×3 (08:53→20:41)
[2018-07-07] MEDS: POTASSIUM CHLORIDE 10 MEQ SR TABLET PO (08:53)
[2018-07-07] MEDS: BACLOFEN 10 MG TAB PO ×3 (08:53→20:43)
[2018-07-07] MEDS: AMIODARONE 200 MG TAB (PACERONE) PO (08:54)
[2018-07-07] MEDS: ATENOLOL 50 MG TAB PO ×2 (08:54→20:42)
[2018-07-07] MEDS: SENOKOT S TAB PO ×2 (08:54→20:43)
[2018-07-07] MEDS: FUROSEMIDE 40 MG TAB PO (08:54)
[2018-07-07] MEDS: DOXYCYCLINE HYCLATE 100 MG TAB PO ×2 (08:54→20:41)
[2018-07-07] MEDS: LOSARTAN 50 MG TAB PO (08:54)
[2018-07-07] MEDS: OLOPATADINE 0.1% OPHTH SOL 5ML(PATANOL) OU (08:55)
[2018-07-07] MEDS: HumaLOG INSULIN (NovoLOG) PER UNIT SC ×4 (08:55→20:43)
[2018-07-07 11:43] LABS: BEDSIDE GLUCOSE 168 MG/DL (83-110)
[2018-07-07 11:43] LABS: BEDSIDE GLUCOSE 72 MG/DL (83-110)
[2018-07-07 11:43] LABS: BEDSIDE GLUCOSE 153 MG/DL (83-110)
[2018-07-07 11:44] LABS: BEDSIDE GLUCOSE 158 MG/DL (83-110)
[2018-07-07 11:44] LABS: BEDSIDE GLUCOSE 129 MG/DL (83-110)
[2018-07-07 11:44] LABS: BEDSIDE GLUCOSE 204 MG/DL (83-110)
[2018-07-07 11:44] LABS: BEDSIDE GLUCOSE 148 MG/DL (83-110)
[2018-07-07 16:38] LABS: BEDSIDE GLUCOSE 148 MG/DL (83-110)
[2018-07-07] MEDS: WARFARIN SOD 5 MG TAB PO (16:51)
[2018-07-07 19:57] LABS: BEDSIDE GLUCOSE 192 MG/DL (83-110)
[2018-07-07] MEDS: amLODIPine 5 MG TAB PO (20:42)
[2018-07-07] MEDS: ATORVASTATIN 20 MG TAB PO (20:43)
[2018-07-07] MEDS: LATANOPROST 0.005% OPHTH SOLN 2.5 ML OU (20:44)
[2018-07-08] MEDS: IPRATROPIUM 0.5MG/ALBUTEROL 2.5MG INH SOL UD 3ML (DUONEB)(J7620) NEB ×4 (02:10→20:22)
[2018-07-08 06:43] LABS: HEMATOCRIT 31.2 % (42.0-52.0); HEMOGLOBIN 10.3 g/dl (13.5-17.5); MEAN CORPUSCULAR HEMOGLOBIN 31.9 pg (27.0-33.0); MEAN CORPUSCULAR VOLUME 96.6 fl (80.0-96.0); PLATELET COUNT, AUTOMATED 367 10^3/uL (150-450); RED BLOOD COUNT 3.23 10^6/uL (4.30-6.10); RED CELL DISTRIBUTION WIDTH 14.2 % (11.5-14.5); WHITE BLOOD COUNT 6.4 10^3/uL (4.0-10.0)
[2018-07-08 06:54] LABS: INR 2.05; PROTHROMBIN TIME 23.5 SECONDS (12.1-14.4)
[2018-07-08 06:58] LABS: ALBUMIN 2.9 GM/DL (3.2-5.2); ALBUMIN/GLOBULIN RATIO 0.62 (1.00-1.93); ALKALINE PHOSPHATASE 99 U/L (45-117); ALT/SGPT 31 U/L (12-78); ANION GAP 5 MEQ/L (8-16); AST/SGOT 15 U/L (7-37); BILIRUBIN,TOTAL 0.4 MG/DL (0.2-1.0); BLOOD UREA NITROGEN 18 MG/DL (7-18); CARBON DIOXIDE LEVEL 31 MEQ/L (21-32); CHLORIDE LEVEL 104 MEQ/L (98-107); CREATININE FOR GFR 1.18 MG/DL (0.70-1.30); GLOMERULAR FILTRATION RATE > 60.0 (>42); GLUCOSE, FASTING 169 MG/DL (70-100); SODIUM LEVEL 140 MEQ/L (136-145); TOTAL PROTEIN 7.6 GM/DL (6.4-8.2)
[2018-07-08 07:02] LABS: C REACTIVE PROTEIN QUANTITATIV 0.62 MG/DL (0.00-0.30)
[2018-07-08] MEDS: LACTOBACILLUS ACIDOPHILUS CAP (BACID) PO ×3 (07:59→20:53)
[2018-07-08] MEDS: HumaLOG INSULIN (NovoLOG) PER UNIT SC ×4 (07:59→20:54)
[2018-07-08] MEDS: POTASSIUM CHLORIDE 10 MEQ SR TABLET PO (07:59)
[2018-07-08] MEDS: FUROSEMIDE 40 MG TAB PO (08:00)
[2018-07-08] MEDS: DOXYCYCLINE HYCLATE 100 MG TAB PO ×2 (08:00→20:54)
[2018-07-08] MEDS: BACLOFEN 10 MG TAB PO ×3 (08:00→20:53)
[2018-07-08] MEDS: LOSARTAN 50 MG TAB PO (08:02)
[2018-07-08] MEDS: ATENOLOL 50 MG TAB PO ×2 (08:02→20:53)
[2018-07-08] MEDS: AMIODARONE 200 MG TAB (PACERONE) PO (08:02)
[2018-07-08] MEDS: OLOPATADINE 0.1% OPHTH SOL 5ML(PATANOL) OU (08:02)
[2018-07-08] MEDS: SENOKOT S TAB PO ×2 (08:03→20:53)
[2018-07-08 11:53] LABS: BEDSIDE GLUCOSE 123 MG/DL (83-110)
[2018-07-08 17:06] LABS: BEDSIDE GLUCOSE 146 MG/DL (83-110)
[2018-07-08] MEDS: WARFARIN SOD 5 MG TAB PO (18:26)
[2018-07-08 20:02] LABS: BEDSIDE GLUCOSE 150 MG/DL (83-110)
[2018-07-08] MEDS: LATANOPROST 0.005% OPHTH SOLN 2.5 ML OU (20:54)
[2018-07-08] MEDS: ATORVASTATIN 20 MG TAB PO (20:54)
[2018-07-08] MEDS: amLODIPine 5 MG TAB PO (20:54)
[2018-07-09] MEDS: IPRATROPIUM 0.5MG/ALBUTEROL 2.5MG INH SOL UD 3ML (DUONEB)(J7620) NEB ×2 (01:47→08:02)
[2018-07-09 06:56] LABS: HEMATOCRIT 32.1 % (42.0-52.0); HEMOGLOBIN 10.3 g/dl (13.5-17.5); MEAN CORPUSCULAR HEMOGLOBIN 31.1 pg (27.0-33.0); MEAN CORPUSCULAR HGB CONC 32.1 g/dl (32.0-36.5); PLATELET COUNT, AUTOMATED 350 10^3/uL (150-450); RED BLOOD COUNT 3.31 10^6/uL (4.30-6.10); RED CELL DISTRIBUTION WIDTH 14.4 % (11.5-14.5); WHITE BLOOD COUNT 7.3 10^3/uL (4.0-10.0)
[2018-07-09 07:05] LABS: INR 1.96; PROTHROMBIN TIME 22.7 SECONDS (12.1-14.4)
[2018-07-09 07:14] LABS: ESTIMATED AVERAGE GLUCOSE 131 MG/DL (60-110); HEMOGLOBIN A1c 6.2 %
[2018-07-09 07:21] LABS: ALBUMIN 3.2 GM/DL (3.2-5.2); ALBUMIN/GLOBULIN RATIO 0.74 (1.00-1.93); ALKALINE PHOSPHATASE 99 U/L (45-117); ALT/SGPT 30 U/L (12-78); ANION GAP 6 MEQ/L (8-16); AST/SGOT 16 U/L (7-37); BILIRUBIN,TOTAL 0.4 MG/DL (0.2-1.0); BLOOD UREA NITROGEN 18 MG/DL (7-18); C REACTIVE PROTEIN QUANTITATIV 0.48 MG/DL (0.00-0.30); CALCIUM LEVEL 8.6 MG/DL (8.8-10.2); CARBON DIOXIDE LEVEL 31 MEQ/L (21-32); CHLORIDE LEVEL 105 MEQ/L (98-107); GLOMERULAR FILTRATION RATE > 60.0 (>42); GLUCOSE, FASTING 135 MG/DL (70-100); POTASSIUM SERUM 3.8 MEQ/L (3.5-5.1); SODIUM LEVEL 142 MEQ/L (136-145); TOTAL PROTEIN 7.5 GM/DL (6.4-8.2)
[2018-07-09] MEDS: SENOKOT S TAB PO (08:48)
[2018-07-09] MEDS: POTASSIUM CHLORIDE 10 MEQ SR TABLET PO (08:48)
[2018-07-09] MEDS: FUROSEMIDE 40 MG TAB PO (08:49)
[2018-07-09] MEDS: DOXYCYCLINE HYCLATE 100 MG TAB PO (08:49)
[2018-07-09] MEDS: AMIODARONE 200 MG TAB (PACERONE) PO (08:49)
[2018-07-09] MEDS: LOSARTAN 50 MG TAB PO (08:49)
[2018-07-09] MEDS: LACTOBACILLUS ACIDOPHILUS CAP (BACID) PO (08:49)
[2018-07-09] MEDS: ATENOLOL 50 MG TAB PO (08:49)
[2018-07-09] MEDS: BACLOFEN 10 MG TAB PO (08:49)
[2018-07-09] MEDS: HumaLOG INSULIN (NovoLOG) PER UNIT SC (08:50)
[2018-07-09] MEDS: OLOPATADINE 0.1% OPHTH SOL 5ML(PATANOL) OU (09:00)
== END 2018-07-09 10:59 | disposition home or self-care (01) | DRG 603 ==
LOC: M ED 11:08 → M ED INP 16:30 → M MSPAV 17:41
DX: L03.116 Cellulitis of left lower limb (principal); I48.91 Unspecified atrial fibrillation; E11.9 Type 2 diabetes mellitus without complications; E78.5 Hyperlipidemia, unspecified; N18.3 Chronic kidney disease, stage 3 (moderate); I27.20 Pulmonary hypertension, unspecified; I25.10 Atherosclerotic heart disease of native coronary artery without angina pectoris; Z79.899 Other long term (current) drug therapy; Z79.01 Long term (current) use of anticoagulants; I50.9 Heart failure, unspecified; I11.0 Hypertensive heart disease with heart failure; E66.9 Obesity, unspecified; Z68.34 Body mass index [BMI] 34.0-34.9, adult; H40.9 Unspecified glaucoma; Z79.4 Long term (current) use of insulin; R91.8 Other nonspecific abnormal finding of lung field

== ENCOUNTER → 2018-07-24 | Outpatient (CLI) | payer MEDICARE ==
[2018-07-24 07:46] LABS: PROTHROMBIN TIME 49.2 SECONDS (12.1-14.4)
== END ==
LOC: M LAB 06:37
DX: I48.0 Paroxysmal atrial fibrillation (principal)
CPT/HCPCS: 85610

== ENCOUNTER → 2018-07-26 | Outpatient (CLI) | payer MEDICARE ==
[2018-07-26 07:36] LABS: INR 3.68; PROTHROMBIN TIME 37.4 SECONDS (12.1-14.4)
== END ==
LOC: M LAB 06:56
DX: Z79.01 Long term (current) use of anticoagulants (principal); I48.0 Paroxysmal atrial fibrillation
CPT/HCPCS: 85610

== ENCOUNTER → 2018-08-02 | Outpatient (CLI) | payer MEDICARE ==
[2018-08-02 07:22] LABS: BASO # 0.1 10^3/uL (0.0-0.2); BASO % 0.6 % (0.0-1.0); EOS # 0.2 10^3/uL (0.0-0.50); EOS % 2.9 % (0.0-3.0); HEMATOCRIT 34.1 % (42.0-52.0); HEMOGLOBIN 11.2 g/dl (13.5-17.5); IMMATURE GRANULOCYTE % 0.5 % (0-3.0); LYMPH # 2.1 10^3/uL (1.5-4.5); MEAN CORPUSCULAR HGB CONC 32.8 g/dl (32.0-36.5); MEAN CORPUSCULAR VOLUME 97.4 fl (80.0-96.0); MONO # 0.6 10^3/uL (0.0-0.8); MONO % 7.9 % (0.0-5.0); NEUTROPHILS # 4.9 10^3/uL (1.8-7.7); NEUTROPHILS % 62.1 % (36.0-66.0); PLATELET COUNT, AUTOMATED 258 10^3/uL (150-450); RED CELL DISTRIBUTION WIDTH 14.4 % (11.5-14.5); WHITE BLOOD COUNT 7.9 10^3/uL (4.0-10.0)
[2018-08-02 07:38] LABS: ESTIMATED AVERAGE GLUCOSE 131 MG/DL (60-110); HEMOGLOBIN A1c 6.2 %
[2018-08-02 07:53] LABS: ALBUMIN 3.7 GM/DL (3.2-5.2); ALBUMIN/GLOBULIN RATIO 1.03 (1.00-1.93); ALKALINE PHOSPHATASE 93 U/L (45-117); ALT/SGPT 33 U/L (12-78); ANION GAP 6 MEQ/L (8-16); AST/SGOT 17 U/L (7-37); BILIRUBIN,TOTAL 0.5 MG/DL (0.2-1.0); BLOOD UREA NITROGEN 20 MG/DL (7-18); CALCIUM LEVEL 8.6 MG/DL (8.8-10.2); CARBON DIOXIDE LEVEL 30 MEQ/L (21-32); CHLORIDE LEVEL 105 MEQ/L (98-107); CHOLESTEROL LEVEL 166 MG/DL (<200); CHOLESTEROL RISK RATIO 3.018 (<5); CREATININE FOR GFR 1.24 MG/DL (0.70-1.30); GLOMERULAR FILTRATION RATE > 60.0 (>42); GLUCOSE, FASTING 106 MG/DL (70-100); HDL CHOLESTEROL 55 MG/DL (>40); LDL CHOLESTEROL 65 MG/DL (<100); NON-HDL-C 111 MG/DL; POTASSIUM SERUM 4.2 MEQ/L (3.5-5.1); SODIUM LEVEL 141 MEQ/L (136-145); TOTAL PROTEIN 7.3 GM/DL (6.4-8.2); TRIGLYCERIDES LEVEL 232 MG/DL (<150)
== END ==
LOC: M LAB 06:59
DX: E11.69 Type 2 diabetes mellitus with other specified complication (principal); I48.0 Paroxysmal atrial fibrillation; Z51.81 Encounter for therapeutic drug level monitoring; Z79.01 Long term (current) use of anticoagulants
CPT/HCPCS: 80053

== ENCOUNTER → 2018-08-02 | Outpatient (CLI) | payer MEDICARE ==
[2018-08-02 07:36] LABS: INR 2.65; PROTHROMBIN TIME 28.8 SECONDS (12.1-14.4)
== END ==
LOC: M LAB 06:57
DX: I48.0 Paroxysmal atrial fibrillation (principal); Z51.81 Encounter for therapeutic drug level monitoring; Z79.01 Long term (current) use of anticoagulants

== ENCOUNTER → 2018-08-27 | Outpatient (CLI) | payer MEDICARE ==
[2018-08-27 11:49] LABS: BASO % 0.5 % (0.0-1.0); EOS # 0.1 10^3/uL (0.0-0.50); EOS % 1.5 % (0.0-3.0); HEMATOCRIT 34.4 % (42.0-52.0); HEMOGLOBIN 11.5 g/dl (13.5-17.5); IMMATURE GRANULOCYTE % 0.5 % (0-3.0); LYMPH # 2.2 10^3/uL (1.5-4.5); MEAN CORPUSCULAR HEMOGLOBIN 31.7 pg (27.0-33.0); MEAN CORPUSCULAR HGB CONC 33.4 g/dl (32.0-36.5); MEAN CORPUSCULAR VOLUME 94.8 fl (80.0-96.0); MONO # 0.7 10^3/uL (0.0-0.8); MONO % 8.6 % (0.0-5.0); NEUTROPHILS # 5.5 10^3/uL (1.8-7.7); NEUTROPHILS % 63.9 % (36.0-66.0); PLATELET COUNT, AUTOMATED 273 10^3/uL (150-450); RED BLOOD COUNT 3.63 10^6/uL (4.30-6.10); RED CELL DISTRIBUTION WIDTH 13.7 % (11.5-14.5); WHITE BLOOD COUNT 8.6 10^3/uL (4.0-10.0)
[2018-08-27 12:21] LABS: FERRITIN 116 NG/ML (26-388); IRON (FE) 81 UG/DL (65-175); PERCENT SATURATION 23.5 % (19.7-50.0); TOTAL IRON BINDING CAPACITY 344 UG/DL (250-450)
== END ==
LOC: M LAB 10:59
DX: D50.9 Iron deficiency anemia, unspecified (principal); I48.0 Paroxysmal atrial fibrillation; Z51.81 Encounter for therapeutic drug level monitoring; Z79.899 Other long term (current) drug therapy
CPT/HCPCS: 83550

== ENCOUNTER → 2018-08-27 | Outpatient (CLI) | payer MEDICARE ==
[2018-08-27 12:00] LABS: PROTHROMBIN TIME 25.8 SECONDS (12.1-14.4)
== END ==
LOC: M LAB 11:04
DX: I48.0 Paroxysmal atrial fibrillation (principal)
CPT/HCPCS: 85610

== ENCOUNTER → 2018-09-24 | Outpatient (CLI) | payer MEDICARE ==
[~2018-09-24] MED LIST changes: -AMLO5TAB2 PO; +AMLO5TAB4 PO; +ATEN100T PO; +BACL1TAB9 PO; +CLEO300C2 PO; +COUM1TAB17 PO; +DOXY100T PO; -DRIS50002 PO; +DRIS50003 PO; +GLIM1TAB PO; +LOSA-4 PO; -LOSA100T36 PO; +NORCOTAB PO; +POTA20TA6 PO
[2018-09-24 07:39] LABS: INR 1.8; PROTHROMBIN TIME 21.2 SECONDS (12.1-14.4)
== END ==
LOC: M LAB 06:26
PROVIDERS: ATTEND Physician Assistant
DX: I48.0 Paroxysmal atrial fibrillation (principal)

== ENCOUNTER → 2018-10-04 | Outpatient (CLI) | payer MEDICARE ==
[~2018-10-04] MED LIST changes: -AMLO5TAB4 PO; +AMLO5TAB6 PO; +LISI40TA PO; -LISI40TAB PO; -LOSA-4 PO; +LOSA100T50 PO
[2018-10-04 07:23] LABS: HEMATOCRIT 33.6 % (42.0-52.0); MEAN CORPUSCULAR HEMOGLOBIN 31.5 pg (27.0-33.0); MEAN CORPUSCULAR HGB CONC 32.7 g/dl (32.0-36.5); MEAN CORPUSCULAR VOLUME 96.3 fl (80.0-96.0); PLATELET COUNT, AUTOMATED 227 10^3/uL (150-450); RED BLOOD COUNT 3.49 10^6/uL (4.30-6.10); WHITE BLOOD COUNT 6.5 10^3/uL (4.0-10.0)
[2018-10-04 07:39] LABS: INR 2.51; PROTHROMBIN TIME 27.6 SECONDS (12.1-14.4)
--- NOTE | 2018-10-04 08:10 | REP ---
Chest x-ray: Two views. History: Paroxysmal atrial fibrillation. Comparison chest x-ray: July 04, 2018. Findings: There is linear fibrosis in the left base. The lungs are otherwise well inflated and clear. The pleural angles are sharp. Heart is not felt to be enlarged. Bipolar pacemaker remains in place via the left side. There are mild degenerative changes in the thoracic spine and in the thoracic aorta. Impression: Mild linear fibrosis left base. Otherwise no acute disease. Electronically Signed by Will Monte MD 10/04/2018 08:50 A
[2018-10-04 09:49] LABS: ALBUMIN 3.7 GM/DL (3.2-5.2); BILIRUBIN,TOTAL 0.4 MG/DL (0.2-1.0); CALCIUM LEVEL 8.3 MG/DL (8.8-10.2); CREATININE FOR GFR 1.69 MG/DL (0.70-1.30); GLOMERULAR FILTRATION RATE 42.1 (>42); MAGNESIUM LEVEL 2.2 MG/DL (1.8-2.4); THYROID STIMULATING HORMONE 1.76 uIU/ML (0.358-3.740); TOTAL PROTEIN 7.1 GM/DL (6.4-8.2)
== END ==
LOC: M LAB 06:55
PROVIDERS: ATTEND Physician Assistant
DX: I48.0 Paroxysmal atrial fibrillation (principal); I50.32 Chronic diastolic (congestive) heart failure; J84.10 Pulmonary fibrosis, unspecified

== ENCOUNTER → 2018-11-05 | Outpatient (CLI) | payer MEDICARE ==
[2018-11-05 09:16] LABS: INR 1.72; PROTHROMBIN TIME 20.5 SECONDS (12.1-14.4)
== END ==
LOC: M LAB 08:10
PROVIDERS: ATTEND Physician Assistant
DX: Z79.01 Long term (current) use of anticoagulants (principal); I48.0 Paroxysmal atrial fibrillation

== ENCOUNTER → 2018-11-19 | Outpatient (CLI) | payer MEDICARE ==
[2018-11-19 07:22] LABS: INR 1.63; PROTHROMBIN TIME 19.6 SECONDS (12.1-14.4)
== END ==
LOC: M LAB 06:33
PROVIDERS: ATTEND Physician Assistant
DX: I48.0 Paroxysmal atrial fibrillation (principal)

== ENCOUNTER → 2018-11-23 | Outpatient (CLI) | payer MEDICARE ==
[2018-11-23 07:28] LABS: BASO # 0.1 10^3/uL (0.0-0.2); BASO % 0.6 % (0.0-1.0); EOS # 0.3 10^3/uL (0.0-0.50); EOS % 3.7 % (0.0-3.0); HEMATOCRIT 34.1 % (42.0-52.0); HEMOGLOBIN 11.1 g/dl (13.5-17.5); LYMPH # 2.2 10^3/uL (1.5-4.5); LYMPH % 28.2 % (24.0-44.0); MEAN CORPUSCULAR HEMOGLOBIN 31.3 pg (27.0-33.0); MEAN CORPUSCULAR HGB CONC 32.6 g/dl (32.0-36.5); MEAN CORPUSCULAR VOLUME 96.1 fl (80.0-96.0); MONO # 0.8 10^3/uL (0.0-0.8); MONO % 10.2 % (0.0-5.0); NEUTROPHILS # 4.4 10^3/uL (1.8-7.7); NEUTROPHILS % 56.9 % (36.0-66.0); PLATELET COUNT, AUTOMATED 244 10^3/uL (150-450); RED BLOOD COUNT 3.55 10^6/uL (4.30-6.10); WHITE BLOOD COUNT 7.7 10^3/uL (4.0-10.0)
[2018-11-23 08:03] LABS: ALT/SGPT 26 U/L (12-78); BILIRUBIN,TOTAL 0.4 MG/DL (0.2-1.0); BLOOD UREA NITROGEN 26 MG/DL (7-18); CALCIUM LEVEL 8.5 MG/DL (8.8-10.2); CARBON DIOXIDE LEVEL 30 MEQ/L (21-32); CHLORIDE LEVEL 105 MEQ/L (98-107); CHOLESTEROL LEVEL 156 MG/DL (<200); CREATININE FOR GFR 1.22 MG/DL (0.70-1.30); GLOMERULAR FILTRATION RATE > 60.0 (>42); GLUCOSE, FASTING 113 MG/DL (70-100); HDL CHOLESTEROL 48 MG/DL (>40); LDL CHOLESTEROL 68 MG/DL (<100); NON-HDL-C 108 MG/DL; POTASSIUM SERUM 4.2 MEQ/L (3.5-5.1); SODIUM LEVEL 141 MEQ/L (136-145); TOTAL PROTEIN 7.2 GM/DL (6.4-8.2); TRIGLYCERIDES LEVEL 199 MG/DL (<150)
[2018-11-23 08:06] LABS: MALB URINE SIEMENS 45.3 MG/L; MAU/CREAT RATIO 35.1 MCG/MG (0.0-30.0)
[2018-11-23 08:42] LABS: HEMOGLOBIN A1c 6.2 %
== END ==
LOC: M LAB 06:35
PROVIDERS: ATTEND Family Medicine
DX: E11.69 Type 2 diabetes mellitus with other specified complication (principal)

== ENCOUNTER → 2018-12-04 | Outpatient (CLI) | payer MEDICARE ==
[2018-12-04 07:13] LABS: INR 1.97; PROTHROMBIN TIME 22.8 SECONDS (12.1-14.4)
== END ==
LOC: M LAB 06:42
PROVIDERS: ATTEND Physician Assistant
DX: I48.0 Paroxysmal atrial fibrillation (principal)

== ENCOUNTER → 2018-12-17 | Outpatient (CLI) | payer MEDICARE ==
[2018-12-17 10:21] LABS: INR 2.57; PROTHROMBIN TIME 28.1 SECONDS (12.1-14.4)
== END ==
LOC: M LAB 08:58
PROVIDERS: ATTEND Physician Assistant
DX: I48.0 Paroxysmal atrial fibrillation (principal)

== ENCOUNTER → 2019-01-14 | Outpatient (CLI) | payer MEDICARE ==
[~2019-01-14] MED LIST changes: -/WARF5TA; +COUM1TAB17; +HYDR-3715 PO; -NORCOTAB PO; -OLOP1OPD OU; +PATA2.5S OU
[2019-01-14 07:08] LABS: INR 2.9
== END ==
LOC: M LAB 06:20
PROVIDERS: ATTEND Physician Assistant
DX: I48.0 Paroxysmal atrial fibrillation (principal); Z79.01 Long term (current) use of anticoagulants

== ENCOUNTER → 2019-02-13 | Outpatient (CLI) | payer MEDICARE ==
[2019-02-13 07:43] LABS: INR 2.22; PROTHROMBIN TIME 25.1 SECONDS (12.1-14.4)
== END ==
LOC: M LAB 06:58
PROVIDERS: ATTEND Physician Assistant
DX: I48.0 Paroxysmal atrial fibrillation (principal)

== ENCOUNTER → 2019-02-21 | Outpatient (CLI) | payer MEDICARE ==
[2019-02-21 08:29] LABS: BASO # 0.1 10^3/uL (0.0-0.2); BASO % 0.7 % (0.0-1.0); EOS # 0.2 10^3/uL (0.0-0.50); HEMATOCRIT 32.6 % (42.0-52.0); HEMOGLOBIN 10.8 g/dl (13.5-17.5); LYMPH # 1.5 10^3/uL (1.5-4.5); LYMPH % 22.8 % (24.0-44.0); MEAN CORPUSCULAR HEMOGLOBIN 31.4 pg (27.0-33.0); MEAN CORPUSCULAR HGB CONC 33.1 g/dl (32.0-36.5); MEAN CORPUSCULAR VOLUME 94.8 fl (80.0-96.0); MONO # 0.7 10^3/uL (0.0-0.8); NEUTROPHILS # 4.2 10^3/uL (1.8-7.7); NEUTROPHILS % 63.1 % (36.0-66.0); PLATELET COUNT, AUTOMATED 231 10^3/uL (150-450); RED BLOOD COUNT 3.44 10^6/uL (4.30-6.10); WHITE BLOOD COUNT 6.7 10^3/uL (4.0-10.0)
[2019-02-21 08:48] LABS: HEMOGLOBIN A1c 5.9 %
[2019-02-21 08:58] LABS: BLOOD UREA NITROGEN 26 MG/DL (7-18); CALCIUM LEVEL 8.9 MG/DL (8.8-10.2); CARBON DIOXIDE LEVEL 28 MEQ/L (21-32); CHLORIDE LEVEL 105 MEQ/L (98-107); CREATININE FOR GFR 1.15 MG/DL (0.70-1.30); FERRITIN 69 NG/ML (26-388); GLOMERULAR FILTRATION RATE > 60.0 (>42); GLUCOSE, FASTING 93 MG/DL (70-100); IRON (FE) 73 UG/DL (65-175); PERCENT SATURATION 21.7 % (19.7-50.0); SODIUM LEVEL 139 MEQ/L (136-145); TOTAL IRON BINDING CAPACITY 336 UG/DL (250-450)
== END ==
LOC: M LAB 07:38
PROVIDERS: ATTEND Physician Assistant
DX: E11.69 Type 2 diabetes mellitus with other specified complication (principal); D50.9 Iron deficiency anemia, unspecified

== ENCOUNTER → 2019-03-13 | Outpatient (CLI) | payer MEDICARE ==
[2019-03-13 07:07] LABS: INR 2.51; PROTHROMBIN TIME 27.6 SECONDS (12.1-14.4)
== END ==
LOC: M LAB 06:27
PROVIDERS: ATTEND Physician Assistant
DX: I48.0 Paroxysmal atrial fibrillation (principal)

== ENCOUNTER → 2019-04-08 | Outpatient (CLI) | payer MEDICARE ==
[~2019-04-08] MED LIST changes: +AMIO0.1T PO; +AQUAOIN12 TOP; +BENZ0.5T23 PO; +BENZ2TAB5 PO; -GLIM1TAB PO; +GLIM1TAB4 PO; +MIRA0.5T PO; +SYST1SOL4 OU
[2019-04-08 07:13] LABS: INR 3.05; PROTHROMBIN TIME 31.5 SECONDS (11.8-14.0)
== END ==
LOC: M LAB 06:32
PROVIDERS: ATTEND Physician Assistant
DX: I48.0 Paroxysmal atrial fibrillation (principal)

== ENCOUNTER → 2019-05-03 | Outpatient (CLI) | payer MEDICARE ==
[~2019-05-03] MED LIST changes: -AMIO0.1T PO; -AQUAOIN12 TOP; -BENZ0.5T23 PO; -BENZ2TAB5 PO; +GLIM1TAB PO; -GLIM1TAB4 PO; -MIRA0.5T PO; -SYST1SOL4 OU
[2019-05-03 09:59] LABS: INR 3.25; PROTHROMBIN TIME 33.1 SECONDS (11.8-14.0)
== END ==
LOC: M LAB 08:25
PROVIDERS: ATTEND Physician Assistant
DX: I48.0 Paroxysmal atrial fibrillation (principal)

== ENCOUNTER → 2019-05-20 | Outpatient (CLI) | payer MEDICARE ==
[2019-05-20 07:38] LABS: INR 2.55; PROTHROMBIN TIME 27.3 SECONDS (11.8-14.0)
== END ==
LOC: M LAB 06:26
PROVIDERS: ATTEND Physician Assistant
DX: I48.0 Paroxysmal atrial fibrillation (principal); Z79.01 Long term (current) use of anticoagulants

== ENCOUNTER → 2019-06-19 | Outpatient (CLI) | payer MEDICARE ==
[2019-06-19 08:52] LABS: INR 2.36; PROTHROMBIN TIME 25.6 SECONDS (11.8-14.0)
== END ==
LOC: M LAB 07:30
PROVIDERS: ATTEND Physician Assistant
DX: I48.0 Paroxysmal atrial fibrillation (principal)

== ENCOUNTER → 2019-07-17 | Outpatient (CLI) | payer MEDICARE ==
[2019-07-17 08:46] LABS: INR 2.86; PROTHROMBIN TIME 29.9 SECONDS (11.8-14.0)
== END ==
LOC: M LAB 07:42
PROVIDERS: ATTEND Physician Assistant
DX: I48.0 Paroxysmal atrial fibrillation (principal)

== ENCOUNTER 2019-08-11 01:12 | Inpatient (IN) | payer MEDICARE ==
[~2019-08-11] VITALS: Ht 175.3 cm; Wt 109.1 kg
[~2019-08-11 01:12] MED LIST changes: -GLIM1TAB PO; +GLIM1TAB2 PO
[2019-08-11 01:18] LABS: HEMATOCRIT 31.2 % (42.0-52.0); HEMOGLOBIN 10.2 g/dl (13.5-17.5); MEAN CORPUSCULAR HEMOGLOBIN 31.6 pg (27.0-33.0); MEAN CORPUSCULAR HGB CONC 32.7 g/dl (32.0-36.5); MEAN CORPUSCULAR VOLUME 96.6 fl (80.0-96.0); PLATELET COUNT, AUTOMATED 211 10^3/uL (150-450); RED BLOOD COUNT 3.23 10^6/uL (4.30-6.10)
[2019-08-11] MEDS ORDERED: MIRA0.5T PO (01:32)
[2019-08-11] MEDS ORDERED: BENZ0.5T23 PO (01:32)
--- NOTE | 2019-08-11 02:05 | REPVR ---
PROCEDURE INFORMATION: Exam: CT Head Without Contrast Exam date and time: 08/11/2019 1:09 AM Clinical history: 79 years old, male; Altered mental status/memory loss; Confusion or disorientation; Additional info: AMS TECHNIQUE: Imaging protocol: Computed tomography of the head without contrast. Radiation optimization: All CT scans at this facility use at least one of these dose optimization techniques: automated exposure control; mA and/or kV adjustment per patient size (includes targeted exams where dose is matched to clinical indication); or iterative reconstruction. COMPARISON: No relevant prior studies available. FINDINGS: Brain: Decreased attenuation of the supratentorial white matter is likely secondary to chronic microvascular ischemia. No acute intracranial hemorrhage. Ventricles: Ventricular and subarachnoid spaces are age appropriate. Bones/joints: Unremarkable. No acute fracture. Sinuses: Visualized sinuses are unremarkable. No fluid levels. Mastoid air cells: Visualized mastoid air cells are well aerated. Soft tissues: Unremarkable. Vasculature: Intracranial vascular calcification. IMPRESSION: No acute intracranial abnormality. Electronically signed by: Hu Barfield On 08/11/2019 02:05:13 AM
[2019-08-11 02:23] LABS: ALBUMIN 3.8 GM/DL (3.2-5.2); ALT/SGPT 22 U/L (12-78); BILIRUBIN,DIRECT < 0.1 MG/DL (0.0-0.2); BILIRUBIN,TOTAL 0.5 MG/DL (0.2-1.0); BLOOD UREA NITROGEN 26 MG/DL (7-18); CALCIUM LEVEL 8.4 MG/DL (8.8-10.2); CARBON DIOXIDE LEVEL 28 MEQ/L (21-32); CHLORIDE LEVEL 106 MEQ/L (98-107); CK-MB VALUE MASS < 1.0 NG/ML (<3.6); CPK CREATINE PHOSPHOKINASE 108 U/L (39-308); CREATININE FOR GFR 1.43 MG/DL (0.70-1.30); GLOMERULAR FILTRATION RATE 50.9 (>42); GLUCOSE, FASTING 112 MG/DL (70-100); MB/CK RELATIVE INDEX 0.93 (< OR =4); POTASSIUM SERUM 3.6 MEQ/L (3.5-5.1); SODIUM LEVEL 141 MEQ/L (136-145); TOTAL PROTEIN 7.1 GM/DL (6.4-8.2); TROPONIN I < 0.02 NG/ML (< 0.10)
[2019-08-11 03:35] LABS: AMPHETAMINES LEVEL URINE NEGATIVE (NEGATIVE); BARBITURATES URINE NEGATIVE (NEGATIVE); BENZODIAZEPINES URINE NEGATIVE (NEGATIVE); CANNABINOIDS URINE NEGATIVE (NEGATIVE); COCAINE METABOLITE URINE NEGATIVE (NEGATIVE); METHADONE URINE NEGATIVE (NEGATIVE); OPIATES URINE NEGATIVE (NEGATIVE); PHENCYCLIDINE URINE NEGATIVE (NEGATIVE)
[2019-08-11] MEDS ORDERED: DEXTROSE 50% 50 ML SYRINGE IV PRN (04:00)
[2019-08-11] MEDS ORDERED: GLUCOSE 4 GM CHEW TABLET PO PRN (04:00)
[2019-08-11] MEDS ORDERED: GLUCAGON FOR INJ 1 MG VIAL (J1610) SC PRN (04:00)
[2019-08-11] MEDS ORDERED: amLODIPine 10 MG TAB PO ONE (04:00)
[2019-08-11] MEDS ORDERED: AQUAOIN12 TOP (04:42)
[2019-08-11] MEDS ORDERED: WARF-23 PO ×2 (04:42)
[2019-08-11] MEDS ORDERED: SYST1SOL4 OU (04:42)
[2019-08-11] MEDS ORDERED: BENZ2TAB5 PO (04:42)
[2019-08-11] MEDS ORDERED: AMIO0.1T PO (04:42)
[2019-08-11 05:30] VITALS: BP 137/70
[2019-08-11 05:34] LABS: INR 2.35; PROTHROMBIN TIME 25.6 SECONDS (11.8-14.0)
[2019-08-11] MEDS: HumaLOG INSULIN (NovoLOG) PER UNIT SC SCH ×4 (07:30→21:00)
[2019-08-11 08:10] VITALS: BP 135/69
[2019-08-11] MEDS: AMIODARONE 100MG TABLET (PACERONE) PO SCH (08:21)
[2019-08-11] MEDS: FUROSEMIDE 40 MG TAB PO SCH (08:21)
[2019-08-11] MEDS: PRAMIPEXOLE 0.25 MG TAB PO SCH ×3 (08:21→21:50)
[2019-08-11] MEDS: amLODIPine 5 MG TAB PO SCH (08:21)
[2019-08-11] MEDS: LOSARTAN 50 MG TAB PO SCH (08:22)
[2019-08-11] MEDS: GLIMEPIRIDE 1 MG TABLET PO SCH (08:22)
[2019-08-11] MEDS: POTASSIUM CHLORIDE 10 MEQ SR TABLET PO SCH (08:22)
[2019-08-11] MEDS: ATORVASTATIN 20 MG TAB PO SCH (08:22)
[2019-08-11] MEDS: ATENOLOL 50 MG TAB PO SCH ×2 (08:23→21:50)
--- NOTE | 2019-08-11 08:23 | REP ---
Clinical: Altered mental status . Comparison: 04/29/2019 . Findings: The mediastinum and cardiac silhouette are stable and within normal limits for portable technique. The lung miller are clear without acute consolidation, effusion, or pneumothorax. Stable scarring at the left base. Skeletal structures are intact. Impression: No acute cardiopulmonary process appreciated. Electronically Signed by Suhail Dean MD 08/11/2019 08:14 A
--- NOTE | 2019-08-11 10:48 | HPE ---
DATE OF ADMISSION: 08/11/2019 PRIMARY CARE PROVIDER: Dr. Priscilla Liriano LEAD FURNACE OPERATOR: Dr. Eamon Kowalski NEUROLOGIST: Dr. Jaida Gunderson CHIEF COMPLAINT: Confusion with hallucination, worsening tremors and fall due to gait imbalance. HISTORY OF PRESENT ILLNESS: This is a 79-year-old male FULL CODE, brought in by family due to worsening hallucinations which started Monday evening. According to the sister who lives with the patient at home, the patient has been seeing things, talking to people who are not in the room. Has been increasingly agitated at home and not making any sense since benztropine was started last Monday for tremors. Due to multiple comorbidities other medications could not be given according to the patient's sister and since he has been on benztropine patient has been talking to people who are not there, grabbing things in thin air. He has conversations such as inviting people to sit down and introducing his sister, saying "you remember my sister here". He said that there are four baths in the bathroom yesterday. He said that there was an accident in front of the house when there was not. He has not been sleeping for the past one to two nights. Gets startled easily and jumps up and asked "what is over there, what is going on?". Patient took his hat and coat and got up to take his girlfriend home. Patient currently is not in a relationship. The sister had to remind him that he was at home and that there was no one to take home. He told his sister that there are two teenagers outside with 4 x 4 lumber trying to do something to his truck. He went out to lock his truck, but there were no teenagers outside that the sister could see. When the sister asked where are the kids, the patient said "oh they are around the house somewhere". According to the rest of the family including his [id number] and his friend Len who are present at the bedside, the patient recognizes them, able to converse adequately and appropriately, but within a few minutes, patient then goes off and has more hallucinations and says that he is also hearing voices. He asked his sister if he could stay here referring to the house and she said to him that he does live there with her and that it would be alright. He was brought in to the hospital, CT of the head was negative due to worsening gait imbalance. He did fall at home, landing on his left thigh with a bruise because he had a thermometer in his pocket and he landed on this, while he is on Coumadin. CT of the head did not show any hematoma. Due to chronic cough, which is nonproductive, without fever or chills, chest x-ray was performed, which was also negative. CBC, metabolic panel, cardiac markers were all essentially unremarkable. TSH was normal. Urine toxicology screen was negative. Urinalysis head was also clean with no signs of polyuria or bacteruria. Hospitalist was called to admit for acute delirium most likely secondary to medication given at the correct dose with an adverse reaction. PAST MEDICAL HISTORY: Atrial fibrillation, on Coumadin. Type 2 diabetes. Hyperlipidemia. Chronic kidney disease, stage II to III. Obesity. BMI 35.5. Coronary artery disease. Hyperlipidemia. Hypertension. Glaucoma. Moderate pulmonary hypertension. Moderate aortic stenosis, ejection fraction 70%. Congestive heart failure. Coronary artery disease. Familial essential tremors. Posterior tibial tendinitis in the right ankle and a grade I posterior tibial tendon tear. ALLERGIES: No known drug allergies. HOME MEDICATIONS: - benztropine 1 mg twice a day - vitamin D 50,000 units monthly - warfarin 5 mg three times a week - metformin 2 grams every p.m. 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 Lives with his sister. Healthcare proxy Jennifer Steele, currently a FULL CODE as he had not discussed advanced directives previously. Phone number [phone]. Denies current tobacco use, alcohol use. Has one brother, one sister. Never been . No children. REVIEW OF SYSTEMS: Per HPI, 12 point system otherwise negative. PHYSICAL EXAMINATION: Temperature 98.8, pulse, 75, respiratory rate 18, blood pressure 136/65, 97% on room air. GENERAL: The patient is awake, alert, oriented to person only. Able to state his name and date of . He knew he was at [facility], but thought that he was in [place]. Could not tell us the date. The patient is cooperative. Still hallucinating, but able to recognize his [id number], but it took about 2 minutes to remember her name. He is able to converse appropriately. His speech is fluent but muffled. He currently has no respiratory distress. No use of respiratory accessory muscles. Poor dentition. Dry mucous membranes. No jugular venous distention (JVD), thyromegaly. He follows commands. Face is symmetric. Tongue is midline. Significant dysmetria in finger to nose testing with resting tremors and worsened with fine motor skills. LUNGS: Diminished breath sounds but clear to auscultation. No wheezing, rales or rhonchi. HEART: S1, S2, currently sinus rhythm. Systolic ejection murmur at the apex, radiation to the carotids. ABDOMEN: Obese, soft, nontender, nondistended. Positive bowel sounds. No rebound, guarding. No abdominal bruits. EXTREMITIES: Chronic trace 1+ pitting edema. SKIN: Patient does have a bruise under the left breast secondary to recent fall. He has no contusions. Otherwise, on the bilateral upper and lower extremities he has resting tremors both bilateral upper extremities and he has increasing myoclonus and jerking of the lower extremities which are involuntary. His gait was not tested, but appears to have significant imbalance when he attempts to get up. Unable to get up unassisted. LABORATORY DATA: White count 8, hemoglobin 10, hematocrit 31, platelet count 211, sodium 141, potassium 3.6, chloride 106, bicarbonate 28, BUN 26, creatinine 1.43, glucose 112, calcium 8.4. T-bilirubin 0.5, direct bilirubin 11.1, AST 10, ALT 22, alkaline phosphatase 82, total CK 108, MB fraction less than 1. Troponin less than 0.02. Total protein 7.1. Albumin of 3.3, TSH of 2.210. Urinalysis: Yellow appearance, clear, pH of 5, specific gravity 1.02. Negative protein, glucose, ketone, blood, nitrite, bilirubin, urobilinogen, leukocyte esterase, 1 WBC, 0 RBC, negative bacteria. Toxicology screen is negative. Microbiology: None. CT head: No acute intracranial abnormality. Chest x-ray pending results. Appears clear. ASSESSMENT AND PLAN: This is a 79-year-old male, history of atrial fibrillation, type 2 diabetes, hyperlipidemia, coronary artery disease (CAD), heart failure, diastolic dysfunction, ejection fraction (EF) of 70%, he has moderate pulmonary hypertension, glaucoma, hyperlipidemia, hypertension, obesity, BMI of 35.5, chronic kidney disease stage II to III, familial essential tremors, pacemaker placement, right ankle repair, pilonidal cyst drainage presents with acute onset of visual and auditory hallucinations, combativeness since being started on benztropine last Monday. Patient is admitted for the following issues: 1. Adverse affect to a medication given at the correct dose and frequency. Patient is having acute delirium secondary to benztropine which was started just last Monday. Patient is admitted with a sitter due to risk of falls and significant confusion. Benztropine has been discontinued. Neurologist is to be called by 7:00 a.m. hospitalist attending for consultation. 2. Atrial fibrillation. On chronic Coumadin. Check INR secondary to recent fall from gait imbalance. Continue with amiodarone and warfarin and hold the warfarin if INR is greater than 3. Currently his blood pressure is well maintained. 3. History of congestive heart failure. EF of 70%, currently euvolemic. No signs of acute decompensation. He is continued on his home dose of Lasix 40 mg daily, atenolol 50 mg twice a day, atorvastatin 40 daily, losartan of 100 daily and potassium 20 mEq daily. 4. Hypertension, stable on atenolol and amlodipine. 5. Chronic kidney disease, stage III, stable on losartan 100 mg daily at baseline creatinine. 6. Dyslipidemia. On chronic atorvastatin. Check lipid panel in the morning. 7. Type 2 diabetes. Currently on sliding scale and consistent carbohydrate diet. 8. Familial essential tremors. Hold off on patient's benztropine. Neurology consult. 9. Recent fall, secondary to gait imbalance. CT of the head was negative for any intracranial hemorrhage or subdural hematoma. Assisted ambulation only and consult acute rehabilitation unit. DIET: Consistent carbohydrate 2 gram sodium diet. CODE STATUS: FULL CODE. Healthcare proxy is Jennifer Steele, sister. Patient was never and has no children. Healthcare proxy phone number is [phone]. [facility]
--- NOTE | 2019-08-11 12:00 | ECGEPIP ---
[facility] - ED Test Date: 2019-08-11 Pat Name: MIKE PAIZ Department: Room: [place] [address] Gender: Male Linemarker: : 1940 Requested By: ARASH Armas Order Number: [id number] Reading MD: Aimee Dickson Measurements Intervals [place] Rate: 69 P: 57 W[place]: 276 QRS: -11 QRSD: 85 T: 253 QT: 411 QTc: 443 Interpretive Statements ELECTRONIC ATRIAL PACEMAKER LEFT VENTRICULAR HYPERTROPHY AND ST-T CHANGE NSTTW abnormalities Electronically Signed on 08-11-2019 12:00:38 EST by Aimee Dickson
[2019-08-11 14:00] VITALS: BP 156/82
[2019-08-11] MEDS: WARFARIN SOD 2.5 MG TAB PO SCH (16:48)
[2019-08-11 21:45] VITALS: BP 136/70
[2019-08-11] MEDS: LATANOPROST 0.005% OPHTH SOLN 2.5 ML OU SCH (21:50)
[2019-08-11 22:00] VITALS: BP 138/71
[2019-08-12 06:00] VITALS: BP 137/71
[2019-08-12 06:13] LABS: HEMATOCRIT 31.8 % (42.0-52.0); HEMOGLOBIN 10.3 g/dl (13.5-17.5); MEAN CORPUSCULAR HEMOGLOBIN 31.5 pg (27.0-33.0); MEAN CORPUSCULAR HGB CONC 32.4 g/dl (32.0-36.5); MEAN CORPUSCULAR VOLUME 97.2 fl (80.0-96.0); PLATELET COUNT, AUTOMATED 213 10^3/uL (150-450); RED BLOOD COUNT 3.27 10^6/uL (4.30-6.10); WHITE BLOOD COUNT 7.4 10^3/uL (4.0-10.0)
[2019-08-12 06:21] LABS: INR 2.19; PROTHROMBIN TIME 24.2 SECONDS (11.8-14.0)
[2019-08-12 06:38] LABS: BLOOD UREA NITROGEN 25 MG/DL (7-18); CALCIUM LEVEL 8.4 MG/DL (8.8-10.2); CARBON DIOXIDE LEVEL 29 MEQ/L (21-32); CHLORIDE LEVEL 106 MEQ/L (98-107); CREATININE FOR GFR 1.23 MG/DL (0.70-1.30); GLOMERULAR FILTRATION RATE > 60.0 (>42); GLUCOSE, FASTING 118 MG/DL (70-100); POTASSIUM SERUM 3.5 MEQ/L (3.5-5.1); SODIUM LEVEL 139 MEQ/L (136-145)
[2019-08-12] MEDS: ATORVASTATIN 20 MG TAB PO SCH (08:15)
[2019-08-12] MEDS: HumaLOG INSULIN (NovoLOG) PER UNIT SC SCH ×4 (08:16→21:00)
[2019-08-12] MEDS: PRAMIPEXOLE 0.25 MG TAB PO SCH ×3 (08:16→21:39)
[2019-08-12] MEDS: GLIMEPIRIDE 1 MG TABLET PO SCH (08:16)
[2019-08-12] MEDS: AMIODARONE 100MG TABLET (PACERONE) PO SCH (08:17)
[2019-08-12] MEDS: LOSARTAN 50 MG TAB PO SCH (08:17)
[2019-08-12] MEDS: amLODIPine 5 MG TAB PO SCH (08:17)
[2019-08-12] MEDS: FUROSEMIDE 40 MG TAB PO SCH (08:17)
[2019-08-12] MEDS: POTASSIUM CHLORIDE 10 MEQ SR TABLET PO SCH (08:17)
[2019-08-12] MEDS: ATENOLOL 50 MG TAB PO SCH ×2 (08:18→21:40)
--- NOTE | 2019-08-12 09:24 | IPNPDOC ---
Text Note Date of Service The patient was seen on 08/12/19. NOTE Mr. Bonner was seen this morning and states he is "not too bad". He states that he is still seeing visual hallucinations including cats. He does admit to auditory hallucinations that are consistent in intensity to his previous hallucinations. He states he hears voices but cannot quite make out what they are saying. He denies command hallucinations or suicidal/homicidal intentions. He states that he slept well. His sister was present and states that these hallucinations are non-existent at his baseline. She states as of last week that he was driving and was coherent without major disability. Per the patient's he was seen by PT and OT today. He denies overnight fevers, chills, SOB, chest or abdominal pain, nausea or vomiting. Physical Exam: General: Mr. Bonner is a 79 year old male laying in his bed in no apparent distress. Slight speech impediment noted HEENT: Atraumatic, normocephalic, EOMI, PERRLA. Trachea midline Respiratory: Lungs CTA B/L Cardiovascular: Grade 2/6 systolic murmur noted on exam consistent with echocardiogram report of Aortic stenosis. Normal and regular ventricular rate noted. No knocks or rubs noted. GI: Umbilical hernia noted. Abdomen appears distended. No guarding, bruising, organomegaly palpated. Psych: Well mannered, cooperative to exam, full affect noted, appropriate answers. Does not appear to be responding to internal stimuli Neuro: Alert and Aware X3. Muscle strength 5/5 in all UE and LE planes. Cranial nerves II-XII grossly intact. Shuffling gait with instability noted-apparently not present at baseline. Intention tremor noted in UE with possible resting tremor in his LE. Assessment: Mr. Bonner is a 79 year old male with a PMHx significant for A. Fib on rate and rhythm control, type 2 DM, CKD stage III, CAD, and familial essential tremor, who presents to the hospital after recent onset delirium likely secondary to a new prescription to Benztropine. Plan: #Altered Mental Status likely 2/2 Medication: -Benztropine was switched to Pramipexole -Patient appears less agitated and denies current visual hallucinations. Still reports auditory hallucinations. #A.Fib: -Rate controlled on atenolol -Rhythm controlled with amiodarone -Anticoagulated on Warfarin - INR therapeutic -Echocardiogram performed this morning-results pending #Chronic CHF: -Patient is euvolemic -Continue home Lasix 40 mg QD, atenolol 50 mg BID #Hypertension: -Stable on home atenolol and amlopidine 10 mg #CKD: -Stage III -Stable on home losartan 100 mg QD and potassium 20 mEq QD #Hypokalemia: -Potassium was 3.4 on admission and 3.5 this morning -40 mEq given PO given today #Dyslipidemia: -Continue atorvastatin -Order lipid panel #Type 2 DM: -Hold home diabetes medications -Glucose control with sliding scale -Consistent carbohydrate diet #Familial Essential Tremors: -Benztropine held -Neurology consult will be placed if there is no improvement in symptoms tomorrow #Recent Fall 2/2 gait imbalance: -CT was negative for acute pathology -Assisted ambulation only -Fall risk precautions -Continue PT eval and treatment #DVT prophylaxis: -Patient is already anticoagulated with Warfarin Attending Addendum: I personally saw and examined the patient. I discussed the care and management of this patient with Resident in detail and agree with the above plan. Additional information below: - Admitted for confusion/hallucinations, presumed to be from anti-cholinergic effects of benztropine, slightly improved after stopping medications, has night time delirium at baseline so patient may recover slower than anticipated. PT eval appreciated, possible rehab. VS,Fishbone, I+O VS, Fishbone, I+O Laboratory Tests 08/12/19 05:32 Vital Signs Date Time Temp Pulse Resp B/P (MAP) Pulse Ox O2 Delivery O2 Flow Rate FiO2 08/12/19 08:17 71 139/71 08/12/19 06:00 98.3 18 94 Room Air I&O- Last 24 Hours up to 6 AM 08/12/19 06:00 Intake Total 1800 ml Output Total 2 ml Balance 1798 ml FRANCHESCA MOHAMUD OMS-3 Aug 12, 2019 09:24 ALOK LITTLEJOHN DO Aug 12, 2019 16:12 SIDRA MIMS MD Aug 13, 2019 07:30
--- NOTE | 2019-08-12 10:24 | ECHO ---
DATE OF PROCEDURE: 08/12/2019 AGE: 79. GENDER: Male. HEIGHT: 69 inches. WEIGHT: 240 pounds. BODY SURFACE AREA: 2.23 sq m. [facility] ROOM: 4224. REFERRING PHYSICIAN: Myrna Munson MD INDICATION: Aortic stenosis. MEASUREMENTS: 2D measurements: RV - 4.2 cm LV - 4.8 cm Septum 1.2 cm Posterior wall 1.2 cm Aortic root 3.4 cm LA - 4.6 cm LVEF 75% Doppler measurements: AV - 3.18 m/s LVOT - 1.14 m/s LVOT diameter 2.0 cm Mean AV systolic gradient 22 mmHg Dimensionless index 0.35 MV - E 47 A 63 EA ratio 0.7 Early mitral deceleration time 264 ms E prime medial 8.1 A prime medial 9.4 E prime lateral 6.2 E/E prime average 6.6, PCWP 10 mmHg PV - 0.75 m/s Pulmonary artery acceleration time 108 ms RVSP 35 mmHg IVC - 1.6 cm COMMENTS: Consistent atrial placed rhythm with spontaneous AV conduction and narrow QRS complexes. Technically difficult study in light of the patient's body habitus, but diagnostic useful information was still obtained. M-mode and two-dimensional echocardiography was performed with pulse, continuous wave, color flow, and tissue Doppler studies. Mild concentric left ventricular hypertrophy with hyperkinetic wall motion. Mild to moderately dilated left atrium with grade 1 LV diastolic impairment yet currently normal estimated mean left atrial pressure. Borderline dilated right heart chambers with normal wall motion and Doppler evidence of mild pulmonary hypertension. Normal IVC size and collapse against an elevated central venous pressure. Moderate calcific aortic stenosis with trace insufficiency. Normal aortic dimensions. Mild degenerative changes of the mitral valvular apparatus with no more than very mild mitral insufficiency. Normal-appearing tricuspid valve with trace to very mild insufficiency. Pacing leads could be visualized traversing right heart structures but no other apparent intracardiac mass. No pericardial effusion.
[2019-08-12 14:00] VITALS: BP 138/70
[2019-08-12] MEDS ORDERED: POTASSIUM CHLORIDE 10 MEQ SR TABLET PO ONE (14:00)
[2019-08-12] MEDS ORDERED: WARFARIN SOD 5 MG TAB PO SCH (17:00)
[2019-08-12] MEDS: LATANOPROST 0.005% OPHTH SOLN 2.5 ML OU SCH (21:39)
[2019-08-12 22:00] VITALS: BP 132/90
[2019-08-13 06:00] VITALS: BP 131/89
[2019-08-13 07:06] LABS: HEMATOCRIT 30.5 % (42.0-52.0); HEMOGLOBIN 10.1 g/dl (13.5-17.5); MEAN CORPUSCULAR HEMOGLOBIN 31.7 pg (27.0-33.0); MEAN CORPUSCULAR HGB CONC 33.1 g/dl (32.0-36.5); MEAN CORPUSCULAR VOLUME 95.6 fl (80.0-96.0); PLATELET COUNT, AUTOMATED 189 10^3/uL (150-450); RED BLOOD COUNT 3.19 10^6/uL (4.30-6.10); WHITE BLOOD COUNT 6.2 10^3/uL (4.0-10.0)
[2019-08-13 07:16] LABS: INR 2.13; PROTHROMBIN TIME 23.6 SECONDS (11.8-14.0)
[2019-08-13] MEDS: HumaLOG INSULIN (NovoLOG) PER UNIT SC SCH ×4 (07:30→20:34)
[2019-08-13 07:33] LABS: BLOOD UREA NITROGEN 22 MG/DL (7-18); CALCIUM LEVEL 8.1 MG/DL (8.8-10.2); CARBON DIOXIDE LEVEL 28 MEQ/L (21-32); CHLORIDE LEVEL 104 MEQ/L (98-107); CREATININE FOR GFR 1.16 MG/DL (0.70-1.30); GLOMERULAR FILTRATION RATE > 60.0 (>42); GLUCOSE, FASTING 87 MG/DL (70-100); POTASSIUM SERUM 4.2 MEQ/L (3.5-5.1); SODIUM LEVEL 137 MEQ/L (136-145)
[2019-08-13] MEDS: AMIODARONE 100MG TABLET (PACERONE) PO SCH (08:19)
[2019-08-13] MEDS: GLIMEPIRIDE 1 MG TABLET PO SCH (08:19)
[2019-08-13] MEDS: PRAMIPEXOLE 0.25 MG TAB PO SCH ×3 (08:19→20:51)
[2019-08-13] MEDS: ATORVASTATIN 20 MG TAB PO SCH (08:19)
[2019-08-13] MEDS: ATENOLOL 50 MG TAB PO SCH ×2 (08:19→20:51)
[2019-08-13] MEDS: LOSARTAN 50 MG TAB PO SCH (08:20)
[2019-08-13] MEDS: POTASSIUM CHLORIDE 10 MEQ SR TABLET PO SCH (08:20)
[2019-08-13] MEDS: FUROSEMIDE 40 MG TAB PO SCH (08:20)
[2019-08-13] MEDS: amLODIPine 5 MG TAB PO SCH (08:20)
--- NOTE | 2019-08-13 10:53 | IPNPDOC ---
Text Note Date of Service The patient was seen on 08/13/19. NOTE Mr. Bonner was seen today and reports that his night was not too bad. He de nies any visual or auditory hallucinations today. He states he is still using his walker to move around which is not baseline for him per his sister. He denies remembering his hallucinations yesterday. He reported no fevers, chills, headache, SOB, chest pain, nausea or vomiting. Physical Exam: General: Mr. Bonner is a 79 year old male laying in his bed in no apparent distress. Slight speech impediment noted HEENT: Atraumatic, normocephalic, EOMI, PERRLA. Trachea midline Respiratory: Lungs CTA B/L Cardiovascular: Grade 2/6 systolic murmur noted on exam consistent with echocardiogram report of Aortic stenosis. Normal and regular ventricular rate noted. No knocks or rubs noted. GI: Umbilical hernia noted. Abdomen appears distended. No guarding, bruising, organomegaly palpated. Psych: Well mannered, cooperative to exam, full affect noted, appropriate answers. Does not appear to be responding to internal stimuli Neuro: Alert and Aware X3. Muscle strength 5/5 in all UE and LE planes. Cranial nerves II-XII grossly intact. Intention tremor noted in UE B/L. Assessment: Mr. Bonner is a 79 year old male with a PMHx significant for A. Fib on rate and rhythm control, type 2 DM, CKD stage III, CAD, and familial essential tremor, who presents to the hospital after recent onset delirium likely secondary to a new prescription to Benztropine. Plan: #Altered Mental Status likely 2/2 Medication: -Benztropine stopped. Continue home Pramipexole -Patient appears less agitated and denies current visual hallucinations. -Appears to be improving, answers questions appropriately, Alert and aware X3, still not at baseline but is improved per sister #A.Fib: -Rate controlled on atenolol -Rhythm controlled with amiodarone -Anticoagulated on Warfarin - INR therapeutic -Echocardiogram (08/12) shows moderate aortic stenosis with trace insufficiency as well as borderline elevated right heart chambers with evidence of mild pulmonary hypertension #Chronic Diastolic CHF: -Patient is euvolemic - ECHO 08/12/2019: Preserved EF, G1DD -Continue home Lasix 40 mg QD, atenolol 50 mg BID #Hypertension: -Stable on home atenolol and amlodipine 10 mg #CKD: -Stage III -Stable on home losartan 100 mg QD and potassium 20 mEq QD #Hypokalemia: -Potassium was 3.5 yesterday and was given 40 mEq -Potassium now 4.2 -continue to monitor with BMP QD #Dyslipidemia: -Continue atorvastatin -Order lipid panel #Type 2 DM: -Hold home diabetes medications -Glucose control with sliding scale -Consistent carbohydrate diet #Familial Essential Tremors: -Benztropine held and Pramipexole started #Recent Fall 2/2 gait imbalance: -CT was negative for acute pathology -Assisted ambulation only -Fall risk precautions -Continue PT eval and treatment #DVT prophylaxis: -Patient is already anticoagulated with Warfarin VS,Fishbone, I+O VS, Fishbone, I+O Laboratory Tests 08/13/19 06:32 08/13/19 06:43 Vital Signs Date Time Temp Pulse Resp B/P (MAP) Pulse Ox O2 Delivery O2 Flow Rate FiO2 08/13/19 08:19 79 131/89 08/13/19 06:00 98.3 18 98 08/12/19 22:00 Room Air I&O- Last 24 Hours up to 6 AM 08/13/19 05:59 Intake Total 600 ml Balance 600 ml GME ATTESTATION GME ATTESTATION My faculty preceptor for this patient encounter was physically present during the encounter and was fully available. All aspects of the patient interview, examination, medical decision making process, and medical care plan development were reviewed and approved by the faculty preceptor. The faculty preceptor is aware and concurs with the plan as stated in the body of this note and will attest to such by his/her cosignature. ATTENDING NOTE I, Trev Ledezma, have independently examined this patient and performed my own physical exam, as well as reviewed the documentation and edited where necessary. I have discussed in detail with the resident / student the findings and plan of treatment as documented by the resident / student and edited their note. I agree with their findings and treatment plan and have edited their documentation. I w ill continue to follow the patient during this hospital stay. FRANCHESCA MOHAMUD OMS-3 Aug 13, 2019 10:53 TREV LEDEZMA MD Aug 13, 2019 15:14
[2019-08-13 14:00] VITALS: BP 103/68
[2019-08-13] MEDS: WARFARIN SOD 2.5 MG TAB PO SCH (17:09)
[2019-08-13] MEDS: LATANOPROST 0.005% OPHTH SOLN 2.5 ML OU SCH (20:51)
[2019-08-13 22:00] VITALS: BP 110/69
[2019-08-14 06:00] VITALS: BP 118/70
[2019-08-14 06:21] LABS: HEMATOCRIT 30.1 % (42.0-52.0); HEMOGLOBIN 10.1 g/dl (13.5-17.5); MEAN CORPUSCULAR HEMOGLOBIN 31.8 pg (27.0-33.0); MEAN CORPUSCULAR HGB CONC 33.6 g/dl (32.0-36.5); MEAN CORPUSCULAR VOLUME 94.7 fl (80.0-96.0); PLATELET COUNT, AUTOMATED 199 10^3/uL (150-450); RED BLOOD COUNT 3.18 10^6/uL (4.30-6.10); WHITE BLOOD COUNT 5.8 10^3/uL (4.0-10.0)
[2019-08-14 06:31] LABS: INR 2.22; PROTHROMBIN TIME 24.4 SECONDS (11.8-14.0)
[2019-08-14 06:45] LABS: BLOOD UREA NITROGEN 20 MG/DL (7-18); CALCIUM LEVEL 8.2 MG/DL (8.8-10.2); CARBON DIOXIDE LEVEL 30 MEQ/L (21-32); CHLORIDE LEVEL 105 MEQ/L (98-107); CREATININE FOR GFR 1.17 MG/DL (0.70-1.30); GLOMERULAR FILTRATION RATE > 60.0 (>42); GLUCOSE, FASTING 90 MG/DL (70-100); POTASSIUM SERUM 3.7 MEQ/L (3.5-5.1); SODIUM LEVEL 139 MEQ/L (136-145)
[2019-08-14] MEDS: HumaLOG INSULIN (NovoLOG) PER UNIT SC SCH (07:30)
[2019-08-14 08:18] VITALS: BP 118/70
[2019-08-14] MEDS: ATORVASTATIN 20 MG TAB PO SCH (08:18)
[2019-08-14] MEDS: POTASSIUM CHLORIDE 10 MEQ SR TABLET PO SCH (08:18)
[2019-08-14] MEDS: amLODIPine 5 MG TAB PO SCH (08:18)
[2019-08-14] MEDS: ATENOLOL 50 MG TAB PO SCH (08:19)
[2019-08-14] MEDS: LOSARTAN 50 MG TAB PO SCH (08:19)
[2019-08-14] MEDS: FUROSEMIDE 40 MG TAB PO SCH (08:19)
[2019-08-14] MEDS: PRAMIPEXOLE 0.25 MG TAB PO SCH (08:19)
[2019-08-14] MEDS: GLIMEPIRIDE 1 MG TABLET PO SCH (08:19)
[2019-08-14] MEDS: AMIODARONE 100MG TABLET (PACERONE) PO SCH (08:20)
--- NOTE | 2019-08-14 11:30 | DS.PDOC ---
Discharge Summary General Date of Admission Aug 11, 2019 at 06:20 Date of Discharge 08/14/2019 Discharge Summary PROCEDURES PERFORMED DURING STAY: None ADMITTING DIAGNOSES / DISCHARGE DIAGNOSES: Acute metabolic encephalopathy - likely 2/2 medications Atrial fibrillation History of congestive heart failure Hypertension Chronic kidney disease, stage III Dyslipidemia. Type 2 diabetes Familial essential tremors Recent fall, secondary to gait imbalance DVT prophylaxis COMPLICATIONS/CHIEF COMPLAINT: Confusion HISTORY OF PRESENT ILLNESS: This is a 79-year-old male FULL CODE, brought in by family due to worsening hallucinations which started Monday evening. According to the sister who lives with the patient at home, the patient has been seeing things, talking to people who are not in the room. Has been increasingly agitated at home and not making any sense since benztropine was started last Monday for tremors. Due to multiple comorbidities other medications could not be given according to the patient's sister and since he has been on benztropine patient has been talking to people who are not there, grabbing things in thin air. He has conversations such as inviting people to sit down and introducing his sister, saying "you remember my sister here". He said that there are four baths in the bathroom yesterday. He said that there was an accident in front of the house when there was not. He has not been sleeping for the past one to two nights. Gets startled easily and jumps up and asked "what is over there, what is going on?". Patient took his hat and coat and got up to take his girlfriend home. Patient currently is not in a relationship. The sister had to remind him that he was at home and that there was no one to take home. He told his sister that there are two teenagers outside with 4 x 4 lumber trying to do something to his truck. He went out to lock his truck, but there were no teenagers outside that the sister could see. When the sister asked where are the kids, the patient said "oh they are around the house somewhere". According to the rest of the family including his [id number] and his friend Len who are present at the bedside, the patient recognizes them, abl e to converse adequately and appropriately, but within a few minutes, patient then goes off and has more hallucinations and says that he is also hearing voices. He asked his sister if he could stay here referring to the house and she said to him that he does live there with her and that it would be alright. He was brought in to the hospital, CT of the head was negative due to worsening gait imbalance. He did fall at home, landing on his left thigh with a bruise because he had a thermometer in his pocket and he landed on this, while he is on Coumadin. CT of the head did not show any hematoma. Due to chronic cough, which is nonproductive, without fever or chills, chest x-ray was performed, which was also negative. CBC, metabolic panel, cardiac markers were all essentially unremarkable. TSH was normal. Urine toxicology screen was negative. Urinalysis head was also clean with no signs of polyuria or bacteruria. Hospitalist was called to admit for acute delirium most likely secondary to medication given at the correct dose with an adverse reaction. HOSPITAL COURSE: On admission Mr. Bonner's newly prescribed Benztropine was discontinued. He was placed on daily fingersticks, sliding scale, hypoglycemic protocol, and 2 gram sodium diet. Daily CBCs and BMPs were ordered daily. PT and OT evaluations and treatment were performed during his stay and he passed their evaluations prior to discharge. His PT and INR were measured daily and showed therapeutic levels of Warfarin for his A. Fib. A Echocardiogram was performed and showed previously known moderate aortic stenosis with no acute changes. Head CT and Chest X-ray were taken and were negative for acute pathologies. Neurology was consulted and their recommendations were appreciated. His mentation improved throughout his stay each day and he appears to be back at baseline prior to discharge. Patient has been advised to follow-up with his primary care provider, Dr. Priscilla Liriano as well as Dr. Gunderson within the next 7 days he's been advised to remain compliant with treatment plan and medications. Patient has been advised to return to the emergency room if he experiences any problems. DISCHARGE MEDICATIONS: Please see below. ALLERGIES: Please see below. PHYSICAL EXAMINATION ON DISCHARGE: VITAL SIGNS: Please see below. General: Mr. Bonner is a 79 year old male laying in his bed in no apparent distress. Speech seems improved. HEENT: Atraumatic, normocephalic, EOMI, PERRLA. Trachea midline Respiratory: Lungs CTA B/L. No rales, rhonchi, stridor noted Cardiovascular: Grade 2/6 systolic murmur noted on exam consistent with echocardiogram report of Aortic stenosis. Normal and regular ventricular rate noted. No knocks or rubs noted. GI: Umbilical hernia noted. Abdomen appears distended. No guarding, bruising, organomegaly palpated. Psych: Well mannered, cooperative to exam, full affect noted, appropriate answers. Does not appear to be responding to internal stimuli Neuro: Alert and Aware X3. Muscle strength 5/5 in all UE and LE planes. Cranial nerves II-XII grossly intact. Intention tremor noted in UE B/L. LABORATORY DATA: Please see below. IMAGING: Chest X-Ray (08/11): No acute cardiopulmonary process appreciated Head CT (08/11): No acute intracranial abnormality. PROGNOSIS: fair ACTIVITY: [As tolerated]. DIET: 2 gram sodium diet DISCHARGE PLAN: Follow up with Neurology within 1 week Participate in prescribed outpatient PT treatment Continue to take medications as prescribed Return to the emergency room if you experience any problems DISCHARGE CONDITION: [Stable]. TIME SPENT ON DISCHARGE: Greater than 45 minutes. Vital Signs/I&Os Vital Signs Date Time Temp Pulse Resp B/P (MAP) Pulse Ox O2 Delivery O2 Flow Rate FiO2 08/14/19 08:18 78 118/70 08/14/19 06:00 98.2 18 96 08/13/19 22:00 Room Air I&O- Last 24 Hours up to 6 AM 08/14/19 06:00 Intake Total 1380 ml Balance 1380 ml Laboratory Data Labs 24H Laboratory Tests 2 08/13/19 11:26: Bedside Glucose (Misc Panel) 187H 08/13/19 17:09: Bedside Glucose (Misc Panel) 112H 08/13/19 20:15: Bedside Glucose (Misc Panel) 163H 08/14/19 06:05: Nucleated Red Blood Cells % (auto) 0.0, Prothrombin Time 24.4H, Prothromb Time International Ratio 2.22, Anion Gap 4L, Glomerular Filtration Rate > 60.0, Calcium Level 8.2L CBC/BMP Laboratory Tests 08/14/19 06:05 FSBS Laboratory Tests Test 08/13/19 11:26 08/13/19 17:09 08/13/19 20:15 Range/Units Bedside Glucose (Misc Panel) 187 112 163 83-110 MG/DL Discharge Medications Scheduled Amiodarone HCl (Amiodarone HCl) 100 Mg Tablet, 100 MG PO DAILY, (Reported) Amlodipine Besylate (Amlodipine Besylate) 5 Mg Tab, 5 MG PO DAILY, (Reported) Atenolol (Atenolol) 100 Mg Tab, 50 MG PO BID, (Reported) Atorvastatin Calcium (Atorvastatin Calcium) 40 Mg Tab, 40 MG PO DAILY, (Reported) Ergocalciferol (Vitamin D2) (Drisdol) 50,000 Unit Cap, 50,000 UNIT PO QMONTH, (Reported) FIRST OF THE MONTH Furosemide (Furosemide) 40 Mg Tab, 40 MG PO DAILY, (Reported) Glimepiride (Glimepiride) 1 Mg Tab, 1 MG PO DAILY, (Reported) Losartan Potassium (Losartan Potassium) 100 Mg Tab, 100 MG PO DAILY, (Reported) Metformin HCl (Metformin ER Gastric) 500 Mg Tab, 2,000 MG PO QPM, (Reported) Petrolatum,White (Aquaphor with Natural Healing) 50 Gm Oint...g., 1 APLCT TOP DAILY, (Reported) APPLIES TO LEGS Potassium Chloride (Potassium Chloride) 20 Meq Tab, 20 MEQ PO DAILY, (Reported) Pramipexole Di-HCl (Mirapex) 0.5 Mg Tablet, 0.5 MG PO TID, (Reported) Travoprost (Travatan Z) 50 Drop/2.5 Ml Soln, 1 DROP OU QHS, (Reported) Warfarin Sodium (Warfarin Sodium) 5 Mg Tablet, 5 MG PO 3XW, (Reported) MONDAY, MONDAY, MONDAY Warfarin Sodium (Warfarin Sodium) 5 Mg Tablet, 2.5 MG PO 4XWK, (Reported) MONDAY, MONDAY, MONDAY, MONDAY Scheduled PRN Propylene Glycol/Peg 400/Pf (Systane 0.3-0.4% Eye Drop) 1 Each Droperette, 1 DROP OU QHS PRN for DRY EYES, (Reported) Allergies Coded Allergies: No Known Allergies (Unverified , 08/11/19) GME ATTESTATION GME ATTESTATION My faculty preceptor for this patient encounter was physically present during the encounter and was fully available. All aspects of the patient interview, examination, medical decision making process, and medical care plan development were reviewed and approved by the faculty preceptor. The faculty preceptor is aware and concurs with the plan as stated in the body of this note and will attest to such by his/her cosignature. ATTENDING NOTE I, Trev Coulter, have independently examined this patient and performed my own physical exam, as well as reviewed the documentation and edited where necessary. I have discussed in detail with the resident / student the findings and plan of treatment as documented by the resident / student and edited their note. I agree with their findings and treatment plan and have edited their docume ntation. I will continue to follow the patient during this hospital stay. Time spent on discharge 35 minutes FRANCHESCA MOHAMUD OMS-3 Aug 14, 2019 11:30 TREV COULTER MD Aug 14, 2019 14:04
== END 2019-08-14 12:06 | disposition home or self-care (01) | DRG 92 ==
LOC: M ED 01:12 → M ED INP 01:13 → M MSPAV 05:26 → OBSVTOIN 06:20 → M MSPAV 08:12
PROVIDERS: ADMIT General Practice; ATTEND Internal Medicine
DX: G92 Toxic encephalopathy (principal); I13.0 Hypertensive heart and chronic kidney disease with heart failure and stage 1 through stage 4 chronic kidney disease, or unspecified chronic kidney disease; I50.32 Chronic diastolic (congestive) heart failure; T42.8X5A Adverse effect of antiparkinsonism drugs and other central muscle-tone depressants, initial encounter; N18.3 Chronic kidney disease, stage 3 (moderate); G25.0 Essential tremor; I48.91 Unspecified atrial fibrillation; E78.5 Hyperlipidemia, unspecified; R26.81 Unsteadiness on feet; Z79.899 Other long term (current) drug therapy; Z79.01 Long term (current) use of anticoagulants; E66.9 Obesity, unspecified; Z68.35 Body mass index [BMI] 35.0-35.9, adult; I25.10 Atherosclerotic heart disease of native coronary artery without angina pectoris; I35.0 Nonrheumatic aortic (valve) stenosis; I27.20 Pulmonary hypertension, unspecified; H40.9 Unspecified glaucoma; E87.6 Hypokalemia

== ENCOUNTER → 2019-08-26 | Outpatient (CLI) | payer MEDICARE ==
[~2019-08-26] MED LIST changes: +AMIO0.1T PO; +AQUAOIN12 TOP; +BENZ0.5T23 PO; +BENZ2TAB5 PO; +MIRA0.5T PO; +SYST1SOL4 OU
[2019-08-26 08:00] LABS: BASO # 0.1 10^3/uL (0.0-0.2); BASO % 0.7 % (0.0-1.0); EOS # 0.2 10^3/uL (0.0-0.5); EOS % 3.2 % (0.0-3.0); HEMATOCRIT 33.1 % (42.0-52.0); LYMPH # 1.4 10^3/uL (1.5-5.0); LYMPH % 19.9 % (24.0-44.0); MEAN CORPUSCULAR HEMOGLOBIN 31.5 pg (27.0-33.0); MEAN CORPUSCULAR HGB CONC 33.2 g/dl (32.0-36.5); MEAN CORPUSCULAR VOLUME 94.8 fl (80.0-96.0); MONO # 0.5 10^3/uL (0.0-0.8); MONO % 7.2 % (0.0-5.0); NEUTROPHILS # 4.8 10^3/uL (1.5-8.5); NEUTROPHILS % 68.4 % (36.0-66.0); PLATELET COUNT, AUTOMATED 260 10^3/uL (150-450); RED BLOOD COUNT 3.49 10^6/uL (4.30-6.10)
[2019-08-26 10:21] LABS: HEMOGLOBIN A1c 6.2 %
== END ==
LOC: M LAB 07:19
PROVIDERS: ATTEND Family Medicine
DX: E11.69 Type 2 diabetes mellitus with other specified complication (principal)

== ENCOUNTER → 2019-09-16 | Outpatient (CLI) | payer MEDICARE ==
[2019-09-16 09:31] LABS: INR 2.72; PROTHROMBIN TIME 28.7 SECONDS (11.8-14.0)
== END ==
LOC: M LAB 07:51
PROVIDERS: ATTEND Physician Assistant
DX: I48.0 Paroxysmal atrial fibrillation (principal)

== ENCOUNTER → 2019-09-17 | Outpatient (CLI) | payer MEDICARE ==
[2019-09-17 08:21] LABS: HEMATOCRIT 33.1 % (42.0-52.0); HEMOGLOBIN 10.8 g/dl (13.5-17.5); MEAN CORPUSCULAR HEMOGLOBIN 31.5 pg (27.0-33.0); MEAN CORPUSCULAR HGB CONC 32.6 g/dl (32.0-36.5); MEAN CORPUSCULAR VOLUME 96.5 fl (80.0-96.0); PLATELET COUNT, AUTOMATED 235 10^3/uL (150-450); RED BLOOD COUNT 3.43 10^6/uL (4.30-6.10); WHITE BLOOD COUNT 5.8 10^3/uL (4.0-10.0)
[2019-09-17 08:39] LABS: ALBUMIN 3.8 GM/DL (3.2-5.2); ALT/SGPT 25 U/L (12-78); BILIRUBIN,TOTAL 0.6 MG/DL (0.2-1.0); BLOOD UREA NITROGEN 23 MG/DL (7-18); CALCIUM LEVEL 8.4 MG/DL (8.8-10.2); CARBON DIOXIDE LEVEL 32 MEQ/L (21-32); CHLORIDE LEVEL 102 MEQ/L (98-107); GLOMERULAR FILTRATION RATE > 60.0 (>42); GLUCOSE, FASTING 111 MG/DL (70-100); MAGNESIUM LEVEL 2.2 MG/DL (1.8-2.4); POTASSIUM SERUM 3.9 MEQ/L (3.5-5.1); SODIUM LEVEL 138 MEQ/L (136-145); TOTAL PROTEIN 7.2 GM/DL (6.4-8.2)
== END ==
LOC: M LAB 07:32
PROVIDERS: ATTEND Physician Assistant
DX: I50.32 Chronic diastolic (congestive) heart failure (principal); I48.0 Paroxysmal atrial fibrillation

== ENCOUNTER → 2019-10-14 | Outpatient (CLI) | payer MEDICARE ==
[2019-10-14 08:38] LABS: INR 2.6; PROTHROMBIN TIME 27.7 SECONDS (11.8-14.0)
== END ==
LOC: M LAB 07:50
PROVIDERS: ATTEND Physician Assistant
DX: I48.0 Paroxysmal atrial fibrillation (principal)

== ENCOUNTER → 2019-11-11 | Outpatient (CLI) | payer MEDICARE ==
[~2019-11-11] MED LIST changes: -GLIM1TAB2 PO; +GLIM1TAB4 PO
[2019-11-11 09:24] LABS: INR 2.29
== END ==
LOC: M LAB 07:28
PROVIDERS: ATTEND Physician Assistant
DX: I48.0 Paroxysmal atrial fibrillation (principal)

== ENCOUNTER → 2019-11-27 | Outpatient (CLI) | payer MEDICARE ==
[2019-11-27 08:24] LABS: BASO % 0.4 % (0.0-1.0); EOS # 0.2 10^3/uL (0.0-0.5); EOS % 2.3 % (0.0-3.0); HEMATOCRIT 34.8 % (42.0-52.0); HEMOGLOBIN 11.4 g/dl (13.5-17.5); LYMPH # 1.1 10^3/uL (1.5-5.0); LYMPH % 15.3 % (24.0-44.0); MEAN CORPUSCULAR HEMOGLOBIN 31.1 pg (27.0-33.0); MEAN CORPUSCULAR HGB CONC 32.8 g/dl (32.0-36.5); MEAN CORPUSCULAR VOLUME 94.8 fl (80.0-96.0); MONO # 0.5 10^3/uL (0.0-0.8); MONO % 7.1 % (0.0-5.0); NEUTROPHILS # 5.6 10^3/uL (1.5-8.5); NEUTROPHILS % 74.5 % (36.0-66.0); PLATELET COUNT, AUTOMATED 221 10^3/uL (150-450); RED BLOOD COUNT 3.67 10^6/uL (4.30-6.10); WHITE BLOOD COUNT 7.5 10^3/uL (4.0-10.0)
[2019-11-27 09:00] LABS: ALBUMIN 3.6 GM/DL (3.2-5.2); BILIRUBIN,TOTAL 0.6 MG/DL (0.2-1.0); CALCIUM LEVEL 8.2 MG/DL (8.8-10.2); CHOLESTEROL RISK RATIO 3.026 (<5); CREATININE FOR GFR 1.27 MG/DL (0.70-1.30); GLOMERULAR FILTRATION RATE 58.4 (>42); POTASSIUM SERUM 4.3 MEQ/L (3.5-5.1); TOTAL PROTEIN 6.8 GM/DL (6.4-8.2)
[2019-11-27 09:12] LABS: MALB URINE SIEMENS 80.3 MG/L; MAU/CREAT RATIO 31.9 MCG/MG (0.0-30.0)
[2019-11-27 10:04] LABS: HEMOGLOBIN A1c 6.5 %
== END ==
LOC: M LAB 07:06
PROVIDERS: ATTEND Family Medicine
DX: E11.69 Type 2 diabetes mellitus with other specified complication (principal)

== ENCOUNTER → 2019-12-09 | Outpatient (CLI) | payer MEDICARE ==
[2019-12-09 11:47] LABS: INR 2.96; PROTHROMBIN TIME 30.7 SECONDS (11.8-14.0)
== END ==
LOC: M LAB 10:52
PROVIDERS: ATTEND Physician Assistant
DX: I48.0 Paroxysmal atrial fibrillation (principal)

== ENCOUNTER → 2019-12-16 | Outpatient (CLI) | payer MEDICARE ==
[2019-12-16 09:46] LABS: HEMATOCRIT 33.1 % (42.0-52.0); MEAN CORPUSCULAR HEMOGLOBIN 31.2 pg (27.0-33.0); MEAN CORPUSCULAR HGB CONC 33.2 g/dl (32.0-36.5); MEAN CORPUSCULAR VOLUME 93.8 fl (80.0-96.0); PLATELET COUNT, AUTOMATED 239 10^3/uL (150-450); RED BLOOD COUNT 3.53 10^6/uL (4.30-6.10); WHITE BLOOD COUNT 6.7 10^3/uL (4.0-10.0)
[2019-12-16 10:16] LABS: CALCIUM LEVEL 8.5 MG/DL (8.8-10.2); CREATININE FOR GFR 1.26 MG/DL (0.70-1.30); GLOMERULAR FILTRATION RATE 58.9 (>42); POTASSIUM SERUM 4.4 MEQ/L (3.5-5.1)
== END ==
LOC: M LAB 08:40
PROVIDERS: ATTEND Physician Assistant
DX: I49.5 Sick sinus syndrome (principal)

== ENCOUNTER 2019-12-30 10:11 | Day surgery (SDC) | payer MEDICARE ==
[~2019-12-30] VITALS: Ht 177.8 cm; Wt 108.5 kg
[~2019-12-30 10:11] MED LIST changes: +LIDOCAINE 1% MDV 20ML VIAL SQ PRN; +LR 1,000 ML IV ONE; +VITA50005 PO; +ceFAZolin SOD 1 GM in D5W MINI-BAG PLUS 50 ML IV ONE
[2019-12-30] MEDS ORDERED: BACITRACIN PWD 50,000 UNITS VIAL As Ordered ONE (10:41)
[2019-12-30] MEDS ORDERED: AMIODARONE 150MG/3ML INJ (J0282) As Ordered ONE (10:41)
[2019-12-30] MEDS ORDERED: LIDOCAINE 1% MDV 20ML VIAL As Ordered ONE (10:41)
[2019-12-30 10:49] LABS: INR 1.28; PROTHROMBIN TIME 15.7 SECONDS (11.8-14.0)
[2019-12-30] MEDS ORDERED: fentaNYL 100 MCG/2 ML INJECTION (J3010) As Ordered ONE (11:19)
[2019-12-30] MEDS ORDERED: MIDAZOLAM INJ 2 MG/2 ML VIAL (J2250) As Ordered ONE (11:19)
[2019-12-30] MEDS ORDERED: ONDANSETRON 4MG/2ML VIAL (J2405) As Ordered ONE (11:19)
[2019-12-30] MEDS ORDERED: propofoL 200 MG/20 ML VIAL As Ordered ONE (12:47)
[2019-12-30 13:45] VITALS: BP 158/89
--- NOTE | 2019-12-30 14:08 | RO ---
DATE OF PROCEDURE: 12/30/2019 PROCEDURES: 1. Explantation of depleted pacemaker battery. 2. Testing old atrial and ventricular pacing leads. 3. Implantation of new dual-chamber pulse generator. IMPLANTING VOCATIONAL TECHNICAL EDUCATION DIRECTOR: Dr. Eamon Kowalski ANESTHESIOLOGIST: Dr. Clifton PREOPERATIVE DIAGNOSES: 1. Pacemaker battery depletion. 2. Sinus node dysfunction. POSTOPERATIVE DIAGNOSES: 1. Pacemaker battery depletion. 2. Sinus node dysfunction. TYPE OF ANESTHESIA: Monitored local anesthesia. 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) January 2010. She has been monitored on a regular basis through our office and recently has been found to show his device at the elective replacement indicator. Customarily is limited by shortness of breath. Denies chest pain, palpitations, near-syncope/syncope, embolic phenomenon, or claudication. On examination, he is an obese, somewhat barrel-chested elderly male who laid comfortably. Heart rate 60 beats per minute (BPM) and regular, blood pressure 128/76, respiratory rate 16 per minute. No pallor or cyanosis. Normal oral moisture. Trachea midline. Neck veins 3 cm above the sternal angle. Slightly increased anteroposterior chest diameter with good air entry over both lung miller and no abnormal pulmonary adventitious sounds. Well-healed pacemaker incision left subclavian region. Apical impulse not palpable. Heart sounds somewhat distant. No audible gallop but has a soft systolic ejection murmur at the left base that radiates to the neck. Soft, obese abdomen. 1 mm pitting edema half the way up both lower legs. Pedal pulses were symmetrical and normal. Bright, alert, and oriented. Electrocardiogram (EKG) shows consistent atrially paced rhythm with spontaneous AV conduction and narrow spontaneous QRS complexes. Nonspecific ST/T-wave abnormalities. No change from March 2017. Blood work 12/16/2019 showed hemoglobin of 11, normal white blood cell count and platelet count. Electrolytes were normal with BUN 23, creatinine 1.26, random glucose 114. DESCRIPTION OF PROCEDURE: In the fasting state following informed consent and Ancef 2 grams intravenous (IV) premedication, the patient was taken to the operating theater. Numerous skin electrodes were applied to facilitate continuous electrocardiographic monitoring. The left subclavian region was prepped and draped in the usual fashion. The skin over the old pacemaker incision was infiltrated with 1% Xylocaine, and a 5-cm linear incision was made over the same site. Careful dissection was carried down to the level of the depleted pacemaker, which was then explanted ([employer] [facility] [place] model number 5826, serial number [id number], originally implanted January 12, 2010). The individual atrial and ventricular pacing leads were then disconnected and tested. The right ventricular lead ([employer], model number 1688T, serial number [id number]) measurements were focal and stimulation threshold 1.2, V/0.4 ms/Impedance 520 ohms. The R wave amplitude measured 11.7 mV. The atrial lead ([employer] 1688T, serial number [id number]) measurements were: Stimulation threshold 0.8V/0.4 ms/Impedance 419 ohms. The P wave amplitude measured 3.1 mV. These old pacing leads were then connected to a new dual-chamber pulse generator ([employer] - [employer] MRI compatible, model number [id number], serial number [id number]) and appropriate DDD pacing was documented. The old pacer pocket was thoroughly irrigated with the bacitracin solution. The new dual-chamber pulse generator was then placed in the pocket and secured in position with a suture through the upper right-hand corner of the epoxy header. The subcutaneous tissues were approximated using a running chromic suture, and the skin was closed using kasey. A dry dressing was applied. The patient was returned to the recovery room in good condition. No apparent complications. Estimated blood loss less than 2 mL. Once the patient is able to take by mouth and ambulate, he will be able to be discharged home. DISCHARGE MEDICATIONS AND RECOMMENDATIONS: The patient was resume his modest salt and fluid intake restriction. Activity was to be as tolerated except for light activity with his left arm until his kasey are removed in our office on 01/06/2020 at 7:45 a.m.. These medications were to continue: amiodarone 100 mg daily, atenolol 50 mg twice a day, Coumadin 5 mg tablets as directed, losartan 100 mg daily, furosemide 40 mg daily as directed, KCl ER 20 mEq daily, amlodipine 2.5 mg daily, Lipitor 40 mg nightly, metformin ER 500 mg tablets four daily, glimepiride 1 mg daily, Travatan Z 0.004% eyedrops both eyes nightly, Patanol 0.1% eyedrops as directed, Systane eyedrops 0.4-0.3% one drop each eye twice a day, pramipexole 0.5 mg tablets one tablet three times a day, vitamin D 50,000 units by mouth weekly. We have encouraged him to avoid getting his incision wet, employing only light activities of daily living with his left arm until his kasey are removed. He has been encouraged to contact us promptly for any abnormal erythema, swelling, or discharge.
== END 2019-12-30 14:15 | disposition home or self-care (01) ==
LOC: M SDC 10:11
PROVIDERS: ATTEND Internal Medicine Cardiovascular Disease
DX: Z45.010 Encounter for checking and testing of cardiac pacemaker pulse generator [battery] (principal); I49.5 Sick sinus syndrome; I11.0 Hypertensive heart disease with heart failure; I50.32 Chronic diastolic (congestive) heart failure; I25.2 Old myocardial infarction; E78.00 Pure hypercholesterolemia, unspecified; E11.9 Type 2 diabetes mellitus without complications; E66.9 Obesity, unspecified; Z68.34 Body mass index [BMI] 34.0-34.9, adult; H40.9 Unspecified glaucoma; N40.0 Benign prostatic hyperplasia without lower urinary tract symptoms; G47.30 Sleep apnea, unspecified; M19.90 Unspecified osteoarthritis, unspecified site; Z79.899 Other long term (current) drug therapy; Z79.01 Long term (current) use of anticoagulants; Z79.84 Long term (current) use of oral hypoglycemic drugs; Z88.8 Allergy status to other drugs, medicaments and biological substances
CPT/HCPCS: 33228; 36415; 85610; C1785; J0690; J2250; J2405; J3010

== ENCOUNTER → 2020-01-06 | Outpatient (CLI) | payer MEDICARE ==
[~2020-01-06] MED LIST changes: -LIDOCAINE 1% MDV 20ML VIAL SQ PRN; -LR 1,000 ML IV ONE; -ceFAZolin SOD 1 GM in D5W MINI-BAG PLUS 50 ML IV ONE
[2020-01-06 09:21] LABS: INR 1.81; PROTHROMBIN TIME 20.7 SECONDS (11.8-14.0)
== END ==
LOC: M LAB 08:19
PROVIDERS: ATTEND Physician Assistant
DX: I48.0 Paroxysmal atrial fibrillation (principal)

== ENCOUNTER → 2020-01-20 | Outpatient (CLI) | payer MEDICARE ==
[2020-01-20 08:29] LABS: INR 2.61; PROTHROMBIN TIME 27.8 SECONDS (11.8-14.0)
== END ==
LOC: M LAB 07:26
PROVIDERS: ATTEND Physician Assistant
DX: I48.0 Paroxysmal atrial fibrillation (principal); Z79.01 Long term (current) use of anticoagulants

== ENCOUNTER → 2020-02-03 | Outpatient (CLI) | payer MEDICARE ==
[2020-02-03 10:13] LABS: INR 2.82; PROTHROMBIN TIME 29.5 SECONDS (11.8-14.0)
== END ==
LOC: M LAB 09:36
PROVIDERS: ATTEND Physician Assistant
DX: I48.0 Paroxysmal atrial fibrillation (principal)

== ENCOUNTER → 2020-03-04 | Outpatient (CLI) | payer MEDICARE ==
[2020-03-04 08:01] LABS: INR 1.82; PROTHROMBIN TIME 20.8 SECONDS (11.8-14.0)
== END ==
LOC: M LAB 07:04
PROVIDERS: ATTEND Physician Assistant
DX: I48.0 Paroxysmal atrial fibrillation (principal)

== ENCOUNTER → 2020-03-16 | Outpatient (CLI) | payer MEDICARE ==
[2020-03-16 09:40] LABS: INR 2.42; PROTHROMBIN TIME 26.1 SECONDS (11.8-14.0)
== END ==
LOC: M LAB 08:57
PROVIDERS: ATTEND Physician Assistant
DX: Z51.81 Encounter for therapeutic drug level monitoring (principal); Z79.01 Long term (current) use of anticoagulants; I48.0 Paroxysmal atrial fibrillation

== ENCOUNTER → 2020-03-23 | Outpatient (CLI) | payer MEDICARE ==
--- NOTE | 2020-03-23 08:08 | REP ---
CHEST X-RAY: Two views. HISTORY: Paroxysmal atrial fibrillation. COMPARISON STUDY: August 11, 2019. FINDINGS: A bipolar pacemaker remains in the right heart via the left side. There is mild linear fibrosis in each lung base. Lungs are otherwise clear. Pleural angles are sharp. Heart is not enlarged. Pulmonary vasculature is not increased. There are minimal degenerative changes in the thoracic spine. IMPRESSION: No active cardiopulmonary disease. Pacemaker in place. Electronically Signed by Will Monte MD 03/23/2020 02:50 P
[2020-03-23 08:38] LABS: BLOOD UREA NITROGEN 26 MG/DL (7-18); CALCIUM LEVEL 8.8 MG/DL (8.8-10.2); CARBON DIOXIDE LEVEL 27 MEQ/L (21-32); CHLORIDE LEVEL 107 MEQ/L (98-107); CREATININE FOR GFR 1.22 MG/DL (0.70-1.30); GLOMERULAR FILTRATION RATE > 60.0 (>42); GLUCOSE, FASTING 102 MG/DL (70-100); POTASSIUM SERUM 4.1 MEQ/L (3.5-5.1); SODIUM LEVEL 140 MEQ/L (136-145)
== END ==
LOC: M LAB 07:17
PROVIDERS: ATTEND Physician Assistant
DX: I50.32 Chronic diastolic (congestive) heart failure (principal)

== ENCOUNTER → 2020-04-13 | Outpatient (CLI) | payer MEDICARE ==
[2020-04-13 07:47] LABS: INR 1.98; PROTHROMBIN TIME 22.3 SECONDS (11.8-14.0)
== END ==
LOC: M LAB 07:07
PROVIDERS: ATTEND Physician Assistant
DX: I48.0 Paroxysmal atrial fibrillation (principal)

== ENCOUNTER → 2020-05-11 | Outpatient (CLI) | payer MEDICARE ==
[~2020-05-11] MED LIST changes: -AMIO200T PO; +AMIO200T3 PO; +AMLO1TAB24 PO; -AMLO5TAB6 PO; -METF-699 PO; +METF-817 PO
[2020-06-14 03:00] LABS: PROTHROMBIN TIME 24.1 SECONDS (11.8-14.0)
[2020-06-14 03:01] LABS: INR 2.1
== END ==
LOC: M LAB 07:30
PROVIDERS: ATTEND Physician Assistant
DX: Z79.01 Long term (current) use of anticoagulants (principal)

== ENCOUNTER → 2020-06-11 | Outpatient (CLI) | payer MEDICARE ==
[2020-06-11 09:30] LABS: INR 2.13; PROTHROMBIN TIME 24.3 SECONDS (11.8-14.0)
== END ==
LOC: M LAB 07:21
PROVIDERS: ATTEND Physician Assistant
DX: I48.0 Paroxysmal atrial fibrillation (principal); Z79.01 Long term (current) use of anticoagulants

== ENCOUNTER → 2020-06-16 | Outpatient (CLI) | payer MEDICARE ==
[2020-06-16 14:54] LABS: CALCIUM LEVEL 8.8 MG/DL (8.8-10.2); CREATININE FOR GFR 1.32 MG/DL (0.70-1.30); GLOMERULAR FILTRATION RATE 55.8 (>42); POTASSIUM SERUM 4.2 MEQ/L (3.5-5.1)
== END ==
LOC: M LAB 08:43
PROVIDERS: ATTEND Physician Assistant
DX: I50.32 Chronic diastolic (congestive) heart failure (principal)

== ENCOUNTER → 2020-07-09 | Outpatient (CLI) | payer MEDICARE ==
[2020-07-09 08:17] LABS: INR 1.78; PROTHROMBIN TIME 21.1 SECONDS (12.5-14.3)
== END ==
LOC: M LAB 07:26
PROVIDERS: ATTEND Physician Assistant
DX: I48.0 Paroxysmal atrial fibrillation (principal)

== ENCOUNTER → 2020-07-22 | Outpatient (CLI) | payer MEDICARE ==
[2020-07-22 08:41] LABS: INR 2.03; PROTHROMBIN TIME 23.4 SECONDS (12.5-14.3)
== END ==
LOC: M LAB 07:15
PROVIDERS: ATTEND Physician Assistant
DX: I48.0 Paroxysmal atrial fibrillation (principal); Z79.01 Long term (current) use of anticoagulants

== ENCOUNTER → 2020-08-19 | Outpatient (CLI) | payer MEDICARE ==
[2020-08-19 08:34] LABS: INR 1.87; PROTHROMBIN TIME 21.9 SECONDS (12.5-14.3)
== END ==
LOC: M LAB 07:19
PROVIDERS: ATTEND Physician Assistant
DX: I48.0 Paroxysmal atrial fibrillation (principal)

== ENCOUNTER → 2020-09-02 | Outpatient (CLI) | payer MEDICARE ==
[2020-09-02 08:19] LABS: INR 2.21
== END ==
LOC: M LAB 07:12
PROVIDERS: ATTEND Physician Assistant
DX: I48.0 Paroxysmal atrial fibrillation (principal); Z79.01 Long term (current) use of anticoagulants

== ENCOUNTER → 2020-10-19 | Outpatient (CLI) | payer MEDICARE ==
[2020-10-19 08:19] LABS: INR 2.15; PROTHROMBIN TIME 24.5 SECONDS (12.5-14.3)
== END ==
LOC: M LAB 07:13
PROVIDERS: ATTEND Physician Assistant
DX: I48.0 Paroxysmal atrial fibrillation (principal); Z79.01 Long term (current) use of anticoagulants

== ENCOUNTER → 2020-11-16 | Outpatient (CLI) | payer MEDICARE ==
[~2020-11-16] MED LIST changes: -LISI40TA PO; +LISI40TA4 PO
[2020-11-16 08:58] LABS: INR 2.11; PROTHROMBIN TIME 24.1 SECONDS (12.5-14.3)
== END ==
LOC: M LAB 07:10
PROVIDERS: ATTEND Physician Assistant
DX: I48.0 Paroxysmal atrial fibrillation (principal)

== ENCOUNTER → 2020-11-30 | Outpatient (CLI) | payer MEDICARE ==
[2020-11-30 08:23] LABS: BASO % 0.6 % (0.0-1.0); EOS # 0.1 10^3/uL (0.0-0.5); EOS % 2.1 % (0.0-3.0); HEMATOCRIT 34.6 % (42.0-52.0); LYMPH # 1.4 10^3/uL (1.5-5.0); LYMPH % 21.5 % (24.0-44.0); MEAN CORPUSCULAR HEMOGLOBIN 30.8 pg (27.0-33.0); MEAN CORPUSCULAR HGB CONC 31.8 g/dl (32.0-36.5); MEAN CORPUSCULAR VOLUME 96.9 fl (80.0-96.0); MONO # 0.5 10^3/uL (0.0-0.8); MONO % 7.2 % (2.0-8.0); NEUTROPHILS # 4.4 10^3/uL (1.5-8.5); NEUTROPHILS % 67.8 % (36.0-66.0); PLATELET COUNT, AUTOMATED 227 10^3/uL (150-450); RED BLOOD COUNT 3.57 10^6/uL (4.30-6.10); WHITE BLOOD COUNT 6.6 10^3/uL (4.0-10.0)
[2020-11-30 08:38] LABS: HEMOGLOBIN A1c 6.6 %
[2020-11-30 09:00] LABS: ALBUMIN 3.8 GM/DL (3.2-5.2); BILIRUBIN,TOTAL 0.5 MG/DL (0.2-1.0); CALCIUM LEVEL 8.7 MG/DL (8.8-10.2); CHOLESTEROL RISK RATIO 2.914 (<5); CREATININE FOR GFR 1.25 MG/DL (0.70-1.30); GLOMERULAR FILTRATION RATE 59.3 (>42); POTASSIUM SERUM 4.2 MEQ/L (3.5-5.1)
[2020-11-30 09:05] LABS: MAU/CREAT RATIO 64.2 MCG/MG (0.0-30.0)
== END ==
LOC: M LAB 07:13
PROVIDERS: ATTEND Nurse Practitioner Family
DX: E11.69 Type 2 diabetes mellitus with other specified complication (principal)

== ENCOUNTER → 2020-12-14 | Outpatient (CLI) | payer MEDICARE ==
[2020-12-14 07:43] LABS: INR 2.5; PROTHROMBIN TIME 27.6 SECONDS (12.5-14.3)
== END ==
LOC: M LAB 07:02
PROVIDERS: ATTEND Physician Assistant
DX: I48.0 Paroxysmal atrial fibrillation (principal); Z79.01 Long term (current) use of anticoagulants

== ENCOUNTER → 2020-12-21 | Outpatient (CLI) | payer MEDICARE ==
[2020-12-21 12:00] LABS: CALCIUM LEVEL 8.5 MG/DL (8.8-10.2); CREATININE FOR GFR 1.52 MG/DL (0.70-1.30); GLOMERULAR FILTRATION RATE 47.3 (>42); POTASSIUM SERUM 4.1 MEQ/L (3.5-5.1)
== END ==
LOC: M LAB 10:52
PROVIDERS: ATTEND Physician Assistant
DX: I50.32 Chronic diastolic (congestive) heart failure (principal)

== ENCOUNTER → 2021-01-13 | Outpatient (CLI) | payer MEDICARE ==
[2021-01-13 08:35] LABS: INR 1.9; PROTHROMBIN TIME 22.2 SECONDS (12.5-14.3)
== END ==
LOC: M LAB 07:31
PROVIDERS: ATTEND Physician Assistant
DX: I48.0 Paroxysmal atrial fibrillation (principal); Z79.01 Long term (current) use of anticoagulants

== ENCOUNTER → 2021-02-10 | Outpatient (CLI) | payer MEDICARE ==
[2021-02-10 08:33] LABS: INR 1.92; PROTHROMBIN TIME 22.4 SECONDS (12.5-14.3)
== END ==
LOC: M LAB 07:31
PROVIDERS: ATTEND Physician Assistant
DX: I48.0 Paroxysmal atrial fibrillation (principal); Z79.01 Long term (current) use of anticoagulants

== ENCOUNTER → 2021-03-11 | Outpatient (CLI) | payer MEDICARE ==
[2021-03-11 07:32] LABS: INR 2.29; PROTHROMBIN TIME 25.7 SECONDS (12.5-14.3)
== END ==
LOC: M LAB 06:35
PROVIDERS: ATTEND Physician Assistant
DX: I48.0 Paroxysmal atrial fibrillation (principal); Z79.01 Long term (current) use of anticoagulants

== ENCOUNTER → 2021-04-01 | Outpatient (CLI) | payer MEDICARE ==
[~2021-04-01] MED LIST changes: +ERGO500029 PO; -VITA50005 PO
[2021-04-01 09:47] LABS: HEMATOCRIT 33.7 % (42.0-52.0); HEMOGLOBIN 10.9 g/dl (13.5-17.5); MEAN CORPUSCULAR HEMOGLOBIN 31.6 pg (27.0-33.0); MEAN CORPUSCULAR HGB CONC 32.3 g/dl (32.0-36.5); MEAN CORPUSCULAR VOLUME 97.7 fl (80.0-96.0); PLATELET COUNT, AUTOMATED 217 10^3/uL (150-450); RED BLOOD COUNT 3.45 10^6/uL (4.30-6.10); WHITE BLOOD COUNT 6.8 10^3/uL (4.0-10.0)
[2021-04-01 10:02] LABS: INR 1.96; PROTHROMBIN TIME 22.8 SECONDS (12.5-14.3)
[2021-04-01 11:02] LABS: ALBUMIN 3.5 GM/DL (3.2-5.2); ALT/SGPT 26 U/L (12-78); BILIRUBIN,TOTAL 0.6 MG/DL (0.2-1.0); BLOOD UREA NITROGEN 26 MG/DL (7-18); CALCIUM LEVEL 8.8 MG/DL (8.8-10.2); CARBON DIOXIDE LEVEL 31 MEQ/L (21-32); CHLORIDE LEVEL 105 MEQ/L (98-107); CREATININE FOR GFR 1.15 MG/DL (0.70-1.30); GLOMERULAR FILTRATION RATE > 60.0 (>42); GLUCOSE, FASTING 157 MG/DL (70-100); MAGNESIUM LEVEL 2.2 MG/DL (1.8-2.4); POTASSIUM SERUM 4.4 MEQ/L (3.5-5.1); SODIUM LEVEL 140 MEQ/L (136-145); TOTAL PROTEIN 6.7 GM/DL (6.4-8.2)
--- NOTE | 2021-04-01 11:13 | REP ---
INDICATION: PAROXYSMAL ATRIAL FIBRILLATION. COMPARISON: 09/21/2020 the latest prior FINDINGS: The superior mediastinal structures are midline. The cardiac silhouette is unremarkable in size, shape, and position. The diaphragmatic surfaces of the lungs are regular, and the costophrenic angles are clear. The pulmonary miller are clear. The imaged osseous structures are intact. The dual chamber bipolar pacemaker devices unchanged. IMPRESSION: No acute disease or significant change. <Electronically signed by Sreekanth Choi > 04/01/21 [id number]
== END ==
LOC: M LAB 09:02
PROVIDERS: ATTEND Physician Assistant
DX: I48.0 Paroxysmal atrial fibrillation (principal); Z79.01 Long term (current) use of anticoagulants

== ENCOUNTER → 2021-04-26 | Outpatient (CLI) | payer MEDICARE ==
[2021-04-26 08:19] LABS: INR 2.05; PROTHROMBIN TIME 23.6 SECONDS (12.5-14.3)
== END ==
LOC: M LAB 07:42
PROVIDERS: ATTEND Physician Assistant
DX: I48.0 Paroxysmal atrial fibrillation (principal); Z79.01 Long term (current) use of anticoagulants

== ENCOUNTER → 2021-05-24 | Outpatient (CLI) | payer MEDICARE ==
[2021-05-24 08:16] LABS: INR 1.63; PROTHROMBIN TIME 19.7 SECONDS (12.7-14.5)
== END ==
LOC: M LAB 07:27
PROVIDERS: ATTEND Physician Assistant
DX: I48.0 Paroxysmal atrial fibrillation (principal)

== ENCOUNTER → 2021-06-07 | Outpatient (CLI) | payer MEDICARE ==
[2021-06-07 08:37] LABS: INR 2.31; PROTHROMBIN TIME 25.7 SECONDS (12.7-14.5)
== END ==
LOC: M LAB 07:50
PROVIDERS: ATTEND Physician Assistant
DX: I48.0 Paroxysmal atrial fibrillation (principal); Z79.01 Long term (current) use of anticoagulants

== ENCOUNTER → 2021-07-05 | Outpatient (CLI) | payer MEDICARE ==
[2021-07-05 08:12] LABS: CALCIUM LEVEL 8.8 MG/DL (8.8-10.2); CREATININE FOR GFR 1.37 MG/DL (0.70-1.30); GLOMERULAR FILTRATION RATE 53.4 (>42); MAGNESIUM LEVEL 2.4 MG/DL (1.8-2.4); POTASSIUM SERUM 4.4 MEQ/L (3.5-5.1)
== END ==
LOC: M LAB 07:19
PROVIDERS: ATTEND Physician Assistant
DX: I50.32 Chronic diastolic (congestive) heart failure (principal); I48.0 Paroxysmal atrial fibrillation; Z79.01 Long term (current) use of anticoagulants

== ENCOUNTER → 2021-07-07 | Outpatient (CLI) | payer MEDICARE ==
[2021-07-07 10:38] LABS: INR 1.96; PROTHROMBIN TIME 22.7 SECONDS (12.7-14.5)
== END ==
LOC: M LAB 08:55
PROVIDERS: ATTEND Physician Assistant
DX: I48.0 Paroxysmal atrial fibrillation (principal); Z79.01 Long term (current) use of anticoagulants

== ENCOUNTER → 2021-07-20 | Outpatient (CLI) | payer MEDICARE ==
--- NOTE | 2021-07-20 09:09 | REP ---
INDICATION: SOB COMPARISON: 04/01/2021 TECHNIQUE: PA and lateral. FINDINGS: The mediastinum and cardiac silhouette are stable with pacemaker again noted. The lung miller demonstrate chronic changes and superimposed right lower lobe airspace disease is suspected. No effusion. No pneumothorax. The skeletal structures are intact and normal. IMPRESSION: Superimposed right lower lobe airspace disease. Follow-up to resolution. <Electronically signed by Suhail Dean > 07/20/21 [id number]
== END ==
LOC: M PLAIMG 08:52
PROVIDERS: ATTEND Nurse Practitioner Family
DX: R06.02 Shortness of breath (principal)

== ENCOUNTER → 2021-07-28 | Outpatient (CLI) | payer MEDICARE ==
[2021-07-28 09:50] LABS: INR 2.87; PROTHROMBIN TIME 30.4 SECONDS (12.7-14.5)
== END ==
LOC: M LAB 08:04
PROVIDERS: ATTEND Physician Assistant
DX: I48.0 Paroxysmal atrial fibrillation (principal); Z79.01 Long term (current) use of anticoagulants

== ENCOUNTER → 2021-09-01 | Outpatient (CLI) | payer MEDICARE ==
[2021-09-01 11:28] LABS: INR 2.8; PROTHROMBIN TIME 29.8 SECONDS (12.7-14.5)
== END ==
LOC: M LAB 07:42
PROVIDERS: ATTEND Physician Assistant
DX: I48.0 Paroxysmal atrial fibrillation (principal); Z79.01 Long term (current) use of anticoagulants

== ENCOUNTER → 2021-09-13 | Outpatient (CLI) | payer MEDICARE ==
[2021-09-13 09:50] LABS: CALCIUM LEVEL 8.7 MG/DL (8.8-10.2); CREATININE FOR GFR 1.3 MG/DL (0.70-1.30); GLOMERULAR FILTRATION RATE 56.5 (>35); MAGNESIUM LEVEL 2.3 MG/DL (1.8-2.4)
== END ==
LOC: M LAB 07:40
PROVIDERS: ATTEND Physician Assistant
DX: I50.32 Chronic diastolic (congestive) heart failure (principal); I48.0 Paroxysmal atrial fibrillation; Z79.01 Long term (current) use of anticoagulants

== ENCOUNTER → 2021-09-29 | Outpatient (CLI) | payer MEDICARE ==
[2021-09-29 09:03] LABS: INR 3.66; PROTHROMBIN TIME 36.6 SECONDS (12.7-14.5)
== END ==
LOC: M LAB 07:31
PROVIDERS: ATTEND Physician Assistant
DX: I48.0 Paroxysmal atrial fibrillation (principal)

== ENCOUNTER → 2021-10-04 | Outpatient (CLI) | payer MEDICARE ==
[~2021-10-04] MED LIST changes: -AMIO200T3 PO; +AMIO200T49 PO; +LOSA100T45 PO; -LOSA100T50 PO; +POTA-151 PO; -POTA20TA6 PO
[2021-10-04 08:26] LABS: HEMATOCRIT 33.5 % (42.0-52.0); HEMOGLOBIN 10.7 g/dl (13.5-17.5); MEAN CORPUSCULAR HEMOGLOBIN 31.7 pg (27.0-33.0); MEAN CORPUSCULAR HGB CONC 31.9 g/dl (32.0-36.5); MEAN CORPUSCULAR VOLUME 99.1 fl (80.0-96.0); PLATELET COUNT, AUTOMATED 217 10^3/uL (150-450); RED BLOOD COUNT 3.38 10^6/uL (4.30-6.10); WHITE BLOOD COUNT 7.1 10^3/uL (4.0-10.0)
[2021-10-04 09:26] LABS: ALBUMIN 3.6 GM/DL (3.2-5.2); BILIRUBIN,TOTAL 0.4 MG/DL (0.2-1.0); CALCIUM LEVEL 8.9 MG/DL (8.8-10.2); CHOLESTEROL RISK RATIO 3.106 (<5); CREATININE FOR GFR 1.57 MG/DL (0.70-1.30); GLOMERULAR FILTRATION RATE 45.5 (>35); MAGNESIUM LEVEL 2.1 MG/DL (1.8-2.4); POTASSIUM SERUM 4.1 MEQ/L (3.5-5.1); THYROID STIMULATING HORMONE 2.63 uIU/ML (0.358-3.740)
== END ==
LOC: M LAB 07:26
PROVIDERS: ATTEND Physician Assistant
DX: I50.32 Chronic diastolic (congestive) heart failure (principal); I25.10 Atherosclerotic heart disease of native coronary artery without angina pectoris; I48.0 Paroxysmal atrial fibrillation; E78.00 Pure hypercholesterolemia, unspecified

== ENCOUNTER → 2021-10-06 | Outpatient (CLI) | payer MEDICARE ==
[~2021-10-06] MED LIST changes: +AMIO200T3 PO; -AMIO200T49 PO; -LOSA100T45 PO; +LOSA100T50 PO; -POTA-151 PO; +POTA20TA6 PO
[2021-10-06 07:57] LABS: INR 2.57
== END ==
LOC: M LAB 07:19
PROVIDERS: ATTEND Physician Assistant
DX: I48.0 Paroxysmal atrial fibrillation (principal); Z79.01 Long term (current) use of anticoagulants

== ENCOUNTER → 2021-10-20 | Outpatient (CLI) | payer MEDICARE ==
[~2021-10-20] MED LIST changes: -AMIO200T3 PO; +AMIO200T49 PO; +LOSA100T45 PO; -LOSA100T50 PO; +POTA-151 PO; -POTA20TA6 PO
[2021-10-20 08:33] LABS: INR 3.42; PROTHROMBIN TIME 34.7 SECONDS (12.7-14.5)
== END ==
LOC: M LAB 07:09
PROVIDERS: ATTEND Physician Assistant
DX: I48.0 Paroxysmal atrial fibrillation (principal); Z79.01 Long term (current) use of anticoagulants

== ENCOUNTER → 2021-11-01 | Outpatient (CLI) | payer MEDICARE ==
[2021-11-01 09:58] LABS: INR 3.16; PROTHROMBIN TIME 32.7 SECONDS (12.7-14.5)
== END ==
LOC: M LAB 07:46
PROVIDERS: ATTEND Physician Assistant
DX: I48.0 Paroxysmal atrial fibrillation (principal); Z79.01 Long term (current) use of anticoagulants

== ENCOUNTER → 2021-11-15 | Outpatient (CLI) | payer MEDICARE ==
[2021-11-15 08:38] LABS: INR 3.23; PROTHROMBIN TIME 33.3 SECONDS (12.7-14.5)
== END ==
LOC: M LAB 07:26
PROVIDERS: ATTEND Physician Assistant
DX: I48.0 Paroxysmal atrial fibrillation (principal)

== ENCOUNTER → 2021-11-23 | Outpatient (CLI) | payer MEDICARE ==
[2021-11-23 07:41] LABS: ALBUMIN 3.8 GM/DL (3.2-5.2); BILIRUBIN,TOTAL 0.5 MG/DL (0.2-1.0); CALCIUM LEVEL 9.1 MG/DL (8.8-10.2); CHOLESTEROL RISK RATIO 2.839 (<5); CREATININE FOR GFR 1.73 MG/DL (0.70-1.30); GLOMERULAR FILTRATION RATE 40.7 (>35); POTASSIUM SERUM 4.1 MEQ/L (3.5-5.1); TOTAL PROTEIN 7.2 GM/DL (6.4-8.2)
[2021-11-23 07:44] LABS: MAU/CREAT RATIO 131.9 MCG/MG (0.0-30.0)
[2021-11-23 07:55] LABS: HEMOGLOBIN A1c 6.9 %
== END ==
LOC: M LAB 06:38
PROVIDERS: ATTEND Nurse Practitioner Family
DX: E11.69 Type 2 diabetes mellitus with other specified complication (principal)

== ENCOUNTER → 2021-12-07 | Outpatient (CLI) | payer MEDICARE ==
[2021-12-07 08:03] LABS: INR 2.19; PROTHROMBIN TIME 24.7 SECONDS (12.7-14.5)
== END ==
LOC: M LAB 06:37
PROVIDERS: ATTEND Physician Assistant
DX: I48.0 Paroxysmal atrial fibrillation (principal)

== ENCOUNTER → 2021-12-07 | Outpatient (CLI) | payer MEDICARE ==
[2021-12-07 07:23] LABS: HEMATOCRIT 34.1 % (42.0-52.0); HEMOGLOBIN 11.1 g/dl (13.5-17.5); MEAN CORPUSCULAR HEMOGLOBIN 31.8 pg (27.0-33.0); MEAN CORPUSCULAR HGB CONC 32.6 g/dl (32.0-36.5); MEAN CORPUSCULAR VOLUME 97.7 fl (80.0-96.0); PLATELET COUNT, AUTOMATED 222 10^3/uL (150-450); RED BLOOD COUNT 3.49 10^6/uL (4.30-6.10); WHITE BLOOD COUNT 8.4 10^3/uL (4.0-10.0)
[2021-12-07 07:48] LABS: CALCIUM LEVEL 8.7 MG/DL (8.8-10.2); CREATININE FOR GFR 1.55 MG/DL (0.70-1.30); GLOMERULAR FILTRATION RATE 46.2 (>35); MAGNESIUM LEVEL 2.2 MG/DL (1.8-2.4); POTASSIUM SERUM 4.5 MEQ/L (3.5-5.1)
== END ==
LOC: M LAB 06:40
PROVIDERS: ATTEND Physician Assistant
DX: I50.32 Chronic diastolic (congestive) heart failure (principal); I48.19 Other persistent atrial fibrillation

== ENCOUNTER → 2022-01-04 | Outpatient (CLI) | payer MEDICARE ==
[2022-01-04 07:59] LABS: INR 2.38; PROTHROMBIN TIME 26.4 SECONDS (12.7-14.5)
== END ==
LOC: M LAB 07:11
PROVIDERS: ATTEND Physician Assistant
DX: I48.0 Paroxysmal atrial fibrillation (principal); Z79.01 Long term (current) use of anticoagulants

== ENCOUNTER → 2022-02-15 | Outpatient (CLI) | payer MEDICARE ==
[2022-02-15 07:01] LABS: INR 2.1
[2022-02-15 07:12] LABS: CALCIUM LEVEL 9.2 MG/DL (8.8-10.2); CREATININE FOR GFR 1.74 MG/DL (0.70-1.30); GLOMERULAR FILTRATION RATE 40.4 (>35); MAGNESIUM LEVEL 2.2 MG/DL (1.8-2.4); POTASSIUM SERUM 4.3 MEQ/L (3.5-5.1)
== END ==
LOC: M LAB 06:16
PROVIDERS: ATTEND Physician Assistant
DX: I50.32 Chronic diastolic (congestive) heart failure (principal); I48.19 Other persistent atrial fibrillation; Z79.01 Long term (current) use of anticoagulants

== ENCOUNTER → 2022-03-15 | Outpatient (CLI) | payer MEDICARE ==
[2022-03-15 07:00] LABS: INR 2.13; PROTHROMBIN TIME 24.2 SECONDS (12.7-14.5)
== END ==
LOC: M LAB 06:08
PROVIDERS: ATTEND Physician Assistant
DX: I48.0 Paroxysmal atrial fibrillation (principal); Z79.01 Long term (current) use of anticoagulants

== ENCOUNTER → 2022-04-13 | Outpatient (CLI) | payer MEDICARE ==
[2022-04-13 06:44] LABS: INR 1.97; PROTHROMBIN TIME 22.8 SECONDS (12.7-14.5)
== END ==
LOC: M LAB 06:08
PROVIDERS: ATTEND Physician Assistant
DX: I48.0 Paroxysmal atrial fibrillation (principal); Z79.01 Long term (current) use of anticoagulants

== ENCOUNTER → 2022-04-22 | Outpatient (CLI) | payer MEDICARE ==
[2022-04-22 07:42] LABS: CREATININE FOR GFR 1.44 MG/DL (0.70-1.30); GLOMERULAR FILTRATION RATE 50.2 (>35)
== END ==
LOC: M LAB 06:34
PROVIDERS: ATTEND Internal Medicine
DX: I35.0 Nonrheumatic aortic (valve) stenosis (principal)

== ENCOUNTER → 2022-05-09 | Outpatient (CLI) | payer MEDICARE ==
[2022-05-09 08:23] LABS: CALCIUM LEVEL 9.1 MG/DL (8.8-10.2); CREATININE FOR GFR 1.56 MG/DL (0.70-1.30); GLOMERULAR FILTRATION RATE 45.8 (>35); POTASSIUM SERUM 4.3 MEQ/L (3.5-5.1)
== END ==
LOC: M LAB 07:17
PROVIDERS: ATTEND Nurse Practitioner Family
DX: E11.69 Type 2 diabetes mellitus with other specified complication (principal)

== ENCOUNTER → 2022-05-30 | Outpatient (CLI) | payer MEDICARE ==
[2022-05-30 09:28] LABS: INR 1.97; PROTHROMBIN TIME 22.8 SECONDS (12.7-14.5)
== END ==
LOC: M LAB 08:20
PROVIDERS: ATTEND Physician Assistant
DX: I48.0 Paroxysmal atrial fibrillation (principal); Z79.01 Long term (current) use of anticoagulants

== ENCOUNTER → 2022-06-07 | Outpatient (CLI) | payer MEDICARE ==
[2022-06-07 10:43] LABS: BASO # 0.1 10^3/uL (0.0-0.2); BASO % 0.7 % (0.0-1.0); EOS # 0.1 10^3/uL (0.0-0.5); EOS % 1.9 % (0.0-3.0); HEMATOCRIT 30.3 % (42.0-52.0); HEMOGLOBIN 9.6 g/dl (13.5-17.5); LYMPH # 0.8 10^3/uL (1.5-5.0); LYMPH % 11.5 % (24.0-44.0); MEAN CORPUSCULAR HEMOGLOBIN 32.5 pg (27.0-33.0); MEAN CORPUSCULAR HGB CONC 31.7 g/dl (32.0-36.5); MEAN CORPUSCULAR VOLUME 102.7 fl (80.0-96.0); MONO # 0.6 10^3/uL (0.0-0.8); MONO % 7.8 % (2.0-8.0); NEUTROPHILS # 5.6 10^3/uL (1.5-8.5); PLATELET COUNT, AUTOMATED 222 10^3/uL (150-450); RED BLOOD COUNT 2.95 10^6/uL (4.30-6.10); WHITE BLOOD COUNT 7.2 10^3/uL (4.0-10.0)
[2022-06-07 11:17] LABS: CALCIUM LEVEL 8.9 MG/DL (8.8-10.2); CREATININE FOR GFR 1.59 MG/DL (0.70-1.30); GLOMERULAR FILTRATION RATE 44.8 (>35); MAGNESIUM LEVEL 2.5 MG/DL (1.8-2.4); POTASSIUM SERUM 4.4 MEQ/L (3.5-5.1)
== END ==
LOC: M LAB 09:40
PROVIDERS: ATTEND Physician Assistant
DX: I50.32 Chronic diastolic (congestive) heart failure (principal); I48.0 Paroxysmal atrial fibrillation

== ENCOUNTER → 2022-06-09 | Outpatient (CLI) | payer MEDICARE | LOC: M LAB 09:26 | PROVIDERS: ATTEND Family Medicine | DX: D50.9 Iron deficiency anemia, unspecified (principal); Z53.9 Procedure and treatment not carried out, unspecified reason ==

== ENCOUNTER → 2022-06-09 | Outpatient (CLI) | payer MEDICARE ==
[2022-06-09 11:17] LABS: INR 1.93; PROTHROMBIN TIME 22.4 SECONDS (12.7-14.5)
== END ==
LOC: M LAB 09:15
PROVIDERS: ATTEND Physician Assistant
DX: I48.0 Paroxysmal atrial fibrillation (principal); Z79.01 Long term (current) use of anticoagulants

== ENCOUNTER → 2022-06-11 | Outpatient (REF) | payer MEDICARE | LOC: M LAB REF 09:29 | PROVIDERS: ATTEND Family Medicine | DX: D50.9 Iron deficiency anemia, unspecified (principal) ==

== ENCOUNTER → 2022-06-15 | Outpatient (CLI) | payer MEDICARE ==
[2022-06-15 08:11] LABS: INR 2.04; PROTHROMBIN TIME 23.4 SECONDS (12.7-14.5)
== END ==
LOC: M LAB 07:03
PROVIDERS: ATTEND Nurse Practitioner Family
DX: Z79.01 Long term (current) use of anticoagulants (principal)

== ENCOUNTER → 2022-06-20 | Outpatient (CLI) | payer MEDICARE ==
[2022-06-20 10:11] LABS: CALCIUM LEVEL 9.9 MG/DL (8.8-10.2); CREATININE FOR GFR 1.61 MG/DL (0.70-1.30); GLOMERULAR FILTRATION RATE 44.2 (>35); MAGNESIUM LEVEL 2.3 MG/DL (1.8-2.4); POTASSIUM SERUM 4.2 MEQ/L (3.5-5.1)
== END ==
LOC: M LAB 07:03
PROVIDERS: ATTEND Physician Assistant
DX: I50.32 Chronic diastolic (congestive) heart failure (principal); I48.0 Paroxysmal atrial fibrillation; Z79.01 Long term (current) use of anticoagulants

== ENCOUNTER → 2022-06-21 | Outpatient (CLI) | payer MEDICARE | LOC: M CARPUL 08:30 | PROVIDERS: ATTEND Physician Assistant | DX: I35.0 Nonrheumatic aortic (valve) stenosis (principal); Z95.4 Presence of other heart-valve replacement ==

== ENCOUNTER → 2022-06-27 | Outpatient (CLI) | payer MEDICARE ==
[2022-06-27 07:12] LABS: BASO # 0.1 10^3/uL (0.0-0.2); BASO % 0.9 % (0.0-1.0); EOS # 0.3 10^3/uL (0.0-0.5); EOS % 3.6 % (0.0-3.0); HEMATOCRIT 31.9 % (42.0-52.0); HEMOGLOBIN 10.2 g/dl (13.5-17.5); LYMPH # 1.2 10^3/uL (1.5-5.0); LYMPH % 14.6 % (24.0-44.0); MEAN CORPUSCULAR HEMOGLOBIN 32.3 pg (27.0-33.0); MEAN CORPUSCULAR VOLUME 100.9 fl (80.0-96.0); MONO # 0.5 10^3/uL (0.0-0.8); MONO % 6.7 % (2.0-8.0); NEUTROPHILS # 5.9 10^3/uL (1.5-8.5); NEUTROPHILS % 73.6 % (36.0-66.0); PLATELET COUNT, AUTOMATED 197 10^3/uL (150-450); RED BLOOD COUNT 3.16 10^6/uL (4.30-6.10)
[2022-06-27 07:27] LABS: INR 2.35; PROTHROMBIN TIME 26.1 SECONDS (12.7-14.5)
[2022-06-27 08:01] LABS: CALCIUM LEVEL 8.3 MG/DL (8.8-10.2); CREATININE FOR GFR 1.85 MG/DL (0.70-1.30); GLOMERULAR FILTRATION RATE 37.6 (>35); MAGNESIUM LEVEL 2.3 MG/DL (1.8-2.4); POTASSIUM SERUM 3.9 MEQ/L (3.5-5.1)
== END ==
LOC: M LAB 06:46
PROVIDERS: ATTEND Physician Assistant
DX: I50.32 Chronic diastolic (congestive) heart failure (principal)

== ENCOUNTER → 2022-08-05 | Outpatient (CLI) | payer MEDICARE ==
[2022-08-05 09:11] LABS: INR 1.93; PROTHROMBIN TIME 22.4 SECONDS (12.5-14.5)
== END ==
LOC: M LAB 07:04
PROVIDERS: ATTEND Physician Assistant
DX: I48.0 Paroxysmal atrial fibrillation (principal)

== ENCOUNTER → 2022-08-10 | Outpatient (CLI) | payer MEDICARE ==
[2022-08-10 07:55] LABS: HEMATOCRIT 32.5 % (42.0-52.0); HEMOGLOBIN 10.4 g/dl (13.5-17.5); MEAN CORPUSCULAR HEMOGLOBIN 32.4 pg (27.0-33.0); MEAN CORPUSCULAR VOLUME 101.2 fl (80.0-96.0); PLATELET COUNT, AUTOMATED 220 10^3/uL (150-450); RED BLOOD COUNT 3.21 10^6/uL (4.30-6.10); WHITE BLOOD COUNT 11.4 10^3/uL (4.0-10.0)
[2022-08-10 08:21] LABS: CALCIUM LEVEL 8.9 MG/DL (8.8-10.2); CREATININE FOR GFR 1.71 MG/DL (0.70-1.30); GLOMERULAR FILTRATION RATE 41.1 (>35); POTASSIUM SERUM 4.3 MEQ/L (3.5-5.1)
== END ==
LOC: M LAB 07:10
PROVIDERS: ATTEND Physician Assistant
DX: I50.32 Chronic diastolic (congestive) heart failure (principal)

== ENCOUNTER → 2022-08-22 | Outpatient (CLI) | payer MEDICARE ==
[2022-08-22 09:38] LABS: INR 2.29; PROTHROMBIN TIME 25.6 SECONDS (12.5-14.5)
== END ==
LOC: M LAB 08:27
PROVIDERS: ATTEND Physician Assistant
DX: I48.0 Paroxysmal atrial fibrillation (principal); Z79.01 Long term (current) use of anticoagulants

== ENCOUNTER → 2022-09-20 | Outpatient (CLI) | payer MEDICARE ==
[2022-09-20 10:01] LABS: INR 2.35; PROTHROMBIN TIME 26.1 SECONDS (12.5-14.5)
== END ==
LOC: M LAB 08:57
PROVIDERS: ATTEND Physician Assistant
DX: I48.0 Paroxysmal atrial fibrillation (principal); Z79.01 Long term (current) use of anticoagulants

== ENCOUNTER → 2022-09-27 | Outpatient (REF) | payer MEDICARE ==
[2022-09-28 19:14] LABS: PERCENT SATURATION 15.7 % (19.7-50.0)
== END ==
LOC: M LAB REF 17:02
PROVIDERS: ATTEND Internal Medicine Nephrology
DX: D50.9 Iron deficiency anemia, unspecified (principal)

== ENCOUNTER → 2022-10-10 | Outpatient (CLI) | payer MEDICARE ==
[2022-10-10 09:23] LABS: CALCIUM LEVEL 9.1 MG/DL (8.3-10.6); CREATININE FOR GFR 1.74 MG/DL (0.70-1.30); GLOMERULAR FILTRATION RATE 40.3 (>35); POTASSIUM SERUM 4.1 MMOL/L (3.5-5.1)
== END ==
LOC: M LAB 08:03
PROVIDERS: ATTEND Physician Assistant
DX: I50.32 Chronic diastolic (congestive) heart failure (principal)

== ENCOUNTER → 2022-10-14 | Outpatient (CLI) | payer MEDICARE | LOC: M RAD 09:06 | PROVIDERS: ATTEND Internal Medicine Nephrology | DX: N18.31 Chronic kidney disease, stage 3a (principal); N13.30 Unspecified hydronephrosis ==

== ENCOUNTER → 2022-10-19 | Outpatient (CLI) | payer MEDICARE ==
[2022-10-19 08:21] LABS: INR 2.52; PROTHROMBIN TIME 27.6 SECONDS (12.5-14.5)
[2022-10-19 08:37] LABS: ALBUMIN 3.6 G/DL (3.2-5.2); BILIRUBIN,DIRECT 0.1 MG/DL (<0.4); BILIRUBIN,TOTAL 0.5 MG/DL (0.3-1.2); CHOLESTEROL RISK RATIO 4.55 (<5); LDL CHOLESTEROL 65.2 MG/DL (<100); TOTAL PROTEIN 6.9 G/DL (5.7-8.2)
== END ==
LOC: M LAB 07:21
PROVIDERS: ATTEND Physician Assistant
DX: E78.00 Pure hypercholesterolemia, unspecified (principal); I48.0 Paroxysmal atrial fibrillation; Z79.01 Long term (current) use of anticoagulants

== ENCOUNTER → 2022-11-16 | Outpatient (CLI) | payer MEDICARE ==
[2022-11-16 10:27] LABS: INR 3.28; PROTHROMBIN TIME 33.9 SECONDS (12.5-14.5)
== END ==
LOC: M LAB 08:19
PROVIDERS: ATTEND Physician Assistant
DX: I48.0 Paroxysmal atrial fibrillation (principal)

== ENCOUNTER → 2022-11-30 | Outpatient (CLI) | payer MEDICARE ==
[2022-11-30 08:38] LABS: INR 2.95; PROTHROMBIN TIME 31.2 SECONDS (12.5-14.5)
== END ==
LOC: M LAB 07:56
PROVIDERS: ATTEND Physician Assistant
DX: I48.0 Paroxysmal atrial fibrillation (principal); Z79.01 Long term (current) use of anticoagulants

== ENCOUNTER → 2022-12-16 | Outpatient (REF) | payer MEDICARE ==
[2022-12-16 17:30] LABS: POTASSIUM SERUM 5.4 MMOL/L (3.5-5.1)
== END ==
LOC: M LAB REF 16:43
PROVIDERS: ATTEND Internal Medicine Nephrology
DX: N18.31 Chronic kidney disease, stage 3a (principal)

== ENCOUNTER → 2022-12-26 | Outpatient (CLI) | payer MEDICARE ==
[2022-12-26 10:23] LABS: BASO % 0.4 % (0.0-1.0); EOS # 0.2 10^3/uL (0.0-0.5); EOS % 1.6 % (0.0-3.0); HEMATOCRIT 31.7 % (42.0-52.0); HEMOGLOBIN 9.9 g/dl (13.5-17.5); LYMPH # 0.8 10^3/uL (1.5-5.0); LYMPH % 7.9 % (24.0-44.0); MEAN CORPUSCULAR HEMOGLOBIN 31.6 pg (27.0-33.0); MEAN CORPUSCULAR HGB CONC 31.2 g/dl (32.0-36.5); MEAN CORPUSCULAR VOLUME 101.3 fl (80.0-96.0); MONO # 0.6 10^3/uL (0.0-0.8); MONO % 6.1 % (2.0-8.0); NEUTROPHILS # 7.9 10^3/uL (1.5-8.5); NEUTROPHILS % 82.9 % (36.0-66.0); PLATELET COUNT, AUTOMATED 224 10^3/uL (150-450); RED BLOOD COUNT 3.13 10^6/uL (4.30-6.10); WHITE BLOOD COUNT 9.5 10^3/uL (4.0-10.0)
[2022-12-26 10:43] LABS: HEMOGLOBIN A1c 7.2 % (4.0-6.0)
[2022-12-26 10:44] LABS: CALCIUM LEVEL 8.4 MG/DL (8.3-10.6); CREATININE FOR GFR 2.02 MG/DL (0.70-1.30); GLOMERULAR FILTRATION RATE 33.9 (>35)
== END ==
LOC: M LAB 09:25
PROVIDERS: ATTEND Nurse Practitioner Family
DX: E11.69 Type 2 diabetes mellitus with other specified complication (principal); I48.11 Longstanding persistent atrial fibrillation; Z79.01 Long term (current) use of anticoagulants

== ENCOUNTER → 2022-12-26 | Outpatient (CLI) | payer MEDICARE ==
[2022-12-26 10:46] LABS: INR 2.64; PROTHROMBIN TIME 28.6 SECONDS (12.5-14.5)
== END ==
LOC: M LAB 09:27
PROVIDERS: ATTEND Physician Assistant
DX: I48.0 Paroxysmal atrial fibrillation (principal); Z79.01 Long term (current) use of anticoagulants

== ENCOUNTER → 2023-01-23 | Outpatient (CLI) | payer MEDICARE ==
[~2023-01-23] MED LIST changes: +BENZ2TAB48 PO; -BENZ2TAB5 PO
[2023-01-23 08:47] LABS: INR 2.42; PROTHROMBIN TIME 26.7 SECONDS (12.5-14.5)
== END ==
LOC: M LAB 07:29
PROVIDERS: ATTEND Physician Assistant
DX: I48.0 Paroxysmal atrial fibrillation (principal); Z79.01 Long term (current) use of anticoagulants

== ENCOUNTER → 2023-02-07 | Outpatient (CLI) | payer MEDICARE ==
[~2023-02-07] MED LIST changes: +ALBU8.5H INH; +ALLO100T PO; +BENZ0.5T2 PO; -BENZ0.5T23 PO; +BIMA01SOL OU; +ECOT81TA5 PO; -LOSA100T45 PO; +LOSA100T46 PO; +PRAM0.5T4 PO; +PRIM50TA6 PO; +SPIR-10 PO; +TORS20TA2 PO; +TRUL10IN SQ
== END ==
LOC: M SOG 08:01
PROVIDERS: ATTEND Orthopaedic Surgery Hand Surgery
DX: M25.531 Pain in right wrist (principal); M25.532 Pain in left wrist; M19.031 Primary osteoarthritis, right wrist; M19.032 Primary osteoarthritis, left wrist; M85.831 Other specified disorders of bone density and structure, right forearm; M85.832 Other specified disorders of bone density and structure, left forearm

== ENCOUNTER 2023-02-15 05:58 | Day surgery (SDC) | payer MEDICARE ==
[~2023-02-15] VITALS: Ht 175.3 cm; Wt 115.4 kg
[2023-02-15] MEDS ORDERED: LIDOCAINE W/EPINEPHRINE 1% 20ML VIAL XX ONE (06:00)
[2023-02-15] MEDS ORDERED: SODIUM BICARBONATE 8.4% INJ 50MEQ 50ML VIAL XX ONE (06:00)
[2023-02-15] MEDS ORDERED: BUPIVACAINE HCL 0.25% 30ML VIAL As Ordered ONE (07:11)
[2023-02-15] MEDS ORDERED: BACITRACIN OINTMENT 30GM TUBE As Ordered ONE (07:11)
[2023-02-15] MEDS ORDERED: LIDOCAINE 1% SDV 30ML VIAL As Ordered ONE (07:11)
[2023-02-15 08:20] VITALS: BP 114/61
== END 2023-02-15 08:20 | disposition home or self-care (01) ==
LOC: M SDC 05:58
PROVIDERS: ATTEND Orthopaedic Surgery Hand Surgery
DX: G56.01 Carpal tunnel syndrome, right upper limb (principal); I48.91 Unspecified atrial fibrillation; I25.10 Atherosclerotic heart disease of native coronary artery without angina pectoris; I25.2 Old myocardial infarction; I10 Essential (primary) hypertension; Z95.0 Presence of cardiac pacemaker; E11.9 Type 2 diabetes mellitus without complications; G47.33 Obstructive sleep apnea (adult) (pediatric); Z79.51 Long term (current) use of inhaled steroids; Z79.82 Long term (current) use of aspirin; Z88.8 Allergy status to other drugs, medicaments and biological substances; Z79.01 Long term (current) use of anticoagulants; Z79.84 Long term (current) use of oral hypoglycemic drugs; N40.0 Benign prostatic hyperplasia without lower urinary tract symptoms

== ENCOUNTER → 2023-02-20 | Outpatient (CLI) | payer MEDICARE ==
[2023-02-20 08:35] LABS: INR 1.71; PROTHROMBIN TIME 20.4 SECONDS (12.5-14.5)
== END ==
LOC: M LAB 07:14
PROVIDERS: ATTEND Physician Assistant
DX: I48.0 Paroxysmal atrial fibrillation (principal); Z79.01 Long term (current) use of anticoagulants

== ENCOUNTER → 2023-03-20 | Outpatient (CLI) | payer MEDICARE ==
[2023-03-20 08:02] LABS: INR 1.45; PROTHROMBIN TIME 17.9 SECONDS (12.5-14.5)
== END ==
LOC: M LAB 07:05
PROVIDERS: ATTEND Physician Assistant
DX: I48.0 Paroxysmal atrial fibrillation (principal); Z79.01 Long term (current) use of anticoagulants

== ENCOUNTER → 2023-04-03 | Outpatient (CLI) | payer MEDICARE ==
[2023-04-03 09:42] LABS: INR 1.89
== END ==
LOC: M LAB 08:30
PROVIDERS: ATTEND Physician Assistant
DX: I48.0 Paroxysmal atrial fibrillation (principal); Z79.01 Long term (current) use of anticoagulants

== ENCOUNTER → 2023-04-17 | Outpatient (CLI) | payer MEDICARE ==
[2023-04-17 08:13] LABS: INR 1.96; PROTHROMBIN TIME 22.7 SECONDS (12.5-14.5)
== END ==
LOC: M LAB 07:05
PROVIDERS: ATTEND Physician Assistant
DX: I48.0 Paroxysmal atrial fibrillation (principal); Z79.01 Long term (current) use of anticoagulants

== ENCOUNTER → 2023-05-15 | Outpatient (CLI) | payer MEDICARE ==
[2023-05-15 07:55] LABS: INR 2.02; PROTHROMBIN TIME 23.2 SECONDS (12.5-14.5)
== END ==
LOC: M LAB 07:11
PROVIDERS: ATTEND Physician Assistant
DX: I48.0 Paroxysmal atrial fibrillation (principal); Z79.01 Long term (current) use of anticoagulants

== ENCOUNTER → 2023-06-13 | Outpatient (CLI) | payer MEDICARE ==
[2023-06-13 08:28] LABS: INR 1.55; PROTHROMBIN TIME 18.1 SECONDS (12.5-14.5)
== END ==
LOC: M LAB 07:03
PROVIDERS: ATTEND Physician Assistant
DX: I48.0 Paroxysmal atrial fibrillation (principal); Z79.01 Long term (current) use of anticoagulants

== ENCOUNTER → 2023-06-26 | Outpatient (CLI) | payer MEDICARE ==
[2023-06-26 07:51] LABS: INR 1.75
== END ==
LOC: M LAB 07:11
PROVIDERS: ATTEND Physician Assistant
DX: I48.0 Paroxysmal atrial fibrillation (principal); Z79.01 Long term (current) use of anticoagulants

== ENCOUNTER → 2023-07-10 | Outpatient (CLI) | payer MEDICARE ==
[2023-07-10 08:06] LABS: INR 1.72; PROTHROMBIN TIME 19.7 SECONDS (12.5-14.5)
== END ==
LOC: M LAB 07:24
PROVIDERS: ATTEND Physician Assistant
DX: I48.0 Paroxysmal atrial fibrillation (principal); Z79.01 Long term (current) use of anticoagulants

== ENCOUNTER → 2023-07-24 | Outpatient (CLI) | payer MEDICARE ==
[2023-07-24 07:22] LABS: INR 1.87
== END ==
LOC: M LAB 06:48
PROVIDERS: ATTEND Physician Assistant
DX: I48.0 Paroxysmal atrial fibrillation (principal); Z79.01 Long term (current) use of anticoagulants

== ENCOUNTER → 2023-08-07 | Outpatient (CLI) | payer MEDICARE ==
[2023-08-07 08:10] LABS: INR 1.97; PROTHROMBIN TIME 21.7 SECONDS (12.5-14.5)
== END ==
LOC: M LAB 07:08
PROVIDERS: ATTEND Physician Assistant
DX: I48.0 Paroxysmal atrial fibrillation (principal); Z79.01 Long term (current) use of anticoagulants

== ENCOUNTER → 2023-09-04 | Outpatient (CLI) | payer MEDICARE ==
[2023-09-04 07:41] LABS: INR 2.19; PROTHROMBIN TIME 23.6 SECONDS (12.5-14.5)
== END ==
LOC: M LAB 07:08
PROVIDERS: ATTEND Physician Assistant
DX: I48.0 Paroxysmal atrial fibrillation (principal)

== ENCOUNTER → 2023-09-20 | Outpatient (CLI) | payer MEDICARE ==
[2023-09-20 07:59] LABS: BASO % 0.4 % (0.0-1.0); EOS # 0.2 10^3/uL (0.0-0.5); EOS % 2.4 % (0.0-3.0); HEMATOCRIT 33.4 % (42.0-52.0); HEMOGLOBIN 10.6 g/dl (13.5-17.5); LYMPH % 14.5 % (24.0-44.0); MEAN CORPUSCULAR HEMOGLOBIN 31.5 pg (27.0-33.0); MEAN CORPUSCULAR HGB CONC 31.7 g/dl (32.0-36.5); MEAN CORPUSCULAR VOLUME 99.1 fl (80.0-96.0); MONO # 0.5 10^3/uL (0.0-0.8); MONO % 6.4 % (2.0-8.0); NEUTROPHILS # 5.4 10^3/uL (1.5-8.5); PLATELET COUNT, AUTOMATED 206 10^3/uL (150-450); RED BLOOD COUNT 3.37 10^6/uL (4.30-6.10); WHITE BLOOD COUNT 7.1 10^3/uL (4.0-10.0)
[2023-09-20 08:27] LABS: ALBUMIN 3.4 G/DL (3.2-5.2); BILIRUBIN,TOTAL 0.3 MG/DL (0.3-1.2); CALCIUM LEVEL 8.7 MG/DL (8.3-10.6); CREATININE FOR GFR 1.75 MG/DL (0.70-1.30); GLOMERULAR FILTRATION RATE 39.9 (>35); POTASSIUM SERUM 4.9 MMOL/L (3.5-5.1); TOTAL PROTEIN 6.3 G/DL (5.7-8.2)
[2023-09-20 08:41] LABS: FOLATE 7.7 NG/ML (>5.4)
[2023-09-20 09:31] LABS: HEMOGLOBIN A1c 6.8 % (4.0-6.0)
== END ==
LOC: M LAB 07:24
PROVIDERS: ATTEND Psychiatry & Neurology Neurology
DX: E11.40 Type 2 diabetes mellitus with diabetic neuropathy, unspecified (principal); E53.8 Deficiency of other specified B group vitamins; R25.1 Tremor, unspecified

== ENCOUNTER → 2023-09-28 | Outpatient (CLI) | payer MEDICARE ==
[2023-09-28 08:29] LABS: INR 2.52; PROTHROMBIN TIME 26.2 SECONDS (12.5-14.5)
== END ==
LOC: M LAB 07:35
PROVIDERS: ATTEND Physician Assistant
DX: I48.0 Paroxysmal atrial fibrillation (principal); Z79.01 Long term (current) use of anticoagulants

== ENCOUNTER → 2023-10-30 | Outpatient (CLI) | payer MEDICARE ==
[2023-10-30 08:28] LABS: INR 3.45; PROTHROMBIN TIME 33.5 SECONDS (12.5-14.5)
[2023-10-30 08:37] LABS: CHOLESTEROL RISK RATIO 3.15 (<5); HDL CHOLESTEROL 44.4 MG/DL (>40); LDL CHOLESTEROL 59.6 MG/DL (<100); NON-HDL-C 95.6 MG/DL
== END ==
LOC: M LAB 07:09
PROVIDERS: ATTEND Physician Assistant
DX: E78.00 Pure hypercholesterolemia, unspecified (principal); I48.0 Paroxysmal atrial fibrillation; Z79.01 Long term (current) use of anticoagulants

== ENCOUNTER → 2023-11-13 | Outpatient (CLI) | payer MEDICARE ==
[2023-11-13 08:01] LABS: INR 2.51; PROTHROMBIN TIME 26.2 SECONDS (12.5-14.5)
== END ==
LOC: M LAB 07:03
PROVIDERS: ATTEND Physician Assistant
DX: I48.21 Permanent atrial fibrillation (principal); Z79.01 Long term (current) use of anticoagulants

== ENCOUNTER → 2023-12-11 | Outpatient (CLI) | payer MEDICARE ==
[2023-12-11 08:15] LABS: INR 1.75; PROTHROMBIN TIME 19.8 SECONDS (12.5-14.5)
== END ==
LOC: M LAB 07:08
PROVIDERS: ATTEND Physician Assistant
DX: I48.21 Permanent atrial fibrillation (principal); Z79.01 Long term (current) use of anticoagulants

== ENCOUNTER → 2023-12-26 | Outpatient (CLI) | payer MEDICARE ==
[2023-12-26 08:15] LABS: INR 1.85; PROTHROMBIN TIME 20.7 SECONDS (12.5-14.5)
== END ==
LOC: M LAB 07:21
PROVIDERS: ATTEND Physician Assistant
DX: I48.21 Permanent atrial fibrillation (principal)

== ENCOUNTER → 2024-01-09 | Outpatient (CLI) | payer MEDICARE ==
[2024-01-09 09:16] LABS: INR 2.48
== END ==
LOC: M LAB 07:22
PROVIDERS: ATTEND Physician Assistant
DX: I48.21 Permanent atrial fibrillation (principal); Z79.01 Long term (current) use of anticoagulants

== ENCOUNTER → 2024-02-05 | Outpatient (CLI) | payer MEDICARE ==
[2024-02-05 09:12] LABS: INR 2.38; PROTHROMBIN TIME 25.2 SECONDS (12.5-14.5)
== END ==
LOC: M LAB 07:20
PROVIDERS: ATTEND Physician Assistant
DX: I48.21 Permanent atrial fibrillation (principal); Z79.01 Long term (current) use of anticoagulants

== ENCOUNTER → 2024-03-04 | Outpatient (CLI) | payer MEDICARE ==
[~2024-03-04] MED LIST changes: -GLIM1TAB4 PO; +GLIM1TAB84 PO
[2024-03-04 09:34] LABS: INR 2.78; PROTHROMBIN TIME 28.3 SECONDS (12.5-14.5)
== END ==
LOC: M LAB 08:03
PROVIDERS: ATTEND Physician Assistant
DX: I48.21 Permanent atrial fibrillation (principal); Z79.01 Long term (current) use of anticoagulants

== ENCOUNTER → 2024-03-05 | Outpatient (REF) | payer MEDICARE | LOC: M LAB REF 17:06 | PROVIDERS: ATTEND Nurse Practitioner Family | DX: R35.0 Frequency of micturition (principal) ==

== ENCOUNTER → 2024-04-01 | Outpatient (CLI) | payer MEDICARE ==
[2024-04-01 09:26] LABS: PROTHROMBIN TIME 88.6 SECONDS (12.5-14.5)
[2024-04-01 09:43] LABS: INR 12.23
== END ==
LOC: M LAB 07:30
PROVIDERS: ATTEND Physician Assistant
DX: I48.21 Permanent atrial fibrillation (principal); Z79.01 Long term (current) use of anticoagulants

== ENCOUNTER → 2024-04-03 | Outpatient (CLI) | payer MEDICARE ==
[2024-04-03 09:36] LABS: INR 4.37; PROTHROMBIN TIME 40.1 SECONDS (12.5-14.5)
== END ==
LOC: M LAB 08:39
PROVIDERS: ATTEND Physician Assistant
DX: I48.21 Permanent atrial fibrillation (principal); Z79.01 Long term (current) use of anticoagulants

== ENCOUNTER → 2024-04-05 | Outpatient (CLI) | payer MEDICARE ==
[2024-04-05 09:16] LABS: INR 1.67; PROTHROMBIN TIME 19.1 SECONDS (12.5-14.5)
== END ==
LOC: M LAB 07:23
PROVIDERS: ATTEND Physician Assistant
DX: I48.21 Permanent atrial fibrillation (principal); Z79.01 Long term (current) use of anticoagulants

== ENCOUNTER → 2024-04-15 | Outpatient (CLI) | payer MEDICARE ==
[2024-04-15 08:09] LABS: INR 1.69; PROTHROMBIN TIME 19.3 SECONDS (12.5-14.5)
== END ==
LOC: M LAB 07:10
PROVIDERS: ATTEND Physician Assistant
DX: I48.21 Permanent atrial fibrillation (principal); Z79.01 Long term (current) use of anticoagulants

== ENCOUNTER → 2024-04-22 | Outpatient (CLI) | payer MEDICARE ==
[2024-04-22 08:07] LABS: INR 2.08; PROTHROMBIN TIME 22.6 SECONDS (12.5-14.5)
== END ==
LOC: M LAB 07:22
PROVIDERS: ATTEND Physician Assistant
DX: Z79.01 Long term (current) use of anticoagulants (principal)

== ENCOUNTER → 2024-04-29 | Outpatient (CLI) | payer MEDICARE ==
[2024-04-29 07:48] LABS: INR 1.9; PROTHROMBIN TIME 21.1 SECONDS (12.5-14.5)
== END ==
LOC: M LAB 07:12
PROVIDERS: ATTEND Nurse Practitioner Family
DX: L03.115 Cellulitis of right lower limb (principal); Z79.01 Long term (current) use of anticoagulants

== ENCOUNTER → 2024-05-20 | Outpatient (CLI) | payer MEDICARE ==
[2024-05-20 09:39] LABS: INR 2.24
== END ==
LOC: M LAB 08:09
PROVIDERS: ATTEND Physician Assistant
DX: I48.21 Permanent atrial fibrillation (principal); Z79.01 Long term (current) use of anticoagulants

== ENCOUNTER → 2024-06-17 | Outpatient (CLI) | payer MEDICARE ==
[2024-06-17 08:47] LABS: INR 1.75; PROTHROMBIN TIME 19.9 SECONDS (12.5-14.5)
== END ==
LOC: M LAB 07:37
PROVIDERS: ATTEND Physician Assistant
DX: I48.21 Permanent atrial fibrillation (principal); Z79.01 Long term (current) use of anticoagulants

== ENCOUNTER → 2024-06-24 | Outpatient (CLI) | payer MEDICARE ==
[2024-06-24 09:57] LABS: BASO % 0.3 % (0.0-1.0); EOS # 0.1 10^3/uL (0.0-0.5); EOS % 1.2 % (0.0-3.0); HEMATOCRIT 33.3 % (42.0-52.0); HEMOGLOBIN 10.8 g/dl (13.5-17.5); LYMPH # 0.7 10^3/uL (1.5-5.0); LYMPH % 11.1 % (24.0-44.0); MEAN CORPUSCULAR HEMOGLOBIN 32.2 pg (27.0-33.0); MEAN CORPUSCULAR HGB CONC 32.4 g/dl (32.0-36.5); MEAN CORPUSCULAR VOLUME 99.4 fl (80.0-96.0); MONO # 0.4 10^3/uL (0.0-0.8); MONO % 7.2 % (2.0-8.0); NEUTROPHILS # 4.7 10^3/uL (1.5-8.5); NEUTROPHILS % 79.9 % (36.0-66.0); PLATELET COUNT, AUTOMATED 162 10^3/uL (150-450); RED BLOOD COUNT 3.35 10^6/uL (4.30-6.10); WHITE BLOOD COUNT 5.9 10^3/uL (4.0-10.0)
[2024-06-24 10:33] LABS: ALBUMIN 3.4 G/DL (3.2-5.2); BILIRUBIN,TOTAL 0.3 MG/DL (0.3-1.2); CALCIUM LEVEL 7.9 MG/DL (8.3-10.6); CREATININE FOR GFR 1.88 MG/DL (0.70-1.30); GLOMERULAR FILTRATION RATE 36.8 (>35); POTASSIUM SERUM 4.7 MMOL/L (3.5-5.1); TOTAL PROTEIN 6.6 G/DL (5.7-8.2)
== END ==
LOC: M RAD 09:09
PROVIDERS: ATTEND Nurse Practitioner Family
DX: R05.9 Cough, unspecified (principal); R06.02 Shortness of breath

== ENCOUNTER → 2024-07-01 | Outpatient (CLI) | payer MEDICARE ==
[2024-07-01 09:19] LABS: INR 2.38; PROTHROMBIN TIME 25.2 SECONDS (12.5-14.5)
== END ==
LOC: M LAB 07:45
PROVIDERS: ATTEND Physician Assistant
DX: I48.21 Permanent atrial fibrillation (principal); Z79.01 Long term (current) use of anticoagulants

== ENCOUNTER → 2024-07-08 | Outpatient (CLI) | payer MEDICARE ==
[2024-07-08 10:05] LABS: HEMOGLOBIN A1c 7.2 % (4.0-6.0)
[2024-07-08 10:18] LABS: ALBUMIN 3.3 G/DL (3.2-5.2); BILIRUBIN,TOTAL 0.3 MG/DL (0.3-1.2); CALCIUM LEVEL 8.6 MG/DL (8.3-10.6); CREATININE FOR GFR 1.91 MG/DL (0.70-1.30); GLOMERULAR FILTRATION RATE 36.1 (>35); POTASSIUM SERUM 4.4 MMOL/L (3.5-5.1); TOTAL PROTEIN 6.4 G/DL (5.7-8.2)
== END ==
LOC: M LAB 08:37
PROVIDERS: ATTEND Nurse Practitioner Family
DX: E11.69 Type 2 diabetes mellitus with other specified complication (principal)

== ENCOUNTER → 2024-07-29 | Outpatient (CLI) | payer MEDICARE ==
[2024-07-29 08:14] LABS: INR 3.06; PROTHROMBIN TIME 30.5 SECONDS (12.5-14.5)
== END ==
LOC: M LAB 07:25
PROVIDERS: ATTEND Physician Assistant
DX: I48.21 Permanent atrial fibrillation (principal); Z79.01 Long term (current) use of anticoagulants

== ENCOUNTER → 2024-08-12 | Outpatient (CLI) | payer MEDICARE ==
[2024-08-12 09:43] LABS: INR 2.83; PROTHROMBIN TIME 29.7 SECONDS (12.5-14.5)
== END ==
LOC: M LAB 07:55
PROVIDERS: ATTEND Physician Assistant
DX: I48.21 Permanent atrial fibrillation (principal); Z79.01 Long term (current) use of anticoagulants

== ENCOUNTER → 2024-09-10 | Outpatient (CLI) | payer MEDICARE ==
[~2024-09-10] MED LIST changes: +METF-1156 PO; -METF-817 PO
[2024-09-10 13:27] LABS: INR 3.09; PROTHROMBIN TIME 31.8 SECONDS (12.5-14.5)
== END ==
LOC: M LAB 12:31
PROVIDERS: ATTEND Registered Nurse
DX: I48.21 Permanent atrial fibrillation (principal); Z79.01 Long term (current) use of anticoagulants

== ENCOUNTER → 2024-09-13 | Outpatient (CLI) | payer MEDICARE ==
[2024-09-13 11:08] LABS: BASO % 0.4 % (0.0-1.0); EOS # 0.1 10^3/uL (0.0-0.5); EOS % 1.4 % (0.0-3.0); HEMATOCRIT 33.4 % (42.0-52.0); LYMPH # 0.9 10^3/uL (1.5-5.0); LYMPH % 8.9 % (24.0-44.0); MEAN CORPUSCULAR HEMOGLOBIN 32.4 pg (27.0-33.0); MEAN CORPUSCULAR HGB CONC 32.9 g/dl (32.0-36.5); MEAN CORPUSCULAR VOLUME 98.2 fl (80.0-96.0); MONO # 0.5 10^3/uL (0.0-0.8); MONO % 5.7 % (2.0-8.0); NEUTROPHILS # 7.9 10^3/uL (1.5-8.5); PLATELET COUNT, AUTOMATED 232 10^3/uL (150-450); WHITE BLOOD COUNT 9.6 10^3/uL (4.0-10.0)
[2024-09-13 11:34] LABS: ALBUMIN 3.4 G/DL (3.2-5.2); BILIRUBIN,TOTAL 0.4 MG/DL (0.3-1.2); CALCIUM LEVEL 9.1 MG/DL (8.3-10.6); CREATININE FOR GFR 2.08 MG/DL (0.70-1.30); GLOMERULAR FILTRATION RATE 32.6 (>35); POTASSIUM SERUM 5.2 MMOL/L (3.5-5.1); TOTAL PROTEIN 7.4 G/DL (5.7-8.2)
[2024-09-13 11:35] LABS: FOLATE 10.57 NG/ML (>5.4)
== END ==
LOC: M LAB 09:40
PROVIDERS: ATTEND Psychiatry & Neurology Neurology
DX: R06.00 Dyspnea, unspecified (principal); R25.1 Tremor, unspecified

== ENCOUNTER → 2024-09-24 | Outpatient (CLI) | payer MEDICARE ==
[2024-09-24 10:36] LABS: INR 3.08; PROTHROMBIN TIME 31.6 SECONDS (12.5-14.5)
== END ==
LOC: M LAB 09:52
PROVIDERS: ATTEND Physician Assistant
DX: I48.21 Permanent atrial fibrillation (principal); Z79.01 Long term (current) use of anticoagulants

== ENCOUNTER → 2024-10-01 | Outpatient (CLI) | payer MEDICARE ==
[2024-10-01 14:48] LABS: INR 1.8
== END ==
LOC: M LAB 13:51
PROVIDERS: ATTEND Physician Assistant
DX: I48.21 Permanent atrial fibrillation (principal); Z79.01 Long term (current) use of anticoagulants

== ENCOUNTER → 2024-10-03 | Outpatient (CLI) | payer MEDICARE ==
[2024-10-03 09:23] LABS: INR 1.57
== END ==
LOC: M LAB 08:34
PROVIDERS: ATTEND Physician Assistant
DX: I48.21 Permanent atrial fibrillation (principal); Z79.01 Long term (current) use of anticoagulants

== ENCOUNTER → 2024-10-16 | Outpatient (CLI) | payer MEDICARE ==
[2024-10-16 10:00] LABS: INR 1.96; PROTHROMBIN TIME 22.5 SECONDS (12.5-14.5)
== END ==
LOC: M LAB 09:08
PROVIDERS: ATTEND Internal Medicine Cardiovascular Disease
DX: I48.21 Permanent atrial fibrillation (principal); Z79.01 Long term (current) use of anticoagulants

== ENCOUNTER → 2024-10-21 | Outpatient (REF) | payer MEDICARE | LOC: M LAB REF 16:15 | PROVIDERS: ATTEND Podiatrist | DX: E11.621 Type 2 diabetes mellitus with foot ulcer (principal) ==

== ENCOUNTER → 2024-10-23 | Outpatient (CLI) | payer MEDICARE ==
[2024-10-23 17:21] LABS: INR 2.19; PROTHROMBIN TIME 24.4 SECONDS (12.5-14.5)
== END ==
LOC: M LAB 16:26
PROVIDERS: ATTEND Physician Assistant
DX: I48.21 Permanent atrial fibrillation (principal); Z79.01 Long term (current) use of anticoagulants

== ENCOUNTER → 2024-10-28 | Outpatient (CLI) | payer MEDICARE | LOC: M RAD 10:26 | PROVIDERS: ATTEND Physician Assistant | DX: R06.02 Shortness of breath (principal); J98.11 Atelectasis; R91.8 Other nonspecific abnormal finding of lung field; K80.20 Calculus of gallbladder without cholecystitis without obstruction ==

== ENCOUNTER → 2024-11-04 | Outpatient (CLI) | payer MEDICARE ==
[2024-11-04 10:58] LABS: INR 2.58; PROTHROMBIN TIME 27.7 SECONDS (12.5-14.5)
== END ==
LOC: M LAB 09:56
PROVIDERS: ATTEND Physician Assistant
DX: I48.21 Permanent atrial fibrillation (principal); Z79.01 Long term (current) use of anticoagulants

== ENCOUNTER 2024-12-02 08:17 | Inpatient (IN) | payer MEDICARE ==
[~2024-12-02] VITALS: Ht 172.7 cm; Wt 107.7 kg
[2024-12-02] MEDS ORDERED: FARX1TAB3 PO (08:32)
[2024-12-02] MEDS ORDERED: TAMS1CAP17 PO (08:32)
[2024-12-02] MEDS ORDERED: LOSA25TA13 (08:32)
[2024-12-02 09:33] LABS: VENOUS BASE EXCESS -0.4 (-2.0-2.0); VENOUS HCO3 24.5 MMOL/L (23.0-27.0); VENOUS O2 SATURATION 83.9 % (60.0-80.0); VENOUS PARTIAL PRESSURE CO2 40.9 mmHg (38.0-50.0); VENOUS PARTIAL PRESSURE O2 52.3 mmHg (30.0-50.0); VENOUS PH 7.395 UNITS (7.330-7.430); VENOUS STANDARD HCO3 23.9 MMOL/L; VENOUS TOTAL CO2 25.7 MMOL/L (24.0-28.0)
[2024-12-02 09:40] LABS: HEMATOCRIT 34.7 % (42.0-52.0); HEMOGLOBIN 11.4 g/dl (13.5-17.5); MEAN CORPUSCULAR HEMOGLOBIN 31.8 pg (27.0-33.0); MEAN CORPUSCULAR HGB CONC 32.9 g/dl (32.0-36.5); MEAN CORPUSCULAR VOLUME 96.9 fl (80.0-96.0); PLATELET COUNT, AUTOMATED 337 10^3/uL (150-450); RED BLOOD COUNT 3.58 10^6/uL (4.30-6.10); WHITE BLOOD COUNT 17.2 10^3/uL (4.0-10.0)
[2024-12-02 09:41] LABS: BASO % 0.1 % (0.0-1.0); HEMATOCRIT 34.9 % (42.0-52.0); HEMOGLOBIN 11.4 g/dl (13.5-17.5); LYMPH # 0.4 10^3/uL (1.5-5.0); LYMPH % 2.4 % (24.0-44.0); MEAN CORPUSCULAR HEMOGLOBIN 32.2 pg (27.0-33.0); MEAN CORPUSCULAR HGB CONC 32.7 g/dl (32.0-36.5); MEAN CORPUSCULAR VOLUME 98.6 fl (80.0-96.0); MONO # 0.6 10^3/uL (0.0-0.8); MONO % 3.6 % (2.0-8.0); NEUTROPHILS # 15.5 10^3/uL (1.5-8.5); PLATELET COUNT, AUTOMATED 342 10^3/uL (150-450); RED BLOOD COUNT 3.54 10^6/uL (4.30-6.10); WHITE BLOOD COUNT 16.7 10^3/uL (4.0-10.0)
[2024-12-02 09:52] LABS: INR 3.22; PARTIAL THROMBOPLASTIN TIME 42.1 SECONDS (24.8-34.2); PROTHROMBIN TIME 32.7 SECONDS (12.5-14.5)
[2024-12-02 10:09] LABS: CK-MB VALUE MASS 90.4 NG/ML (<3.6); ETHYL ALCOHOL (ETHANOL) 0.005 % (0.000-0.010)
[2024-12-02 10:11] LABS: ALBUMIN 3.4 G/DL (3.2-5.2); BILIRUBIN,DIRECT 0.2 MG/DL (<0.4); BILIRUBIN,TOTAL 0.5 MG/DL (0.3-1.2); CALCIUM LEVEL 8.7 MG/DL (8.3-10.6); CREATININE FOR GFR 3.42 MG/DL (0.70-1.30); GLOMERULAR FILTRATION RATE 18.4 (>35); TOTAL PROTEIN 7.7 G/DL (5.7-8.2)
[2024-12-02 10:43] LABS: MB/CK RELATIVE INDEX 0.77 (< OR =4)
[2024-12-02] MEDS: CEFEPIME HCL 2 GM in DEXTROSE 5% (D5W) ADV/MINI-BAG 50 ML IV ONE (11:03)
[2024-12-02] MEDS: [UNRECOGNIZED DRUG - OTHER] IV STA (11:04)
[2024-12-02] MEDS: NS 0.9% IV STA (11:04)
[2024-12-02] MEDS ORDERED: NETA2.5D2 OU (11:32)
[2024-12-02] MEDS ORDERED: CALC1CAP31 PO (11:32)
[2024-12-02] MEDS ORDERED: MIDO5TA PO (11:32)
[2024-12-02] MEDS ORDERED: VITA100T14 PO (11:32)
[2024-12-02] MEDS ORDERED: CLOB0.0548 TOP (11:32)
[2024-12-02] MEDS ORDERED: HOME MED LIST COMPLETE! XX SCH (11:35)
[2024-12-02 14:41] LABS: C REACTIVE PROTEIN QUANTITATIV 7.12 MG/DL (<1.0)
[2024-12-02 14:42] LABS: CK-MB VALUE MASS 147.4 NG/ML (<3.6)
[2024-12-02 14:55] LABS: PROCALCITONIN 1.51 ng/ml
[2024-12-02 15:15] LABS: CPK CREATINE PHOSPHOKINASE 24208 U/L (46-171)
[2024-12-02 15:55] LABS: MYOGLOBIN > 20000 NG/ML (<110)
[2024-12-02] MEDS ORDERED: VANCOMYCIN HCL 1,000 MG in IV FLUID PLACE HOLDER 1 EA IV SCH (16:25)
[2024-12-02] MEDS: FUROSEMIDE 40MG/4ML VIAL IV SCH (19:08)
[2024-12-02] MEDS: OXYMETAZOLINE 0.05% NASAL SPRAY ONE (19:08)
[2024-12-02] MEDS: VANCOMYCIN HCL 1,500 MG, VIAL MATE ADAPTER 1 EACH in NS 500 ML IV ONE (19:08)
[2024-12-02 19:49] LABS: CK-MB VALUE MASS 105.7 NG/ML (<3.6)
[2024-12-02 20:06] LABS: MB/CK RELATIVE INDEX 0.38 (< OR =4)
[2024-12-02 20:40] VITALS: BP 133/66; TEMP 97.4; O2SAT 98
[2024-12-02] MEDS: SODIUM BICARBONATE 100 MEQ in D5W 1,000 ML IV SCH (22:54)
[2024-12-02 23:44] VITALS: BP 129/59; TEMP 97.3; O2SAT 94
[2024-12-03] VITALS (19 sets, daily range): BP systolic 120–133; BP diastolic 63–97; TEMP 97.4–98; O2SAT 91–99
[2024-12-03 03:56] LABS: BASO % 0.2 % (0.0-1.0); HEMATOCRIT 26.9 % (42.0-52.0); LYMPH # 0.6 10^3/uL (1.5-5.0); LYMPH % 4.3 % (24.0-44.0); MEAN CORPUSCULAR HEMOGLOBIN 32.5 pg (27.0-33.0); MEAN CORPUSCULAR HGB CONC 33.5 g/dl (32.0-36.5); MEAN CORPUSCULAR VOLUME 97.1 fl (80.0-96.0); MONO # 0.7 10^3/uL (0.0-0.8); MONO % 5.1 % (2.0-8.0); NEUTROPHILS # 11.8 10^3/uL (1.5-8.5); PLATELET COUNT, AUTOMATED 299 10^3/uL (150-450); RED BLOOD COUNT 2.77 10^6/uL (4.30-6.10); WHITE BLOOD COUNT 13.1 10^3/uL (4.0-10.0)
[2024-12-03 03:59] LABS: CK-MB VALUE MASS 76.4 NG/ML (<3.6)
[2024-12-03 04:13] LABS: CALCIUM LEVEL 7.6 MG/DL (8.3-10.6); CREATININE FOR GFR 3.62 MG/DL (0.70-1.30); GLOMERULAR FILTRATION RATE 17.2 (>35); MB/CK RELATIVE INDEX 0.3 (< OR =4); POTASSIUM SERUM 4.9 MMOL/L (3.5-5.1)
[2024-12-03 04:59] LABS: KETONE, URINE AUTO RFX NEGATIVE (NEGATIVE); LEUKOCYTE ESTERASE UR AUTO RFX NEGATIVE (NEGATIVE); MUCUS, URINE RFX SMALL (NEGATIVE); NITRITE, URINE AUTO RFX NEGATIVE (NEGATIVE); RBC, URINE AUTO RFX 1 /HPF (0-3); SQUAM EPITHELIAL CELL UR AURFX 0 /HPF (0-6); WBC, URINE AUTO RFX 5 /HPF (0-3)
[2024-12-03 05:22] LABS: AMPHETAMINES LEVEL URINE NEGATIVE (NEGATIVE); BENZODIAZEPINES URINE NEGATIVE (NEGATIVE); CANNABINOIDS URINE NEGATIVE (NEGATIVE); COCAINE METABOLITE URINE NEGATIVE (NEGATIVE); METHADONE URINE NEGATIVE (NEGATIVE); OPIATES URINE NEGATIVE (NEGATIVE); PHENCYCLIDINE URINE NEGATIVE (NEGATIVE)
[2024-12-03 05:28] LABS: BARBITURATES URINE POSITIVE (NEGATIVE)
[2024-12-03] MEDS: OXYMETAZOLINE 0.05% NASAL SPRAY SCH (08:05)
[2024-12-03] MEDS: CEFEPIME HCL 2 GM in DEXTROSE 5% (D5W) ADV/MINI-BAG 50 ML IV SCH (09:12)
[2024-12-03 13:19] LABS: CK-MB VALUE MASS 44.2 NG/ML (<3.6)
[2024-12-03] MEDS ORDERED: GLUCAGON INJ 1MG VIAL SC PRN (13:25)
[2024-12-03] MEDS ORDERED: GLUCOSE 4 GM CHEW PO PRN (13:25)
[2024-12-03] MEDS ORDERED: DEXTROSE 50% 50ML SYRINGE IV PRN (13:25)
[2024-12-03 13:36] LABS: MB/CK RELATIVE INDEX 0.22 (< OR =4)
[2024-12-03] MEDS: VANCOMYCIN HCL 1,250 MG, VIAL MATE ADAPTER 1 EACH in NS 250 ML IV SCH (14:42)
[2024-12-03] MEDS: INSULIN LISPRO (NovoLOG) PER UNIT SC SCH ×2 (18:25→20:50)
[2024-12-04] VITALS (31 sets, daily range): BP systolic 104–136; BP diastolic 53–68; TEMP 97.5–97.9; O2SAT 93–97
[2024-12-04] MEDS: ACETAMINOPHEN 325 MG TAB PO ONE (00:10)
[2024-12-04 06:58] LABS: BASO % 0.1 % (0.0-1.0); EOS # 0.1 10^3/uL (0.0-0.5); EOS % 0.9 % (0.0-3.0); HEMATOCRIT 23.2 % (42.0-52.0); HEMOGLOBIN 7.8 g/dl (13.5-17.5); LYMPH # 0.7 10^3/uL (1.5-5.0); LYMPH % 6.4 % (24.0-44.0); MEAN CORPUSCULAR HEMOGLOBIN 32.4 pg (27.0-33.0); MEAN CORPUSCULAR HGB CONC 33.6 g/dl (32.0-36.5); MEAN CORPUSCULAR VOLUME 96.3 fl (80.0-96.0); MONO # 0.7 10^3/uL (0.0-0.8); MONO % 6.5 % (2.0-8.0); NEUTROPHILS # 9.2 10^3/uL (1.5-8.5); NEUTROPHILS % 85.6 % (36.0-66.0); PLATELET COUNT, AUTOMATED 245 10^3/uL (150-450); RED BLOOD COUNT 2.41 10^6/uL (4.30-6.10); WHITE BLOOD COUNT 10.7 10^3/uL (4.0-10.0)
[2024-12-04 07:47] LABS: HEMOGLOBIN A1c 7.3 % (4.0-6.0)
[2024-12-04 07:50] LABS: PROCALCITONIN 1.17 ng/ml
[2024-12-04 08:05] LABS: ALBUMIN 2.4 G/DL (3.2-5.2); BILIRUBIN,DIRECT 0.2 MG/DL (<0.4); BILIRUBIN,TOTAL 0.4 MG/DL (0.3-1.2); CALCIUM LEVEL 7.2 MG/DL (8.3-10.6); CREATININE FOR GFR 3.18 MG/DL (0.70-1.30); POTASSIUM SERUM 4.2 MMOL/L (3.5-5.1); TOTAL PROTEIN 5.8 G/DL (5.7-8.2)
[2024-12-05] VITALS (14 sets, daily range): BP systolic 104–149; BP diastolic 57–76; TEMP 97.1–98.2; O2SAT 95–98
[2024-12-05 06:03] LABS: BASO % 0.3 % (0.0-1.0); EOS # 0.1 10^3/uL (0.0-0.5); EOS % 1.3 % (0.0-3.0); HEMATOCRIT 23.1 % (42.0-52.0); HEMOGLOBIN 7.7 g/dl (13.5-17.5); LYMPH # 0.7 10^3/uL (1.5-5.0); LYMPH % 7.7 % (24.0-44.0); MEAN CORPUSCULAR HGB CONC 33.3 g/dl (32.0-36.5); MEAN CORPUSCULAR VOLUME 95.9 fl (80.0-96.0); MONO # 0.6 10^3/uL (0.0-0.8); MONO % 6.2 % (2.0-8.0); NEUTROPHILS # 7.8 10^3/uL (1.5-8.5); NEUTROPHILS % 83.8 % (36.0-66.0); PLATELET COUNT, AUTOMATED 255 10^3/uL (150-450); RED BLOOD COUNT 2.41 10^6/uL (4.30-6.10); WHITE BLOOD COUNT 9.3 10^3/uL (4.0-10.0)
[2024-12-05 06:32] LABS: CALCIUM LEVEL 7.5 MG/DL (8.3-10.6); CREATININE FOR GFR 2.31 MG/DL (0.70-1.30); GLOMERULAR FILTRATION RATE 28.9 (>35)
[2024-12-05] MEDS: MIRALAX *UNIT DOSE* 17GM PACKET PO SCH (09:00)
[2024-12-05] MEDS: ATORVASTATIN 20 MG TAB PO SCH (09:31)
[2024-12-05] MEDS: allopurinoL 100 MG TAB PO SCH (09:31)
[2024-12-05] MEDS: PRIMIDONE 50MG TAB PO SCH (09:31)
[2024-12-05] MEDS: CALCITRIOL 0.25 MCG CAP (S0169) PO SCH (09:31)
[2024-12-05] MEDS: GLIMEPIRIDE 1 MG TABLET PO SCH (09:31)
[2024-12-05 12:23] LABS: FERRITIN 233.8 NG/ML (10.5-307.3)
[2024-12-05 12:24] LABS: FOLATE 5.2 NG/ML (>5.4)
[2024-12-05 12:37] LABS: PERCENT SATURATION 13.1 % (19.7-50.0)
[2024-12-05] MEDS: SENOKOT S TAB PO SCH (13:56)
[2024-12-05 15:12] LABS: HEMATOCRIT 29.7 % (42.0-52.0)
[2024-12-05 15:17] LABS: HEMOGLOBIN 9.8 g/dl (13.5-17.5)
[2024-12-05] MEDS: TAMSULOSIN 0.4 MG CAP PO SCH (21:06)
[2024-12-06 02:00] VITALS: BP 128/62; TEMP 97.7; O2SAT 96
[2024-12-06 08:08] LABS: BASO % 0.4 % (0.0-1.0); EOS # 0.2 10^3/uL (0.0-0.5); EOS % 1.9 % (0.0-3.0); HEMATOCRIT 28.8 % (42.0-52.0); HEMOGLOBIN 9.4 g/dl (13.5-17.5); LYMPH # 0.8 10^3/uL (1.5-5.0); LYMPH % 8.9 % (24.0-44.0); MEAN CORPUSCULAR HEMOGLOBIN 31.3 pg (27.0-33.0); MEAN CORPUSCULAR HGB CONC 32.6 g/dl (32.0-36.5); MONO # 0.7 10^3/uL (0.0-0.8); MONO % 7.1 % (2.0-8.0); NEUTROPHILS # 7.5 10^3/uL (1.5-8.5); NEUTROPHILS % 80.4 % (36.0-66.0); PLATELET COUNT, AUTOMATED 279 10^3/uL (150-450); WHITE BLOOD COUNT 9.3 10^3/uL (4.0-10.0)
[2024-12-06 08:33] LABS: CALCIUM LEVEL 7.8 MG/DL (8.3-10.6); CREATININE FOR GFR 2.09 MG/DL (0.70-1.30); GLOMERULAR FILTRATION RATE 32.4 (>35)
[2024-12-06] MEDS: FOLIC ACID 1MG TAB PO SCH (09:49)
[2024-12-06] MEDS: FERRIC CARBOXYMALTOSE INJ 750 MG, VIAL MATE ADAPTER 1 EACH in NS 100 ML IV ONE (11:09)
[2024-12-06 12:00] VITALS: BP 122/62; TEMP 98.1; O2SAT 94
[2024-12-06 13:57] LABS: PROCALCITONIN 0.39 ng/ml
[2024-12-06 22:57] VITALS: BP 125/64; TEMP 98.1; O2SAT 95
[2024-12-07] MEDS: ACETAMINOPHEN 325 MG TAB PO ONE (01:56)
[2024-12-07 05:40] LABS: BASO % 0.4 % (0.0-1.0); EOS # 0.2 10^3/uL (0.0-0.5); EOS % 1.9 % (0.0-3.0); HEMATOCRIT 27.1 % (42.0-52.0); HEMOGLOBIN 9.1 g/dl (13.5-17.5); LYMPH # 0.6 10^3/uL (1.5-5.0); LYMPH % 6.5 % (24.0-44.0); MEAN CORPUSCULAR HEMOGLOBIN 32.2 pg (27.0-33.0); MEAN CORPUSCULAR HGB CONC 33.6 g/dl (32.0-36.5); MEAN CORPUSCULAR VOLUME 95.8 fl (80.0-96.0); MONO # 0.6 10^3/uL (0.0-0.8); MONO % 6.2 % (2.0-8.0); NEUTROPHILS # 8.2 10^3/uL (1.5-8.5); NEUTROPHILS % 83.6 % (36.0-66.0); PLATELET COUNT, AUTOMATED 266 10^3/uL (150-450); RED BLOOD COUNT 2.83 10^6/uL (4.30-6.10); WHITE BLOOD COUNT 9.8 10^3/uL (4.0-10.0)
[2024-12-07 06:10] LABS: ALBUMIN 2.2 G/DL (3.2-5.2); BILIRUBIN,DIRECT 0.2 MG/DL (<0.4); BILIRUBIN,TOTAL 0.6 MG/DL (0.3-1.2); CREATININE FOR GFR 1.84 MG/DL (0.70-1.30); GLOMERULAR FILTRATION RATE 37.6 (>35); POTASSIUM SERUM 3.4 MMOL/L (3.5-5.1); TOTAL PROTEIN 5.8 G/DL (5.7-8.2)
[2024-12-07] MEDS: CEFDINIR 300 MG CAP (OMNICEF) PO SCH (09:17)
[2024-12-07] MEDS: POTASSIUM CHLORIDE 10MEQ SR TABLET PO ONE (09:18)
[2024-12-07 12:00] VITALS: BP 125/56; TEMP 97.6; O2SAT 95
[2024-12-07] MEDS: GLIMEPIRIDE 2 MG TAB PO SCH (16:57)
[2024-12-07 19:52] VITALS: BP 143/83; TEMP 97.7; O2SAT 96
[2024-12-08 05:31] VITALS: BP 141/62; TEMP 98.2; O2SAT 95
[2024-12-08 06:21] LABS: BASO # 0.1 10^3/uL (0.0-0.2); BASO % 0.5 % (0.0-1.0); EOS # 0.2 10^3/uL (0.0-0.5); HEMATOCRIT 28.7 % (42.0-52.0); HEMOGLOBIN 9.6 g/dl (13.5-17.5); LYMPH # 0.9 10^3/uL (1.5-5.0); LYMPH % 7.5 % (24.0-44.0); MEAN CORPUSCULAR HEMOGLOBIN 32.4 pg (27.0-33.0); MEAN CORPUSCULAR HGB CONC 33.4 g/dl (32.0-36.5); MONO # 0.7 10^3/uL (0.0-0.8); MONO % 5.9 % (2.0-8.0); NEUTROPHILS # 9.7 10^3/uL (1.5-8.5); NEUTROPHILS % 82.6 % (36.0-66.0); PLATELET COUNT, AUTOMATED 287 10^3/uL (150-450); RED BLOOD COUNT 2.96 10^6/uL (4.30-6.10); WHITE BLOOD COUNT 11.8 10^3/uL (4.0-10.0)
[2024-12-08 06:55] LABS: CALCIUM LEVEL 8.3 MG/DL (8.3-10.6); CREATININE FOR GFR 1.74 MG/DL (0.70-1.30); GLOMERULAR FILTRATION RATE 40.1 (>35); POTASSIUM SERUM 4.1 MMOL/L (3.5-5.1)
[2024-12-08 12:00] VITALS: BP 124/60; TEMP 97.6; O2SAT 96
[2024-12-08 19:41] VITALS: BP 147/82; TEMP 98.1; O2SAT 100
[2024-12-09 04:04] VITALS: BP 156/85; TEMP 97.5; O2SAT 96
[2024-12-09 07:11] LABS: BASO # 0.1 10^3/uL (0.0-0.2); BASO % 0.4 % (0.0-1.0); EOS # 0.2 10^3/uL (0.0-0.5); EOS % 2.1 % (0.0-3.0); HEMATOCRIT 30.4 % (42.0-52.0); HEMOGLOBIN 9.8 g/dl (13.5-17.5); LYMPH # 0.8 10^3/uL (1.5-5.0); MEAN CORPUSCULAR HEMOGLOBIN 31.6 pg (27.0-33.0); MEAN CORPUSCULAR HGB CONC 32.2 g/dl (32.0-36.5); MEAN CORPUSCULAR VOLUME 98.1 fl (80.0-96.0); MONO # 0.6 10^3/uL (0.0-0.8); MONO % 5.5 % (2.0-8.0); NEUTROPHILS # 9.3 10^3/uL (1.5-8.5); NEUTROPHILS % 83.2 % (36.0-66.0); PLATELET COUNT, AUTOMATED 280 10^3/uL (150-450); WHITE BLOOD COUNT 11.2 10^3/uL (4.0-10.0)
[2024-12-09 07:33] LABS: CALCIUM LEVEL 8.5 MG/DL (8.3-10.6); CREATININE FOR GFR 1.87 MG/DL (0.70-1.30); GLOMERULAR FILTRATION RATE 36.9 (>35); POTASSIUM SERUM 4.4 MMOL/L (3.5-5.1)
[2024-12-09 09:30] VITALS: BP 146/86; TEMP 97.7; O2SAT 93
[2024-12-09 12:00] VITALS: BP 125/56; TEMP 97.6; O2SAT 96
[2024-12-09 19:33] VITALS: BP 149/66; TEMP 97.9; O2SAT 97
[2024-12-10 03:50] VITALS: BP 146/68; TEMP 97.9; O2SAT 96
[2024-12-10 12:00] VITALS: BP 140/67; TEMP 97.7; O2SAT 93
[2024-12-10] MEDS ORDERED: CEFD300CAP PO (12:58)
[2024-12-10 20:07] VITALS: BP 136/72; TEMP 97.5; O2SAT 92
[2024-12-11 03:35] VITALS: BP 124/70; TEMP 97.7; O2SAT 94
[2024-12-11 10:51] VITALS: BP 121/68; TEMP 97.5; O2SAT 96
== END 2024-12-11 13:50 | DRG 872 ==
LOC: EDBD 08:17 → M ED 08:17 → M ED INP 12:39 → M PCU 20:31 → M MS5PR 12-05 20:00
PROVIDERS: ADMIT General Practice; ATTEND Internal Medicine
PROC: 30233N1 Transfusion of Nonautologous Red Blood Cells into Peripheral Vein, Percutaneous Approach (ICD-10-PCS; principal; 2024-12-05)
DX: A41.9 Sepsis, unspecified organism (principal); N17.9 Acute kidney failure, unspecified; I48.21 Permanent atrial fibrillation; D62 Acute posthemorrhagic anemia; M62.82 Rhabdomyolysis; E87.1 Hypo-osmolality and hyponatremia; D68.32 Hemorrhagic disorder due to extrinsic circulating anticoagulants; I13.0 Hypertensive heart and chronic kidney disease with heart failure and stage 1 through stage 4 chronic kidney disease, or unspecified chronic kidney disease; I50.32 Chronic diastolic (congestive) heart failure; Z95.0 Presence of cardiac pacemaker; N18.32 Chronic kidney disease, stage 3b; R04.0 Epistaxis; I27.20 Pulmonary hypertension, unspecified; G47.33 Obstructive sleep apnea (adult) (pediatric); E11.22 Type 2 diabetes mellitus with diabetic chronic kidney disease; K40.20 Bilateral inguinal hernia, without obstruction or gangrene, not specified as recurrent; E11.65 Type 2 diabetes mellitus with hyperglycemia; I35.0 Nonrheumatic aortic (valve) stenosis; I25.10 Atherosclerotic heart disease of native coronary artery without angina pectoris; E78.5 Hyperlipidemia, unspecified; S09.90XA Unspecified injury of head, initial encounter; E11.621 Type 2 diabetes mellitus with foot ulcer; F03.90 Unspecified dementia, unspecified severity, without behavioral disturbance, psychotic disturbance, mood disturbance, and anxiety; E66.01 Morbid (severe) obesity due to excess calories; Z68.33 Body mass index [BMI] 33.0-33.9, adult; E87.6 Hypokalemia; R74.01 Elevation of levels of liver transaminase levels; G25.0 Essential tremor; Z79.01 Long term (current) use of anticoagulants; R91.8 Other nonspecific abnormal finding of lung field; K42.9 Umbilical hernia without obstruction or gangrene; K80.20 Calculus of gallbladder without cholecystitis without obstruction; Z88.8 Allergy status to other drugs, medicaments and biological substances; Z79.899 Other long term (current) drug therapy; Z79.82 Long term (current) use of aspirin; W18.30XA Fall on same level, unspecified, initial encounter; Y92.009 Unspecified place in unspecified non-institutional (private) residence as the place of occurrence of the external cause; H40.9 Unspecified glaucoma; L97.529 Non-pressure chronic ulcer of other part of left foot with unspecified severity; L97.519 Non-pressure chronic ulcer of other part of right foot with unspecified severity